=== PATIENT | female | born 1955 | race Caucasian/White ===

== ENCOUNTER 2016-05-28 23:48 | Inpatient (IN) | payer MEDICARE ==
[~2016-05-28] VITALS: Ht 165.1 cm; Wt 72.3 kg
[~2016-05-28 23:48] MED LIST: ESTR2TAB PO; GABA600T PO; IBUP-232 PO; KERASAL; [UNRECOGNIZED DRUG - CODE] PO; [UNRECOGNIZED DRUG - OTHER]; [UNRECOGNIZED DRUG - REMARK]
[2016-05-28 23:49] VITALS: BP 124/77; PULSE 59; RESP 16; TEMP 97.6; O2SAT 96
[2016-05-29] VITALS (21 sets, daily range): BP systolic 110–148; BP diastolic 52–73; PULSE 52–73; RESP 16–18; TEMP 97.8–98.4; O2SAT 91–97
[2016-05-29] MEDS ORDERED: SODIUM CHLORIDE 0.9% FLUSH 10 ML FLUSH IVF PRN (00:30)
[2016-05-29] MEDS ORDERED: ASPIRIN 81 MG CHEW TAB PO ONE (00:30)
[2016-05-29] MEDS: NITROGLYCERIN 0.4 MG SL 25 TABS/BTL SL SCH ×3 (00:35→00:54)
[2016-05-29 00:44] LABS: AUTOMATED NEUTROPHIL # 7.8 TH/MM3 (1.8-7.7); BASOPHIL # 0.1 TH/MM3 (0-0.2); BASOPHIL % 0.4 % (0.0-2.0); EOSINOPHIL # 0.2 TH/MM3 (0-0.4); EOSINOPHIL % 1.4 % (0.0-4.0); HEMO FLAGS DIFF FINAL; LYMPH % 27.2 % (9.0-44.0); LYMPHOCYTE # 3.2 TH/MM3 (1.0-4.8); MEAN CELL VOLUME 89.1 FL (80.0-100.0); MEAN CORPUSCULAR HEMOGLOBIN 30.1 PG (27.0-34.0); MEAN CORPUSCULAR HGB CONC 33.8 % (32.0-36.0); MONO % 5.8 % (0.0-8.0); NEUT % 65.2 % (16.0-70.0); PLATELET COUNT 275 TH/MM3 (150-450); RED BLOOD COUNT 4.38 MIL/MM3 (4.00-5.30); RED CELL DISTRIBUTION WIDTH 13.6 % (11.6-17.2); WHITE BLOOD COUNT 11.9 TH/MM3 (4.0-11.0)
--- NOTE | 2016-05-29 00:53 | RADRPT ---
EXAM DATE/TIME: 05/29/2016 00:40 [facility] COMPARISON: No previous studies available for comparison. INDICATIONS : Chest pain. MEDICAL HISTORY : None. SURGICAL HISTORY : None. ENCOUNTER: Initial ACUITY: 1 day PAIN SCORE: 6/10 LOCATION: Bilateral chest FINDINGS: A single view of the chest demonstrates the lungs to be symmetrically aerated without evidence of mas s, infiltrate or effusion. The cardiomediastinal contours are unremarkable. Osseous structures are intact. CONCLUSION: No acute disease. Louie Tanner Jr., MD on May 29, 2016 at 0:52 Board Certified Radiologist. This report was verified electronically.
[2016-05-29 00:58] LABS: APTT (PATIENT) 27.8 SEC (24.3-30.1); INTERNATIONAL NORMALIZED RATIO 0.9 RATIO; PROTHROMBIN TIME - PATIENT 10.2 SEC (9.8-11.6)
--- NOTE | 2016-05-29 01:06 | PD ---
HPI Chief Complaint: Chest Pain Time Seen by Provider: 00:18 Travel History International Travel<30 days: No Contact w/Intl Traveler<30days: No Traveled to known affect area: No History of Present Illness HPI Patient is a 61-year-old female with history of tobacco abuse who presents the emergency department with complaint of chest pain and syncopal episode. Approximately 3 hours prior to arrival patient was sitting on the front porch with her family, felt substernal chest pressure radiating to the arms. She describes a "pulsating" feeling in her arms at the time. This is followed with nausea, lightheadedness and a brief syncopal episode. After which patient came to and vomited. She has not had any recurrent syncopal episodes but her chest pain has been persistent. Chest pain is substernal, pressure. No associated shortness of breath. EMS was called to the house, patient declined transport. She has not taken anything for pain prior to arrival. She states her pain is approximately 3 out of 10 in severity at this time. She denies any history of cardiac problems, but describes having a stress test and a cardiac catheter approximately 10 years ago. Unclear why this was performed. PFSH Past Medical History Medical other: Yes (back problems) ?: Not : 2 Para: 1 Past Surgical History Hysterectomy: Yes Social History Alcohol Use: No Tobacco Use: Yes (1ppd) Substance Use: No Allergies-Medications (Allergen,Severity, Reaction): Coded Allergies: No Known Allergies (Unverified , 05/29/16) Reported Meds & Prescriptions Reported Meds & Active Scripts Active Gabapentin 600 Mg Tab 600 Mg PO TID Ibuprofen 600 Mg Tab 600 Mg PO Q6H PRN Estradiol 2 Mg Tab 2 Mg PO DAILY Review of Systems ROS Limitations: Poor Historian Except as stated in HPI: all other systems reviewed are Neg Physical Exam Narrative GENERAL: Adult female appearing older than stated age in no acute distress, smells heavily of tobacco SKIN: Focused skin assessment warm/dry. HEAD: Normocephalic. EYES: No scleral icterus. No injection or drainage. ENT: Mucous membranes pink and moist. NECK: Supple CARDIOVASCULAR: Regular rate and rhythm. No murmur appreciated. RESPIRATORY: No accessory muscle use. Clear to auscultation. Breath sounds equal bilaterally. GASTROINTESTINAL: Abdomen soft, non-tender, nondistended. MUSCULOSKELETAL: No obvious deformities. No edema. NEUROLOGICAL: Awake and alert. Motor grossly within normal limits. Normal speech. PSYCHIATRIC: Appropriate mood and affect; insight and judgment normal. Data Data Last Documented VS Vital Signs Date Time Temp Pulse Resp B/P Pulse Ox O2 Delivery O2 Flow Rate FiO2 05/29/16 00:41 91 Room Air 05/29/16 00:29 2 05/28/16 23:49 97.6 59 16 124/77 Orders Electrocardiogram (05/28/16 ) Complete Blood Count With Diff (05/28/16 23:56) Comprehensive Metabolic Panel (05/28/16 23:56) Troponin I (05/28/16 23:56) Prothrombin Time / Inr (Pt) (05/28/16 23:56) Chest, Single Ap (05/28/16 ) Ecg Monitoring (05/29/16 00:19) Bilateral Bp Monitoring (05/29/16 00:19) Iv Access Insert/Monitor (05/29/16 00:19) Oximetry (05/29/16 00:19) Oxygen Administration (05/29/16 00:19) Aspirin Chew (Aspirin Chew) (05/29/16 00:30) Sodium Chloride 0.9% Flush (Ns Flush) (05/29/16 00:30) Nitroglycerin Sl (Nitrostat Sl) (05/29/16 00:30) Electrocardiogram (05/29/16 ) Act Partial Throm Time (Ptt) (05/28/16 23:56) Ckmb (Isoenzyme) Profile (05/28/16 23:56) Magnesium (Mg) (05/28/16 23:56) Ondansetron Inj (Zofran Inj) (05/29/16 01:15) Electrocardiogram (05/29/16 ) Ondansetron Inj (Zofran Inj) (05/29/16 01:12) Heparin Infusion CORDELL.Q1H (05/29/16 01:21) Heparin Inj (Heparin Inj) (05/29/16 01:30) Heparin-D5w Inj (Heparin-D5w Inj) (05/29/16 01:30) Cbc No Diff, Includes Plts (06/01/16 06:00) Act Partial Throm Time (Ptt) (05/29/16 08:21) Occult Blood (Hemoccult) Stool (05/29/16 01:21) Nitroglycerin 2% Oint (Nitroglycerin 2% (05/29/16 01:30) Metoprolol Tartrate (Lopressor) (05/29/16 01:30) Consult Cardiology (05/29/16 ) Potassium Chloride (Kcl) (05/29/16 01:30) Diet Npo Except Meds (05/29/16 Breakfast) (Hub Use Only)Inp Phy Cons/Ref (05/29/16 ) Admit Order (Ed Use Only) (05/29/16 01:59) Labs Laboratory Tests Test 05/28/16 23:59 White Blood Count 11.9 TH/MM3 Red Blood Count 4.38 MIL/MM3 Hemoglobin 13.2 GM/DL Hematocrit 39.0 % Mean Corpuscular Volume 89.1 FL Mean Corpuscular Hemoglobin 30.1 PG Mean Corpuscular Hemoglobin 33.8 % Concent Red Cell Distribution Width 13.6 % Platelet Count 275 TH/MM3 Mean Platelet Volume 7.7 FL Neutrophils (%) (Auto) 65.2 % Lymphocytes (%) (Auto) 27.2 % Monocytes (%) (Auto) 5.8 % Eosinophils (%) (Auto) 1.4 % Basophils (%) (Auto) 0.4 % Neutrophils # (Auto) 7.8 TH/MM3 Lymphocytes # (Auto) 3.2 TH/MM3 Monocytes # (Auto) 0.7 TH/MM3 Eosinophils # (Auto) 0.2 TH/MM3 Basophils # (Auto) 0.1 TH/MM3 CBC Comment DIFF FINAL Differential Comment Prothrombin Time 10.2 SEC Prothromb Time International 0.9 RATIO Ratio Activated Partial 27.8 SEC Thromboplast Time Sodium Level 140 MEQ/L Potassium Level 3.4 MEQ/L Chloride Level 101 MEQ/L Carbon Dioxide Level 30.4 MEQ/L Anion Gap 9 MEQ/L Blood Urea Nitrogen 16 MG/DL Creatinine 1.06 MG/DL Estimat Glomerular Filtration 53 ML/MIN Rate Random Glucose 121 MG/DL Calcium Level 9.1 MG/DL Magnesium Level 1.7 MG/DL Total Bilirubin 0.2 MG/DL Aspartate Amino Transf 14 U/L (AST/SGOT) Alanine Aminotransferase 14 U/L (ALT/SGPT) Alkaline Phosphatase 52 U/L Total Creatine Kinase 91 U/L Troponin I 0.34 NG/ML Total Protein 7.1 GM/DL Albumin 3.6 GM/DL [facility] Medical Decision Making Medical Screen Exam Complete: Yes Emergency Medical Condition: Yes Medical Record Reviewed: Yes Differential Diagnosis 61-year-old female with history of tobacco abuse here with complaint of chest pain with associated presyncopal episode. Differential includes ACS, arrhythmia , musculoskeletal, GERD, symptomatic anemia, electrolyte abnormality and less likely PE or dissection. Narrative Course Patient placed on monitor, IV established and blood obtained. A twelve-lead EKG shows sinus rhythm. Patient has [address] elevation in V1, 0.[address] elevation in aVR. ST depression in lateral leads V5, V6 with T-wave inversions in 1 and aVL. There is no [address] elevation. Strong suspicion for non-STEMI at this time. Patient was given aspirin, nitroglycerin and is now reportedly pain-free. Portal chest x-ray obtained that by my read shows no acute abnormalities. Twelve-lead EKG was repeated approximately 25 minutes later with persistent EKG abnormalities but no evolving changes. At approximately 0110 patient is pain-free, but now having nausea and vomiting. Given 4 mg Zofran and 30 EKG obtained showing no evolving changes, less notable ST depression. CBC, CMP, magnesium, CK-MB, troponin, coags obtained and notable for potassium 3.4. Patient replaced 40 mEq. Troponin elevated 0.34. She was placed on heparin drip, Nitropaste, beta omar. Cardiology was consulted for cath, plan for likely tomorrow, and patient admitted to medicine. Critical Care Narrative Aggregate critical care time was 50 minutes. Time to perform other separately billable procedures was not included in the critical care time. My time did not include minutes spent treating any other patients simultaneously or on activities that did not directly contribute to the patient's treatment. The services I provided to this patient were to treat and/or prevent clinically significant deterioration that could result in: Cardio Pulmonary decompensation , , disability I provided critical care services requiring my management, as noted below: Chart data review, documentation time, medication orders and management, vital sign assessments/reviewing monitor data, ordering and reviewing lab tests, ordering and interpreting/reviewing x-rays and diagnostic studies, care of the patient and discussion of the patient with the admitting physicians. Diagnosis Primary Impression: Non-ST elevated myocardial infarction Additional Impressions: Tobacco use disorder Syncope Qualified Code: R55 - Syncope, unspecified syncope type Admitting Information Admitting Physician Requests: Admit Evens,Adrby N. MD May 29, 2016 01:06
[2016-05-29 01:09] LABS: ALT (GPT) 14 U/L (10-53); ANION GAP 9 MEQ/L (5-15); AST (GOT) 14 U/L (15-37); BICARBONATE 30.4 MEQ/L (21.0-32.0); BLOOD UREA NITROGEN 16 MG/DL (7-18); CHLORIDE 101 MEQ/L (98-107); GLOMERULAR FILTRATION RATE 53 ML/MIN (>89); MAGNESIUM 1.7 MG/DL (1.5-2.5); POTASSIUM 3.4 MEQ/L (3.5-5.1); SODIUM (NA) 140 MEQ/L (136-145)
[2016-05-29] MEDS ORDERED: ONDANSETRON HCL 4 MG/2 ML VIAL ONE (01:12)
[2016-05-29 01:13] LABS: ALKALINE PHOSPHATASE 52 U/L (45-117); TOTAL BILIRUBIN ADULT 0.2 MG/DL (0.2-1.0)
[2016-05-29] MEDS ORDERED: ONDANSETRON HCL 4 MG/2 ML VIAL IV PUSH ONE (01:15)
[2016-05-29 01:20] LABS: CREATINE KINASE 91 U/L (26-192)
[2016-05-29] MEDS ORDERED: METOPROLOL TARTRATE 25 MG TAB PO ONE (01:30)
[2016-05-29] MEDS ORDERED: POTASSIUM CHLORIDE 20 MEQ CONTROLLED RELEASE TAB PO ONE (01:30)
[2016-05-29] MEDS ORDERED: NITROGLYCERIN 2% OINT 1 GM PACKET TOPICAL ONE (01:30)
[2016-05-29] MEDS ORDERED: HEPARIN-D5W INJ 250 ML IV SCH (01:30)
[2016-05-29] MEDS ORDERED: HEPARIN SODIUM - IV 10,000 UNITS/10 ML VIAL IV ONE (01:30)
[2016-05-29] MEDS ORDERED: ONDANSETRON HCL 4 MG/2 ML VIAL IV PRN (02:45)
[2016-05-29] MEDS ORDERED: NALOXONE HCL 0.4 MG/ML AMP IV PRN ×2 (02:45→03:15)
[2016-05-29] MEDS ORDERED: SODIUM CHLORIDE 0.9% FLUSH 10 ML FLUSH IV FLUSH PRN (02:45)
[2016-05-29] MEDS: ATORVASTATIN 10 MG TAB PO SCH ×2 (02:45→20:48)
[2016-05-29] MEDS ORDERED: MORPHINE SULFATE 4 MG/ML INJ IV PRN ×2 (02:45→03:15)
[2016-05-29] MEDS ORDERED: NITROGLYCERIN 2% OINT 1 GM PACKET TOP PRN (02:45)
--- NOTE | 2016-05-29 03:01 | HHI.HP ---
[facility] Service Family Medicine Primary Care Physician Baljit Quezada MD Admission Diagnosis NSTEMI Diagnoses: International Travel<30 Days: No Contact w/Intl Traveler<30days: No Known Affected Area: No History of Present Illness 61 year old female with tobacco abuse presents to the ED with chest pain and syncope. Chest pain started about 4 hours ago. Onset was sudden, localized to the center of the chest, radiated to both arms but especially the left. It was associated with diaphoresis. She was sitting in a chair at the time. She felt warmth going down her arms and a heavy feeling. She had syncope for a few seconds and her told her that her eyes rolled to the back of her head. She did not have convulsions, bite her tongue, or lose her stool or urine. She' s had one episode of syncope in the distant past that came on suddenly. She did not seek medical care at that time. After the event she felt sick to her stomach and vomited once. The pain was 8/10. She also had diaphoresis during the event. Currently chest pain is 4/10 and she is in no distress. She had cardiac catheterization and stress test 10 years ago according to patient. She describes a similar event that occurred at that time minus the syncope. She reports workup at that time was negative for heart issue. She has chronic pain in her shoulders that is different from the pain she had tonight. No heavy lifting recently. No GERD like symptoms. No abdominal pain. She takes estradiol for menopausal symptoms. (Arsh Park MD R2) Review of Systems Constitutional: COMPLAINS OF: Diaphoretic episodes, DENIES: Fatigue, Fever, Weight gain, Weight loss, Chills, Change in appetite Endocrine: DENIES: Heat/cold intolerance, Polyuria, Polyphagia Eyes: DENIES: Diplopia, Eye inflammation, Eye pain, Vision loss, Double Vision Ears, nose, mouth, throat: DENIES: Tinnitus, Throat pain, Ear Pain Respiratory: DENIES: Cough, Wheezing, Hemoptysis, Sputum production, Shortness of breath Cardiovascular: COMPLAINS OF: Chest pain, Syncope, DENIES: Dyspnea on Exertion , Lower Extremity Edema, Orthopnea, Claudication Gastrointestinal: COMPLAINS OF: Nausea, Vomiting, DENIES: Abdominal pain, Black stools, Bloody stools, Constipation, Diarrhea, Difficulty Swallowing Genitourinary: DENIES: Urinary frequency Integumentary: DENIES: Rash Hematologic/lymphatic: DENIES: Lymphadenopathy Immunologic/allergic: DENIES: Eczema Neurologic: DENIES: Headache, Localized weakness, Paresthesias Psychiatric: COMPLAINS OF: Anxiety, DENIES: Depression (Arsh Park MD R2) Past Family Social History Past Medical History degenerative disk disease bone spurs bulging disks osteoarthritis Past Surgical History Hysterectomy, partial Reported Medications Reported Meds & Active Scripts Active Gabapentin 600 Mg Tab 600 Mg PO TID Ibuprofen 600 Mg Tab 600 Mg PO Q6H PRN Estradiol 2 Mg Tab 2 Mg PO DAILY (Arsh Park MD R2) Allergies: Coded Allergies: No Known Allergies (Unverified , 05/29/16) Family History Mother: lung cancer Father: lymphoma Sister pancreatic cancer Social History Smokes pack per day No alcohol use No drug use Lives with 3 grandchildren and Disabled, not working (Arsh Park MD R2) Physical Exam Vital Signs Vital Signs Date Time Temp Pulse Resp B/P Pulse Ox O2 Delivery O2 Flow Rate FiO2 05/29/16 02:16 68 18 144/66 95 Nasal Cannula 2 05/29/16 00:41 91 Room Air 05/29/16 00:29 94 Nasal Cannula 2 05/29/16 00:26 93 Room Air 05/28/16 23:49 97.6 59 16 124/77 96 Room Air Physical Exam GENERAL: Lying in bed, no distress SKIN: No rashes, ecchymoses or lesions. HEENT: Normocephalic, no scalp abrasions, no nasal discharge, normal pharynx NECK: Trachea midline. No JVD or lymphadenopathy. Supple, nontender, no meningeal signs. CARDIOVASCULAR: Regular rate and rhythm without murmurs, gallops, or rubs. RESPIRATORY: Clear to auscultation. Breath sounds equal bilaterally. No wheezes , rales, or rhonchi. GASTROINTESTINAL: Abdomen soft, non-tender, nondistended. No hepato-splenomegaly , or palpable masses. MUSCULOSKELETAL: Pain with palpation of the mid-chest, biceps tendon, and posterior shoulder. NEUROLOGICAL: Awake and alert. Cranial nerves II through XII intact. Motor and sensory grossly within normal limits. Normal speech. Oriented X3. Laboratory Laboratory Tests Test 05/28/16 23:59 White Blood Count 11.9 Red Blood Count 4.38 Hemoglobin 13.2 Hematocrit 39.0 Mean Corpuscular Volume 89.1 Mean Corpuscular Hemoglobin 30.1 Mean Corpuscular Hemoglobin 33.8 Concent Red Cell Distribution Width 13.6 Platelet Count 275 Mean Platelet Volume 7.7 Neutrophils (%) (Auto) 65.2 Lymphocytes (%) (Auto) 27.2 Monocytes (%) (Auto) 5.8 Eosinophils (%) (Auto) 1.4 Basophils (%) (Auto) 0.4 Neutrophils # (Auto) 7.8 Lymphocytes # (Auto) 3.2 Monocytes # (Auto) 0.7 Eosinophils # (Auto) 0.2 Basophils # (Auto) 0.1 CBC Comment DIFF FINAL Differential Comment Prothrombin Time 10.2 Prothromb Time International 0.9 Ratio Activated Partial 27.8 Thromboplast Time Sodium Level 140 Potassium Level 3.4 Chloride Level 101 Carbon Dioxide Level 30.4 Anion Gap 9 Blood Urea Nitrogen 16 Creatinine 1.06 Estimat Glomerular Filtration 53 Rate Random Glucose 121 Calcium Level 9.1 Magnesium Level 1.7 Total Bilirubin 0.2 Aspartate Amino Transf 14 (AST/SGOT) Alanine Aminotransferase 14 (ALT/SGPT) Alkaline Phosphatase 52 Total Creatine Kinase 91 Troponin I 0.34 Total Protein 7.1 Albumin 3.6 (Arsh Park MD R2) Result Diagram: 05/28/16 2359 05/28/16 2359 Septic Shock Reassessment Heart: Regular rate and rhythm Lungs: Clear (Arsh Park MD R2) Assessment and Plan Assessment and Plan 61 year old smoker with chest pain and syncope, initial troponin elevated with ST depressions on EKG. Code Status FULL CODE Discussed Condition With Will discuss with day team Discussed with Dr. Clayton (Arsh Park MD R2) Attending Attestation Patient seen and examined. Case reviewed and discussed with the resident team. Agree with plan of care as discussed with me and documented in the resident note. pt going to cath today, appreciate cardiology (Gaby Woodall MD) Problem List: (1) Chest pain Status: Acute Plan: Chest pain radiating down left arm. ST depressions in contiguous lateral leads on EKG. EKG's actually improving on repeat studies. ST elevation in V1 and aVR. T wave inversion in aVL. Initial troponin 0.34. Chest x-ray shows no acute process. Wells score 3.0. DDx includes DE, PE, aortic dissection, GERD, musculoskeletal pain, anxiety attack. - Heparin drip initiated in ED. 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 - Nitro paste PRN for chest pain. - Aspirin 325 given ED, continue at 81 mg daily - Plavix 75 mg daily - High dose statin started - Check lipid panel. - Metoprolol and willie inhibitor once stable - Check d-dimer (2) Syncope Status: Acute Plan: DDx: vasovagal response to pain, orthostatic instability, presyncope vs. true syncope, seizure, heart rhythm disorder - Telemetry monitoring - Carotid ultrasound - Echocardiogram - Fall precautions (3) Tobacco use disorder Status: Chronic Plan: Counseling on smoking cessation Has tried Wellbutrin and Chantix in the past (4) Nutrition, metabolism, and development symptoms Status: Acute Plan: NPO for cath in AM Corrected 3.4 potassium NS at maintenance (5) No contraindication to deep vein thrombosis (DVT) prophylaxis Status: Acute Plan: Heparin drip Bilateral SCD's (Arsh Park MD R2) Problem Qualifiers (1) Syncope: Qualified Code: R55 - Syncope, unspecified syncope type Arsh Park MD R2 May 29, 2016 03:01 Gaby Woodall MD May 29, 2016 17:49
[2016-05-29] MEDS ORDERED: ACETAMINOPHEN 325 MG TAB PO PRN (03:15)
[2016-05-29] MEDS ORDERED: oxyCODONE/ACETAMINOPHEN 10 MG/325 MG TAB PO PRN (03:15)
[2016-05-29] MEDS ORDERED: oxyCODONE/ACETAMINOPHEN 5 MG/325 MG TAB PO PRN (03:15)
[2016-05-29] MEDS: CLOPIDOGREL 75 MG TAB PO SCH ×2 (03:30→07:55)
[2016-05-29] MEDS: SODIUM CHLOR 0.9% 1000 ML INJ 1,000 ML IV SCH ×3 (04:04→23:30)
[2016-05-29 04:14] LABS: HDL CHOLESTEROL 65.7 MG/DL (40.0-60.0)
[2016-05-29 06:42] LABS: APTT (PATIENT) 62.1 SEC (24.3-30.1)
[2016-05-29 07:40] LABS: CKMB 52.4 NG/ML (0.5-3.6)
[2016-05-29] MEDS: SODIUM CHLORIDE 0.9% FLUSH 10 ML FLUSH IV FLUSH SCH ×2 (08:05→20:50)
--- NOTE | 2016-05-29 09:33 | RADRPT ---
EXAM DATE/TIME: 05/29/2016 07:20 [facility] COMPARISON: No previous studies available for comparison. INDICATIONS : Syncope. MEDICAL HISTORY : Syncope. SURGICAL HISTORY : Hysterectomy. ENCOUNTER: Initial ACUITY: 1 day PAIN SCORE: 02/15 LOCATION: Bilateral neck PEAK SYSTOLIC VELOCITIES (cm/sec): ICA/CCA RATIO: Right: 1.6 Left: 1.6 ICA: Right: 113 Left: 144 CCA: Right: 71 Left: 92 ECA: Right: 147 Left: 189 VERTEBRAL: Right: 56 antegrade Left: 47 antegrade Elevated flow velocities and ICA/CCA ratios have been found to correlate with increased degrees of vessel stenosis, calculated as percentage of diameter relative to a normal segment of distal ICA/CCA FINDINGS: RIGHT CAROTID: No significant stenosis is visualized. The waveforms are within normal limits. LEFT CAROTID: No significant stenosis is visualized. The waveforms are within normal limits. There is mild elevati on of the left internal carotid artery peak systolic velocity likely secondary to some tortuosity. No plaque is seen on the grayscale images. VERTEBRAL ARTERIES: Antegrade flow is seen in both vertebral arteries. MISCELLANEOUS: None. CONCLUSION: No acute disease. Toni Maher MD on May 29, 2016 at 9:30 Board Certified Radiologist. This report was verified electronically.
--- NOTE | 2016-05-29 09:34 | MB ---
cc: RAÚL DARBY DO DATE OF CONSULTATION: May 29, 2016 REASON FOR CONSULTATION Chest pain with elevated troponins. HISTORY OF PRESENT ILLNESS Le Middleton is a pleasant 61-year-old female who presents to [facility] Emergency Room on May 29, 2016 due to chest pain with a syncopal episode. She was sitting out on the porch with her and she started getting chest pain around 4 hours before arrival. Chest pain seemed to be sudden and localized to the center of her chest, radiating to both arms but more specifically the left arm. She did get diaphoretic with it. She started feeling warmth going down her arms and a heavy feeling. She syncopized for a few seconds and the went over to her and noticed her eyes had rolled back into her head and she was unresponsive for a short period of time. As she came to she was nauseous and vomited. On arrival to the emergency room she was noted to have an elevated troponin and placed on a heparin drip. As I see her this morning she is currently relatively chest pain free, has a small pressure 1 our of 10 in the left side of her chest. She has never had anything like this but she does get left arm pain but difficult to tell if it is musculoskeletal versus an anginal equivalent. PAST MEDICAL HISTORY 1. Degenerative disk disease. 2. Bulging disk. 3. Osteoarthritis. 4. Tobacco dependence. PAST SURGICAL HISTORY 1. Partial hysterectomy. ALLERGIES NO KNOWN DRUG ALLERGIES. MEDICATIONS 1. Gabapentin 600 mg t.i.d. 2. Estradiol 2 mg daily. 3. Ibuprofen 600 mg every 6 hours as needed for pain. FAMILY HISTORY Mother had lung cancer. Father had lymphoma. Sister had pancreatic cancer. Denies premature coronary artery disease or sudden cardiac within the family. SOCIAL HISTORY The patient smokes a pack of cigarettes a day. Denies alcohol or drug abuse. Lives at home with her and three grandchildren. REVIEW OF SYSTEMS 14-systems were reviewed including osteopathic pertinent positives and negatives above, otherwise negative. PHYSICAL EXAMINATION VITAL SIGNS: Temperature 97.6, heart rate 54, blood pressure 135/61, respirations 17, pulse ox 97% on 2 liters. GENERAL: The patient appears well but anxious, alert, awake and oriented x3. HEENT: Extraocular muscles intact. Mucous membranes moist. NECK: Supple. No JVD at 45 degrees. No carotid bruits heard bilaterally. Carotid upstroke is brisk in nature. HEART: Heart is regular rate and rhythm. Positive first and second heart sounds with no murmurs, gallops or rubs. PMI is nondisplaced. LUNGS: Lungs have decreased breath sounds at bilateral bases but otherwise no overt wheezes, rales or rhonchi. ABDOMEN: Soft, nontender, nondistended. No organomegaly noted. EXTREMITIES: Show no clubbing, cyanosis or edema. Femoral and distal pulses intact bilaterally. NEUROLOGIC: No focal deficits. OSTEOPATHIC: No kyphoscoliosis, lordosis or paraspinal tender points. LABORATORY FINDINGS Hemoglobin 13.2, hematocrit 39.0, platelets 275. D-dimer 1.63. Potassium 3.4, BUN 16, creatinine 1.06, troponin 16.5, triglycerides 92, total cholesterol 180, LDL 96, HDL 65.7. IMPRESSION 1. [id number] myocardial infarction, most likely type 1 in nature. 2. Elevated D-dimer which may be nonspecific with N-STEMI versus possible pulmonary embolus. 3. Acute kidney injury versus chronic kidney disease. 4. Tobacco abuse. 5. Syncopal episode after initial chest pain. RECOMMENDATIONS 1. Le appears to have presented with concern for coronary insufficiency and has an elevation of her troponins. Because of this I feel that she should go to the analyst microbiology lab sooner rather than later especially with her syncopal episode. 2. Risks, benefits and alternatives were explained to her and she consents as such. 3. We will have to watch her kidney function, although we do not have a baseline at this time. She will be lightly hydrated. 4. As far as her syncopal episode, this may be due to vasovagal with her chest pain versus decreased cardiac output with ischemia versus possibly arrhythmogenic. 5. If coronaries are relatively clean then consideration for pulmonary embolus will have to be made. Overall, I feel that her story is more likely to be cardiac in nature versus a pulmonary embolus. 6. We will check a 2-D echo to look at her overall left ventricular function, cardiac structure and possible valvulopathies. 7. She will be treated with aspirin, Plavix and statin therapy. We will watch her blood pressure and heart rate and we may reconsider Metoprolol and JAE inhibitor throughout the hospital stay. Depending on the results of the catheterization, Plavix may be changed to Brilinta. 8. Further recommendations after coronary visualization. Thank you for allowing me to see Le Middleton, if there are any questions please do not hesitate to call. Raúl Darby DO VGP/TLL /8:45 AM /9:17 AM
[2016-05-29 09:55] LABS: APTT (PATIENT) 49.6 SEC (24.3-30.1)
[2016-05-29] MEDS ORDERED: MIDAZOLAM HCL 2 MG/2 ML VIAL ONE (10:23)
[2016-05-29] MEDS ORDERED: HEPARIN-NS/PF INJ 500 ML ONE (10:23)
[2016-05-29] MEDS ORDERED: VERAPAMIL HCL 5 MG/2 ML VIAL ONE (10:24)
[2016-05-29] MEDS ORDERED: HEPARIN SODIUM - IV 10,000 UNITS/10 ML VIAL ONE (10:25)
[2016-05-29] MEDS ORDERED: HEPARIN-D5W INJ 250 ML ONE (11:25)
[2016-05-29] MEDS ORDERED: IOHEXOL 350 MG/ML 50 ML BTL (for Cath Lab) OTHER ONE (11:30)
[2016-05-29] MEDS ORDERED: IOHEXOL 350 MG/ML 10 ML VIAL (for RAD DIAG) IV ONE (12:08)
--- NOTE | 2016-05-29 13:17 | RADRPT ---
EXAM DATE/TIME: 05/29/2016 11:52 [facility] COMPARISON: No previous studies available for comparison. INDICATIONS : Short of breath. IV CONTRAST: 75 cc Omnipaque 350 (iohexol) IV RADIATION DOSE: 23.10 CTDIvol (mGy) MEDICAL HISTORY : None SURGICAL HISTORY : Hysterectomy. ENCOUNTER: Initial ACUITY: 1 day PAIN SCALE: 1/10 LOCATION: Chest TECHNIQUE: Volumetric scanning of the chest was performed using a pulmonary embolism protocol MIP images were reconstructed. Using automated exposure control and adjustment of the mA and/or kV acco rding to patient size, radiation dose was kept as low as reasonably achievable to obtain optimal diag nostic quality images. FINDINGS: Pulmonary arterial structures are well demonstrated. No pulmonary embolus is seen. There is emphyse matous changes and interstitial disease in the upper lungs. There is increased density identified independe ntly in the posterior lower lobes bilaterally likely related to atelectasis. There is a calcified granuloma in t he right lower lobe. No effusion is seen. The mediastinal structures are grossly intact. Significant adenopathy i s not seen. CONCLUSION: 1. No pulmonary embolus. 2. Chronic emphysematous and interstitial disease in the upper lungs. Toni Maher MD on May 29, 2016 at 12:46 Board Certified Radiologist. This report was verified electronically.
--- NOTE | 2016-05-29 13:40 | EKG ---
Date Performed: 05/29/2016 Time Performed: 01:15:18 PTAGE: 61 years EKG: Sinus rhythm NONSPECIFIC ST & T-WAVE ABNORMALITY Compared to prior tracing no significant change BORDERLINE ECG PREVIOUS TRACING : 05/29/2016 00.32 DOCTOR: Jose Padron Interpretating Date/Time 05/29/2016 13:38:58
--- NOTE | 2016-05-29 13:46 | EKG ---
Date Performed: 05/29/2016 Time Performed: 00:06:17 PTAGE: 61 years EKG: Sinus rhythm POSSIBLE RIGHT VENTRICULAR CONDUCTION DELAY MODERATE ST DEPRESSION Clinical correlation is recommend ed ABNORMAL ECG NO PREVIOUS TRACING DOCTOR: Jose Padron Interpretating Date/Time 05/29/2016 13:45:46
--- NOTE | 2016-05-29 13:46 | EKG ---
Date Performed: 05/29/2016 Time Performed: 00:32:44 PTAGE: 61 years EKG: Sinus rhythm MODERATE ST DEPRESSION Cannot rule out injury, continued clinical correlation reccommended ABNORMAL ECG NO PREVIOUS TRACING DOCTOR: Jose Padron Interpretating Date/Time 05/29/2016 13:46:15
--- NOTE | 2016-05-29 13:47 | EKG ---
Date Performed: 05/29/2016 Time Performed: 06:06:59 PTAGE: 61 years EKG: Sinus rhythm POSSIBLE RIGHT VENTRICULAR CONDUCTION DELAY ST changes have improved Compared to previous tracing, s uggesting resolution of ischemia Clinical correlation is recommended BORDERLINE ECG PREVIOUS TRACING : 05/29/2016 01.15 DOCTOR: Jose Padron Interpretating Date/Time 05/29/2016 13:46:48
--- NOTE | 2016-05-29 13:58 | MA ---
cc: RAÚL DARBY DO DATE: 05/29/2016. PROCEDURE PERFORMED: Left heart catheterization, coronary angiogram, moderate sedation 30 minutes. PREPROCEDURE DIAGNOSIS: NSTEMI, chest pain, syncope. And stenting, chest pain, syncope. POSTPROCEDURE DIAGNOSIS: NSTEMI, mild coronary artery disease. MEDICATIONS: Versed 0.5 milligrams, Fentanyl 25 micrograms, verapamil 2.5 milligrams, nitro 200 micrograms, heparin 3000 units. CONTRAST USED: 50 mL. FLUOROSCOPY TIME: 2.1 minutes. INDICATIONS FOR THE PROCEDURE/PROCEDURAL SUMMARY: Le Middleton as a pleasant 61-year-old female who presented overnight with an episode of chest pain and syncope. She was found to have an elevated troponin and there was a concern for coronary insufficiency with her chest pain. Because of this, she was recommended cardiac catheterization. Risks, benefits and alternatives were explained to her and she consented as such. DESCRIPTION OF THE PROCEDURE IN DETAIL: She was brought to the lab and prepped in the usual sterile fashion. Right radial artery was accessed using a modified Seldinger technique and placement of a 5/6 Arabic radial sheath. This was easily aspirated and flushed. A JR-4 was then advanced over a J-wire to the ascending aorta and across the aortic valve for measurements of the left ventricular pressure. JR-4 was then pulled back across the aortic valve showing no significant gradient of aortic stenosis. JR-4 was used for selective angiography of the right coronary artery. This was exchanged for a JL-3.5 which was used for selective angiography of the left coronary system. JL-3.5 was removed over a J-wire and a TR band was placed for radial artery hemostasis. 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 FINDINGS: Left main: A normal-appearing vessel with good reflux on injection and appears to bifurcate into a left anterior descending and circumflex. No significant disease noted. Left anterior descending: The left anterior descending overall is a normal-appearing vessel with mild areas of 10% disease but no significant blockages noted. It gives off two major diagonals with no significant disease. Left Circumflex: The left circumflex overall is a normal sized vessel. It has one major obtuse marginal with no significant disease. Right coronary artery: The right coronary artery is a dominant vessel in nature. It has a 10% lesion in the proximal portion but otherwise no significant disease through it, the PDA or PL branches. Left ventricular end diastolic pressure 22. IMPRESSIONS: 1. NSTEMI. 2. Mild coronary artery disease by cardiac catheterization (May 29, 2016). 3. Syncope. RECOMMENDATIONS: 1. No significant disease was found on catheterization to explain her elevation of troponins. 2. Because of the other concern with an elevated D dimer, syncope and chest pain, we will plan on getting a stat CTA to rule out possible pulmonary embolus as the cause. 3. We will also check a 2-D echo to look at the overall left ventricular function, cardiac structure and possible valvulopathies. One other cause could be Takotsubo cardiomyopathy. A left ventriculogram was not done due to the patient's kidney function as well as the plan for a stat CTA. 4. Until results of the CTA are back, we will plan on placing her on heparin drip at its previous rate. TR band may need to stay on longer had a zero pressure to help with hemostasis. Thank you for allowing me to see Le Middleton. If there are any questions please do not hesitate to call. Raúl Darby DO AAKASH/WILL /1:00 PM /1:47 PM
[2016-05-29 14:40] LABS: HDL CHOLESTEROL 62.8 MG/DL (40.0-60.0)
[2016-05-29 15:01] LABS: CKMB 67.3 NG/ML (0.5-3.6)
[2016-05-29 15:25] LABS: AMPHETAMINE, URINE NEG (NEG); BARBITURATES, URINE NEG (NEG); COCAINE, URINE NEG (NEG)
--- NOTE | 2016-05-29 16:58 | EC ---
Study Study Date:05/29/2016 STUDY CONCLUSIONS SUMMARY - Left ventricle: The cavity size was normal. Wall thickness was normal. Systolic function was probably normal. The estimated ejection fraction was in the range of 50% to 55%. Possible hypokinesis of the basal anteroseptal myocardium. Doppler parameters are consistent with abnormal left ventricular relaxation (grade 1 diastolic dysfunction). - Mitral valve: Mildly calcified annulus. If LV function is below 40, please consider prescribing an ACEI or ARB or document rationale for non-use. PROCEDURE DATA STUDY STATUS: Elective. Procedure: Transthoracic echocardiography. Image quality was good. Scanning was performed from the parasternal, apical, and subcostal acoustic windows. Study completion: The patient tolerated the procedure well. Transthoracic echocardiography. M-mode, complete 2D, complete spectral Doppler, and color Doppler. Patient status: Inpatient. CARDIAC ANATOMY LEFT VENTRICLE: The cavity size was normal. Wall thickness was normal. Systolic function was probably normal. The estimated ejection fraction was in the range of 50% to 55%. Regional wall motion abnormalities: Possible hypokinesis of the basal anteroseptal myocardium. Doppler parameters are consistent with abnormal left ventricular relaxation (grade 1 diastolic dysfunction). AORTIC VALVE: The valve appears to be grossly normal. Doppler: There was no stenosis. Trace to mild regurgitation. Peak gradient: 10mm Hg (S). MITRAL VALVE: Mildly calcified annulus. Doppler: There was no evidence for stenosis. No significant regurgitation. LEFT ATRIUM: The atrium was normal in size. RIGHT VENTRICLE: The cavity size was normal. PULMONIC VALVE: Not visualized. Doppler: There was no evidence for stenosis. Trace regurgitation. TRICUSPID VALVE: The valve appears to be grossly normal. Doppler: There was no evidence for stenosis. Trace regurgitation. PERICARDIUM: There was no pericardial effusion. BASIC MEASUREMENTS ADULT Normal Left ventricle LV internal dimension, ED, chordal level, 45.2 mm 43-52 PLAX LV internal dimension, ES, chordal level, *41.4 mm 23-38 PLAX Fractional shortening, chordal level, PLAX *8 % >29 LV posterior wall thickness, ED 6.94 mm IVS/LVPW ratio, ED 1.04 <1.3 Ventricular septum Septal thickness, ED 7.21 mm Aortic valve Leaflet separation 15 mm 15-26 Left atrium Anterior-posterior dimension 29 mm Right ventricle RV internal dimension, ED, PLAX *18.9 mm 19-38 BASIC MEASUREMENTS ADULT Normal Aortic valve Leaflet separation 15 mm 15-26 Aorta Root diameter, ED 26 mm 20-37 DOPPLER MEASUREMENTS ADULT Normal Main pulmonary artery Pressure, S *32 mm Hg =30 Aortic valve Peak velocity, S 161 cm/s Peak gradient, S 10 mm Hg Mitral valve Peak E-wave velocity 54.8 cm/s Peak A-wave velocity 84.4 cm/s Peak E/A ratio 0.6 Tricuspid valve Regurgitant peak velocity 255 cm/s Peak RV-RA gradient, S 26 mm Hg Maximal regurgitant velocity 255 cm/s Systemic veins Estimated CVP 5 mm Hg Right ventricle RV pressure, S *32 mm Hg <30 LEGEND: Mean values are shown as u=mean value. Asterisk (*) brumfield values outside specified normal range. Prepared and signed by Raúl Cha [id number]
[2016-05-29] MEDS ORDERED: BACITRACIN OINT 0.9 GM PKT ONE (17:43)
[2016-05-29 19:13] LABS: APTT (PATIENT) 48.7 SEC (24.3-30.1)
[2016-05-29] MEDS: ASPIRIN 81 MG CHEW TAB CHEW SCH (20:50)
[2016-05-30] VITALS (27 sets, daily range): BP systolic 135–155; BP diastolic 58–68; PULSE 55–71; RESP 16–18; TEMP 97.5–98.8; O2SAT 94–98
[2016-05-30 04:18] LABS: AUTOMATED NEUTROPHIL # 6.4 TH/MM3 (1.8-7.7); BASOPHIL # 0.1 TH/MM3 (0-0.2); BASOPHIL % 0.4 % (0.0-2.0); EOSINOPHIL # 0.2 TH/MM3 (0-0.4); EOSINOPHIL % 2.1 % (0.0-4.0); HEMATOCRIT 35.4 % (35.0-46.0); HEMO FLAGS DIFF FINAL; LYMPH % 35.2 % (9.0-44.0); LYMPHOCYTE # 4.1 TH/MM3 (1.0-4.8); MEAN CELL VOLUME 89.1 FL (80.0-100.0); MEAN CORPUSCULAR HEMOGLOBIN 29.8 PG (27.0-34.0); MEAN CORPUSCULAR HGB CONC 33.5 % (32.0-36.0); NEUT % 55.3 % (16.0-70.0); PLATELET COUNT 234 TH/MM3 (150-450); RED BLOOD COUNT 3.98 MIL/MM3 (4.00-5.30); RED CELL DISTRIBUTION WIDTH 13.5 % (11.6-17.2); WHITE BLOOD COUNT 11.6 TH/MM3 (4.0-11.0)
[2016-05-30 04:21] LABS: APTT (PATIENT) 46.4 SEC (24.3-30.1)
[2016-05-30 04:33] LABS: BICARBONATE 26.7 MEQ/L (21.0-32.0); POTASSIUM 3.6 MEQ/L (3.5-5.1)
[2016-05-30 07:11] LABS: APTT (PATIENT) 45.1 SEC (24.3-30.1)
[2016-05-30] MEDS: SODIUM CHLORIDE 0.9% FLUSH 10 ML FLUSH IV FLUSH SCH ×2 (09:00→21:05)
[2016-05-30] MEDS: SODIUM CHLOR 0.9% 1000 ML INJ 1,000 ML IV SCH (09:30)
[2016-05-30] MEDS: ASPIRIN 81 MG CHEW TAB CHEW SCH (09:55)
[2016-05-30] MEDS: CLOPIDOGREL 75 MG TAB PO SCH (09:55)
--- NOTE | 2016-05-30 11:11 | HHI.FPPN ---
Subjective Remarks No acute events overnight. Afebrile. Bradycardia, with pulse 56-60. Hypertensive to ~140/60s. Breathing well on room air Feels 100% well ,apart from chronic back pain. Denies chest pain, palpitations , syncope, shortness of breath. Eating well, voiding excessively with IVF running, last BM two days ago (Sat AM) . Discussed need for new medications at discharge after NSTEMI, such as statin and blood thinner. Would like to go home today, if possible. (Karley Ibarra MD R1) Objective Vitals Vital Signs Date Time Temp Pulse Resp B/P Pulse Ox O2 Delivery O2 Flow Rate FiO2 05/30/16 10:00 60 05/30/16 09:00 60 05/30/16 08:00 59 05/30/16 08:00 97.7 55 16 148/58 96 05/30/16 07:00 56 05/30/16 06:00 61 05/30/16 05:00 60 05/30/16 04:00 59 05/30/16 03:00 98.0 59 17 143/65 96 05/30/16 03:00 58 05/30/16 02:00 62 05/30/16 01:00 71 05/30/16 00:00 59 05/29/16 23:00 60 05/29/16 23:00 97.8 60 18 141/56 94 05/29/16 22:00 64 05/29/16 21:00 60 05/29/16 20:34 96 21 05/29/16 20:00 56 05/29/16 19:00 98.1 58 18 148/62 96 05/29/16 19:00 56 05/29/16 18:02 56 05/29/16 17:00 56 05/29/16 16:00 66 05/29/16 15:00 58 05/29/16 15:00 98.4 59 16 144/73 95 05/29/16 14:46 73 05/29/16 13:00 57 05/29/16 12:57 18 05/29/16 12:20 59 I/O 05/29/16 05/29/16 05/29/16 05/30/16 05/30/16 05/30/16 07:00 15:00 23:00 07:00 15:00 23:00 Intake Total 815 ml 1248 ml Output Total 200 ml 1300 ml Balance 615 ml -52 ml Intake Oral 480 ml 240 ml IV Total 335 ml 1008 ml Output Urine Total 200 ml 1300 ml # Voids 2 # Bowel Movements 0 (Karley Ibarra MD R1) Result Diagram: 05/30/16 0345 05/30/16 0345 Imaging Last Impressions Carotid Artery Ultrasound 05/29/16 0000 Signed Impressions: Service Date/Time: Sunday, May 29, 2016 07:20 - CONCLUSION: No acute disease. Toni Maher MD CT Angiography 05/29/16 0000 Signed Impressions: Service Date/Time: Sunday, May 29, 2016 11:52 - CONCLUSION: 1. No pulmonary embolus. 2. Chronic emphysematous and interstitial disease in the upper lungs. Toni Maher MD Chest X-Ray 05/28/16 0000 Signed Impressions: Service Date/Time: Sunday, May 29, 2016 00:40 - CONCLUSION: No acute disease. Louie Tanner Jr., MD Objective Remarks GENERAL: Adult female, lying in bed on left side, no distress SKIN: Warm and dry, no rashes HEENT: Pupils equal round and reactive to light. Moist mucous membranes. Oropharynx non-erythematous. NECK: Thick neck with prominent submandibular glands. No JVD or lymphadenopathy. CARDIOVASCULAR: Regular rate and rhythm without murmurs, gallops, or rubs. Radial and posterior tibial pulses 2+ RESPIRATORY: Clear to auscultation. Breath sounds equal bilaterally. No wheezes , rales, or rhonchi. GASTROINTESTINAL: Abdomen soft, non-tender, nondistended. +BS MUSCULOSKELETAL: No cyanosis or edema of extremities. NEUROLOGICAL: Awake and alert. Motor and sensory function grossly within normal limits. Normal speech PSYCH: Appropriate affect. Moderate insight. (Karley Ibarra MD R1) A/P Assessment and Plan 61 year old female with history of tobacco abuse, presenting 05/29/16 with chest pain and syncope, found to have NSTEMI Discharge Planning Discharge pending electrophysiology workup and recommendations from Cardiology ( Karley Ibarra MD R1) Attending Attestation Patient seen and examined. Case reviewed and discussed Agree with plan of care as discussed with me and documented in the resident note. (Mandi Garcia MD) Problem List: (1) NSTEMI (non-ST elevated myocardial infarction) Status: Acute Plan: Presented with chest pain radiating down left arm. Differential on admission included NM, PE, aortic dissection, GERD, musculoskeletal pain, anxiety attack EKG: ST depressions in contiguous lateral leads. Serial EKG's actually improving. ST elevation in V1 and aVR. T wave inversion in aVL. Initial troponin 0.34 -> 16.5 -> 23.7. Taken for cardiac catheterization which was reassurin% disease of RCA and LAD, L main and L circumflex wnl. Wells score 3.0 CXR: no acute process. Lipid Panel: T. chol 185/ LDL 82/ HDL 62/ TG 199. ASCVD risk: 8.4% (+Tobacco) - Cardiology consulted, appreciate recommendations - Discussed negative CTA results with Dr. Cha, in agreement for discontinuation of Heparin drip and IVF - Aspirin 81 mg daily - Plavix 75 mg daily - High dose statin, Atorvastatin 80mg HS daily - Beta-omar contraindicated secondary to bradycardia - Will start Amlodipine 5mg PO daily - Nitro paste PRN for chest pain. (2) Syncope Status: Acute Plan: Secondary to NSTEMI vs other electrocardiac dysfunction vs vasovagal response to pain. Carotid ultrasound without acute disease ECHO- EF 50-55%. Suggests grade I diastolic dysfunction with constricted LV and possible hypokinesis anteroseptal myocardium. Unlikely to be cause of syncopal event PE ruled out- Elevated D-dimer: 1.63, but CTA without evidence of PE PLAN - Dr. Bell to see today, likely further electrocardiac workup tomorrow - Continue Telemetry - Fall precautions (3) COPD (chronic obstructive pulmonary disease) with emphysema Status: Acute Plan: Emphysematous changes per CTA. also smokes. Has failed Chantix and Wellbutrin in attempt to quit. -Smoking cessation counseling provided -Nicotine patch/gum contraindicated with NSTEMI secondary to vasoconstrictive effects -Smoking cessation teaching also ordered (4) Post menopausal problems Status: Acute Plan: At high risk for DVT with estrogen replacement secondary to age and tobacco use. -hold home estradiol 2mg, recommend discontinuation at discharge, to discuss with patient (5) Left lumbar radiculopathy Status: Acute Plan: -continue home gabapentin 600mg TID (6) Nutrition, metabolism, and development symptoms Status: Acute Plan: Fluids: Encourage PO hydration Diet: Heart healthy Electrolyte: continue to monitor and replete, as needed DVT prophylaxis: Discontinue Heparin drip, Bilateral SCD's, Start Lovenox 40mg SQ HS GI prophylaxis: not indicated Constipation: Mellissa-Colase [address] tab [address] D[address] with Dr. Garcia (Karley Ibarra MD R1) Problem Qualifiers (1) Syncope: Qualified Code: R55 - Syncope, unspecified syncope type Karley Ibarra MD R1 May 30, 2016 11:10 Mandi Garcia MD June 13, 2016 08:53
--- NOTE | 2016-05-30 11:23 | PD.CARD.PN ---
Subjective Subjective Remarks No chest pain, no shortness of breath No events over night Objective Medications Current Medications Medications (Trade) Dose Ordered Sig/Won Route Start Time Stop Time Status Last Admin (Nitroglycerin 2% Oint) 1 inch Q4HR PRN TOP 05/29/16 02:45 (Morphine Inj) 2 mg Q30M PRN IV 05/29/16 02:45 05/29/16 08:24 (Zofran Inj) 4 mg Q6H PRN IV 05/29/16 02:45 05/29/16 17:36 (Lipitor) 80 mg HS PO 05/29/16 02:45 05/29/16 20:48 (NS Flush) 2 ml UNSCH PRN IV FLUSH 05/29/16 02:45 (NS Flush) 2 ml BID IV FLUSH 05/29/16 09:00 05/30/16 09:00 (Narcan Inj) 0.4 mg UNSCH PRN IV 05/29/16 02:45 (Tylenol) 650 mg Q6H PRN PO 05/29/16 03:15 (Percocet 5-325 Mg) 1 tab Q6H PRN PO 05/29/16 03:15 (Percocet 10-325 Mg) 1 tab Q6H PRN PO 05/29/16 03:15 (Morphine Inj) 1 mg Q3H PRN IV 05/29/16 03:15 (Aspirin Chew) 81 mg DAILY CHEW 05/29/16 21:00 05/30/16 09:55 (Plavix) 75 mg DAILY PO 05/29/16 03:30 05/30/16 09:55 Vital Signs / I&O Vital Signs Date Time Temp Pulse Resp B/P Pulse Ox O2 Delivery O2 Flow Rate FiO2 05/30/16 11:10 97.5 59 16 135/65 94 05/30/16 10:00 60 05/30/16 09:00 60 05/30/16 08:00 59 05/30/16 08:00 97.7 55 16 148/58 96 05/30/16 07:00 56 05/30/16 06:00 61 05/30/16 05:00 60 05/30/16 04:00 59 05/30/16 03:00 98.0 59 17 143/65 96 05/30/16 03:00 58 05/30/16 02:00 62 05/30/16 01:00 71 05/30/16 00:00 59 05/29/16 23:00 60 05/29/16 23:00 97.8 60 18 141/56 94 05/29/16 22:00 64 05/29/16 21:00 60 05/29/16 20:34 96 21 05/29/16 20:00 56 05/29/16 19:00 98.1 58 18 148/62 96 05/29/16 19:00 56 05/29/16 18:02 56 05/29/16 17:00 56 05/29/16 16:00 66 05/29/16 15:00 58 05/29/16 15:00 98.4 59 16 144/73 95 05/29/16 14:46 73 05/29/16 13:00 57 05/29/16 12:57 18 05/29/16 12:20 59 I/O 05/29/16 05/29/16 05/29/16 05/30/16 05/30/16 05/30/16 07:00 15:00 23:00 07:00 15:00 23:00 Intake Total 815 ml 1248 ml Output Total 200 ml 1300 ml Balance 615 ml -52 ml Intake Oral 480 ml 240 ml IV Total 335 ml 1008 ml Output Urine Total 200 ml 1300 ml # Voids 2 # Bowel Movements 0 Physical Exam GENERAL: NAD, AAOx3 SKIN: Warm and dry. HEAD: Atraumatic. Normocephalic. EYES: Pupils equal and round. No scleral icterus. No injection or drainage. ENT: No nasal bleeding or discharge. Mucous membranes pink and moist. NECK: Trachea midline. No JVD. CARDIOVASCULAR: Regular rate and rhythm. RESPIRATORY: No accessory muscle use. Clear to auscultation. Breath sounds equal bilaterally. GASTROINTESTINAL: Abdomen soft, non-tender, nondistended. Hepatic and splenic margins not palpable. MUSCULOSKELETAL: Extremities without clubbing, cyanosis, or edema. No obvious deformities. Right radial no hematoma, neurovascularly intact distally NEUROLOGICAL: Awake and alert. No obvious cranial nerve deficits. Motor grossly within normal limits. Five out of 5 muscle strength in the arms and legs. Normal speech. PSYCHIATRIC: Appropriate mood and affect; insight and judgment normal. Laboratory Laboratory Tests Test 05/29/16 05/29/16 05/29/16/24/17 12:28 14:15 18:45 03:45 Total Creatine Kinase 706 U/L Creatine Kinase MB 67.3 NG/ML Creatine Kinase MB % 9.5 % Troponin I 23.70 NG/ML Triglycerides Level 199 MG/DL Cholesterol Level 185 MG/DL LDL Cholesterol 82 MG/DL HDL Cholesterol 62.8 MG/DL Cholesterol/HDL Ratio 2.94 RATIO Urine Opiates Screen NEG Urine Barbiturates Screen NEG Urine Amphetamines Screen NEG Urine Benzodiazepines Screen POS Urine Cocaine Screen NEG Urine Cannabinoids Screen NEG Activated Partial 48.7 SEC 46.4 SEC Thromboplast Time White Blood Count 11.6 TH/MM3 Red Blood Count 3.98 MIL/MM3 Hemoglobin 11.9 GM/DL Hematocrit 35.4 % Mean Corpuscular Volume 89.1 FL Mean Corpuscular Hemoglobin 29.8 PG Mean Corpuscular Hemoglobin 33.5 % Concent Red Cell Distribution Width 13.5 % Platelet Count 234 TH/MM3 Mean Platelet Volume 7.9 FL Neutrophils (%) (Auto) 55.3 % Lymphocytes (%) (Auto) 35.2 % Monocytes (%) (Auto) 7.0 % Eosinophils (%) (Auto) 2.1 % Basophils (%) (Auto) 0.4 % Neutrophils # (Auto) 6.4 TH/MM3 Lymphocytes # (Auto) 4.1 TH/MM3 Monocytes # (Auto) 0.8 TH/MM3 Eosinophils # (Auto) 0.2 TH/MM3 Basophils # (Auto) 0.1 TH/MM3 CBC Comment DIFF FINAL Differential Comment Sodium Level 140 MEQ/L Potassium Level 3.6 MEQ/L Chloride Level 106 MEQ/L Carbon Dioxide Level 26.7 MEQ/L Anion Gap 7 MEQ/L Blood Urea Nitrogen 9 MG/DL Creatinine 0.82 MG/DL Estimat Glomerular Filtration 71 ML/MIN Rate Random Glucose 99 MG/DL Calcium Level 8.1 MG/DL Lipase 66 U/L Test 05/30/16 06:26 Activated Partial 45.1 SEC Thromboplast Time Assessment and Plan Problem List: (1) Chest pain (2) Syncope (3) Non-ST elevated myocardial infarction (4) Tobacco use disorder Assessment and Plan 1) Cath showing no significant lesions/ulcers 2) EF 50-55%, no Takotsubo cardiomyopathy 3) CTA with no PE 4) Consult Dr. Arabella, EP, for consideration of EP study to rule out significant arrhythmia 5) Will place on Norvasc 5mg daily in case this was due to vasospasm 6) Would technically continue ASA indefinitely and Plavix for 1 year 7) Can stop Heparin drip 8) Continue on Lipitor for plaque stabilization 9) Tobacco cessation, which may lead to coronary vasospasm Problem Qualifiers (1) Syncope: Qualified Code: R55 - Syncope, unspecified syncope type Raúl Cha DO May 30, 2016 11:23
[2016-05-30] MEDS: amLODIPine BESYLATE 5 MG TAB PO SCH (11:38)
[2016-05-30] MEDS: ENOXAPARIN SODIUM 40 MG/0.4 ML SYRINGE SQ SCH (16:49)
[2016-05-30] MEDS: GABAPENTIN 300 MG CAP PO SCH (18:00)
[2016-05-30] MEDS ORDERED: DOCUSATE SODIUM 50 MG/SENNA 8.6 MG TAB PO SCH (21:00)
[2016-05-30] MEDS: ATORVASTATIN 10 MG TAB PO SCH (21:07)
[2016-05-31] VITALS (25 sets, daily range): BP systolic 120–145; BP diastolic 54–73; PULSE 55–84; RESP 16–20; TEMP 97.5–98.8; O2SAT 94–98
[2016-05-31] MEDS ORDERED: CHLORHEXIDINE GLUCONATE 2 % 1 PACK (2 CLOTHS) TOPICAL PRN (00:30)
[2016-05-31] MEDS ORDERED: POVIDONE IODINE 5% (ANTISEPSIS KIT) 4 APPLICATIONS EACH NARE PRN (00:30)
[2016-05-31] MEDS ORDERED: INSULIN HUMAN REGULAR 1,000 UNITS/10 ML VIAL SQ PRN (00:30)
[2016-05-31] MEDS ORDERED: LACTATED RINGER'S 1000 ML IV PRN (00:30)
[2016-05-31] MEDS ORDERED: METOPROLOL TARTRATE 25 MG TAB PO PRN (00:30)
[2016-05-31 06:55] LABS: APTT (PATIENT) 30.2 SEC (24.3-30.1)
[2016-05-31 07:31] LABS: BICARBONATE 29.9 MEQ/L (21.0-32.0); POTASSIUM 3.3 MEQ/L (3.5-5.1)
[2016-05-31] MEDS: CLOPIDOGREL 75 MG TAB PO SCH (07:57)
[2016-05-31] MEDS: ASPIRIN 81 MG CHEW TAB CHEW SCH (07:57)
[2016-05-31] MEDS: GABAPENTIN 300 MG CAP PO SCH ×3 (07:57→18:53)
[2016-05-31] MEDS: amLODIPine BESYLATE 5 MG TAB PO SCH (07:57)
[2016-05-31] MEDS: SODIUM CHLORIDE 0.9% FLUSH 10 ML FLUSH IV FLUSH SCH (07:58)
--- NOTE | 2016-05-31 08:15 | HHI.FPPN ---
Subjective Remarks No acute events overnight. Afebrile. Vitals signs within normal limits. Eating well yesterday, prior to being NPO this AM Voiding well. Has not yet had BM (last three days ago, Sat AM). Got up to go to bathroom without difficulty or signs of ataxia or orthostatic hypotension. Patient NPO for EP study this AM. She is still eager to go home as she worries is too lenient with her grandchildren. Medications were clarified- she takes home gabapentin 600mg TID, ibuprofen 600mg daily for back pain, and estradiol 2mg daily (started 2-3 months ago). Counseled estrogen use with smoking increases her risk of DVTs and recommended she take ibuprofen with food to reduce GI upset. (Karley Ibarra MD R1) Objective Vitals Vital Signs Date Time Temp Pulse Resp B/P Pulse Ox O2 Delivery O2 Flow Rate FiO2 05/31/16 06:05 62 05/31/16 05:15 62 05/31/16 04:00 62 05/31/16 04:00 98.4 62 18 136/73 98 05/31/16 03:00 62 05/31/16 02:00 58 05/31/16 01:02 57 05/31/16 00:04 55 05/31/16 00:00 98.8 55 18 145/64 98 05/30/16 23:00 56 05/30/16 22:00 55 05/30/16 21:00 65 05/30/16 20:00 70 05/30/16 19:40 98.8 69 18 155/63 98 05/30/16 19:00 70 05/30/16 18:01 66 05/30/16 17:00 70 05/30/16 16:51 98.4 68 18 144/68 95 05/30/16 16:00 71 05/30/16 15:00 70 05/30/16 14:16 60 05/30/16 13:31 58 05/30/16 12:02 57 05/30/16 11:41 55 05/30/16 11:10 97.5 59 16 135/65 94 05/30/16 10:00 60 05/30/16 09:00 60 I/O 05/30/16 05/30/16 05/30/16 05/31/16 05/31/16 05/31/16 07:00 15:00 23:00 07:00 15:00 23:00 Intake Total 1248 ml 720 ml 480 ml Output Total 1300 ml 600 ml 900 ml Balance -52 ml 120 ml -420 ml Intake Oral 240 ml 720 ml 480 ml IV Total 1008 ml Output Urine Total 1300 ml 600 ml 900 ml # Voids 2 # Bowel Movements 0 (Karley Ibarra MD R1) Result Diagram: 05/30/16 0345 05/31/16 0527 Imaging Last Impressions Carotid Artery Ultrasound 05/29/16 0000 Signed Impressions: Service Date/Time: Sunday, May 29, 2016 07:20 - CONCLUSION: No acute disease. Toni Maher MD CT Angiography 05/29/16 0000 Signed Impressions: Service Date/Time: Sunday, May 29, 2016 11:52 - CONCLUSION: 1. No pulmonary embolus. 2. Chronic emphysematous and interstitial disease in the upper lungs. Toni Maher MD Chest X-Ray 05/28/16 0000 Signed Impressions: Service Date/Time: Sunday, May 29, 2016 00:40 - CONCLUSION: No acute disease. Louie Tanner Jr., MD Objective Remarks GENERAL: Adult female, sitting up in bed, smiling, no acute distress SKIN: Warm and dry, no rashes HEENT: Pupils equal round and reactive to light. Minimally moist mucous membranes. Oropharynx non-erythematous. NECK: Thick neck with prominent submandibular glands. No JVD or lymphadenopathy. CARDIOVASCULAR: Regular rate and rhythm without murmurs or gallops.. Radial and posterior tibial pulses 2+. Capillary refill <2 sec. RESPIRATORY: Lungs clear to auscultation. Breath sounds equal bilaterally. No wheezes, rales, or rhonchi. GASTROINTESTINAL: Abdomen soft, non-tender, nondistended. +BS MUSCULOSKELETAL: No peripheral edema NEUROLOGICAL: Awake and alert. Motor and sensory function grossly within normal limits. Normal speech PSYCH: Appropriate affect and judgement. Procedures 05/31/16: Electrophysiology Study (Dr. Bell) (Karley Ibarra MD R1) A/P Assessment and Plan 61 year old female with history of tobacco abuse, presenting 05/29/16 with chest pain and syncope, diagnosed with NSTEMI. Discharge Planning Discharge pending electrophysiology workup and recommendations from Cardiology ( Karley Ibarra MD R1) Attending Attestation Patient seen and examined. Case reviewed and discussed Agree with plan of care as discussed with me and documented in the resident note. (Mandi Garcia MD) Problem List: (1) NSTEMI (non-ST elevated myocardial infarction) Status: Acute Plan: Presented with chest pain radiating down left arm and syncope that occurring suddenly while sitting in chair. Differential on admission included NV, PE, aortic dissection, GERD, musculoskeletal pain, anxiety attack. Taken for cardiac catheterization (05/30): showed 10% disease of RCA and LAD, L main and L circumflex wnl. Reassuring cardiac catheterization and imaging suggests NSTEMI and syncopal event increases suspicion for cardiac arrhythmia, rather than atherosclerotic disease pathology PLAN Cardiology consulted, appreciate recommendations - Aspirin 81 mg daily, indefinitely - Plavix 75 mg daily, continue for 1 year (05/2017) - High dose statin, Atorvastatin 80mg HS daily for plaque stabilization - Beta-omar contraindicated secondary to bradycardia - Amlodipine 5mg PO daily - Nitro paste PRN for chest pain - Tobacco cessation Labs Troponins 0.34 -> 16.5 -> 23.7 Lipid Panel: T. chol 185/ LDL 82/ HDL 62/ TG 199. ASCVD risk: 8.4% (+Tobacco) Imaging EKG: ST depressions in contiguous lateral leads. Serial EKG's improving. ST elevation in V1 and aVR. T wave inversion in aVL. ECHO- EF 50-55%. No Taktsubo cardiomyopathySuggests grade I diastolic dysfunction with constricted LV and possible hypokinesis anteroseptal myocardium (2) Syncope Status: Acute Plan: Unprompted syncope and relatively normal atherosclerotic disease workup for patient increases suspicion for cardiac arrhythmia vs electrolyte abnormality or vasovagal cause. Wells Score 3.0. Elevated D-dimer: 1.63, but CTA without evidence of PE Carotid ultrasound without acute disease PLAN - Dr Bell consulted by Dr Cha to evaluate for EP study - EP study today - Continue Telemetry - Fall precautions (3) COPD (chronic obstructive pulmonary disease) with emphysema Status: Acute Plan: Emphysematous changes per CTA. also smokes. Has failed Chantix and Wellbutrin in attempt to quit. CXR: no acute process. -Smoking cessation counseling provided -Nicotine patch/gum contraindicated with NSTEMI secondary to vasoconstrictive effects -Smoking cessation teaching also ordered -Agreeable to start Wellbutrin to help, will start Wellbutrin SR 150mg daily ( recommended 7-12 weeks with efforts to quit) (4) Post menopausal problems Status: Acute Plan: At high risk for DVT with estrogen replacement secondary to age and tobacco use. -hold home estradiol 2mg -recommend discontinuation at discharge if continues to smoke -patient wishes to discuss further with Dr. Davila, PCP (5) Left lumbar radiculopathy Status: Acute Plan: -continue home gabapentin 600mg TID (6) Mechanical low back pain Status: Acute Plan: -Hold home ibuprofen 600mg daily, discontinue at discharge due to increased risk of NV -Naproxen 250mg BID PRN pain 5-10, to continue to discharge, monitor for bleeding risk combined with Plavix and aspirin 81mg (7) Leukocytosis Status: Acute Plan: Leukocytosis to 11.9 on admission. Suspect stress reaction secondary to NSTEMI. No other signs of infection. CXR without acute disease. Afebrile. -Trend CBC -Continue to monitor for infection (8) Nutrition, metabolism, and development symptoms Status: Acute Plan: Fluids: Encourage PO hydration Electrolyte: Hypokalemia to 3.3, will replete upon return from EP study with 30 KCl PO. Continue to monitor and replete, as needed Diet: NPO for procedure, advance to heart healthy diet when returns DVT prophylaxis: Bilateral SCD's, Lovenox 40mg SQ daily GI prophylaxis: not indicated Constipation: Mellissa-Colace 2 tab HS Last stool three days prior, will add Miralax x1 Discussed with Dr. Garcia (Karley Ibarra MD R1) Problem Qualifiers (1) Syncope: Qualified Code: R55 - Syncope, unspecified syncope type Karley Ibarra MD R1 May 31, 2016 08:15 Mandi Garcia MD June 13, 2016 08:54
--- NOTE | 2016-05-31 08:24 | MB ---
cc: EDIS PERALTA MD, HANSCY M.D. VERZAL, RHONDA MD DATE OF CONSULTATION 05/30/2016 REASON FOR CONSULTATION Tachyarrhythmia. Syncope. For electrophysiology study. HISTORY OF PRESENT ILLNESS Ms. Le Middleton is a 61-year-old female with no significant history of systemic illness except the patient smoked, admitted due to syncopal episode. During the hospitalization troponin increased. Left heart catheterization was done by Dr. Cha and that indicated no occlusion. The ejection fraction is normal. The patient has some tachyarrhythmia. I was consulted for evaluation and management. The chart was reviewed. The patient was evaluated. ALLERGIES None. SOCIAL HISTORY The patient is still smoking. FAMILY HISTORY Noncontributory to her current medical condition. MEDICATIONS 1. Lovenox. 2. Neurontin. 3. Amlodipine. 4. Aspirin. 5. Plavix. 6. Percocet. 7. Zofran. REVIEW OF SYSTEMS She refers no chest pain, no chest discomfort. No vomiting, no fever. PHYSICAL EXAMINATION GENERAL: Alert, fully oriented. VITAL SIGNS: Her blood pressure is 144/68, pulse 68, respiratory rate 18. LUNGS: Ventilated. CARDIOVASCULAR: S1-S2, no gallop, no murmur. ABDOMEN: Soft. No mass. No bruit. EXTREMITIES: No edema. ELECTROCARDIOGRAM Sinus rhythm, diffuse ST changes. LABORATORY DATA Hemoglobin 11.9, white blood cell count 11.6. Potassium 3.6, creatinine 0.82. Troponin was over 23.7. ASSESSMENT AND RECOMMENDATIONS Mrs. Middleton was admitted due to syncopal episode. During hospitalization she developed some discomfort. Troponin increased up to 23.7. Left heart catheterization showed no occlusion. There is no wall dyskinesia. Ejection fraction is normal. The CT angio was negative for pulmonary embolism. There was some nonsustained VT episodes, also tachyarrhythmia suspected. The case was discussed extensively Dr. Cha for the past two days and also the case was discussed with Ms. Middleton. At this point the best approach is an electrophysiology study. Based on the results, further decision will be taken. The patient will be kept on n.p.o. after midnight for procedure in the morning. Francisco J Bell MD HS/SSB /11:51 PM /8:15 AM
[2016-05-31] MEDS ORDERED: POTASSIUM CHLORIDE INJ 40 MEQ in SODIUM CHLORID 0.9% 500 ML INJ 500 ML IV ONE (11:00)
--- NOTE | 2016-05-31 11:03 | PD.CARD.PN ---
Subjective Subjective Remarks No chest pain, doing well over night Objective Medications Current Medications Medications (Trade) Dose Ordered Sig/Won Route Start Time Stop Time Status Last Admin (Nitroglycerin 2% Oint) 1 inch Q4HR PRN TOP 05/29/16 02:45 (Morphine Inj) 2 mg Q30M PRN IV 05/29/16 02:45 05/29/16 08:24 (Zofran Inj) 4 mg Q6H PRN IV 05/29/16 02:45 05/29/16 17:36 (Lipitor) 80 mg HS PO 05/29/16 02:45 05/30/16 21:07 (NS Flush) 2 ml UNSCH PRN IV FLUSH 05/29/16 02:45 (NS Flush) 2 ml BID IV FLUSH 05/29/16 09:00 05/31/16 07:58 (Narcan Inj) 0.4 mg UNSCH PRN IV 05/29/16 02:45 (Tylenol) 650 mg Q6H PRN PO 05/29/16 03:15 (Aspirin Chew) 81 mg DAILY CHEW 05/29/16 21:00 05/31/16 07:57 (Plavix) 75 mg DAILY PO 05/29/16 03:30 05/31/16 07:57 (Norvasc) 5 mg DAILY PO 05/30/16 11:30 05/31/16 07:57 (Lovenox Inj) 40 mg Q24H SQ 05/30/16 14:00 05/30/16 16:49 (Neurontin) 600 mg TID PO 05/30/16 18:00 05/31/16 07:57 Senna/Docusate Sodium 2 tab 2 tab HS PO 05/30/16 21:00 05/30/16 21:04 (Lr 1000 ml Inj) 1,000 ml @ 30 mls/hr Q24H PRN IV 05/31/16 00:30 06/03/16 00:29 (Wellbutrin Sr) 150 mg DAILY PO 06/01/16 09:00 Polyethylene Glycol 17 gm 17 gm ONCE ONCE PO 05/31/16 16:00 05/31/16 16:01 (KCl Inj/NS 500 ml Inj) 520 ml @ 130 mls/hr Q4H ONCE IV 05/31/16 11:00 05/31/16 14:59 Vital Signs / I&O Vital Signs Date Time Temp Pulse Resp B/P Pulse Ox O2 Delivery O2 Flow Rate FiO2 05/31/16 06:05 62 05/31/16 05:15 62 05/31/16 04:00 62 05/31/16 04:00 98.4 62 18 136/73 98 05/31/16 03:00 62 05/31/16 02:00 58 05/31/16 01:02 57 05/31/16 00:04 55 05/31/16 00:00 98.8 55 18 145/64 98 05/30/16 23:00 56 05/30/16 22:00 55 05/30/16 21:00 65 05/30/16 20:00 70 05/30/16 19:40 98.8 69 18 155/63 98 05/30/16 19:00 70 05/30/16 18:01 66 05/30/16 17:00 70 05/30/16 16:51 98.4 68 18 144/68 95 05/30/16 16:00 71 05/30/16 15:00 70 05/30/16 14:16 60 05/30/16 13:31 58 05/30/16 12:02 57 05/30/16 11:41 55 05/30/16 11:10 97.5 59 16 135/65 94 I/O 05/30/16 05/30/16 05/30/16 05/31/16 05/31/16 05/31/16 07:00 15:00 23:00 07:00 15:00 23:00 Intake Total 1248 ml 720 ml 480 ml Output Total 1300 ml 600 ml 900 ml Balance -52 ml 120 ml -420 ml Intake Oral 240 ml 720 ml 480 ml IV Total 1008 ml Output Urine Total 1300 ml 600 ml 900 ml # Voids 2 # Bowel Movements 0 Physical Exam GENERAL: NAD, AAOx3 SKIN: Warm and dry. HEAD: Atraumatic. Normocephalic. EYES: Pupils equal and round. No scleral icterus. No injection or drainage. ENT: No nasal bleeding or discharge. Mucous membranes pink and moist. NECK: Trachea midline. No JVD. CARDIOVASCULAR: Regular rate and rhythm. RESPIRATORY: No accessory muscle use. Clear to auscultation. Breath sounds equal bilaterally. GASTROINTESTINAL: Abdomen soft, non-tender, nondistended. Hepatic and splenic margins not palpable. MUSCULOSKELETAL: Extremities without clubbing, cyanosis, or edema. No obvious deformities. Right radial no hematoma, neurovascularly intact distally NEUROLOGICAL: Awake and alert. No obvious cranial nerve deficits. Motor grossly within normal limits. Five out of 5 muscle strength in the arms and legs. Normal speech. PSYCHIATRIC: Appropriate mood and affect; insight and judgment normal. Laboratory Laboratory Tests Test 05/31/16 05:27 Activated Partial 30.2 SEC Thromboplast Time Sodium Level 143 MEQ/L Potassium Level 3.3 MEQ/L Chloride Level 107 MEQ/L Carbon Dioxide Level 29.9 MEQ/L Anion Gap 6 MEQ/L Blood Urea Nitrogen 9 MG/DL Creatinine 0.80 MG/DL Estimat Glomerular Filtration 73 ML/MIN Rate Random Glucose 92 MG/DL Calcium Level 8.2 MG/DL Assessment and Plan Problem List: (1) Chest pain (2) Syncope (3) Non-ST elevated myocardial infarction (4) Tobacco use disorder Assessment and Plan 1) Cath showing no significant lesions/ulcers 2) EF 50-55%, no Takotsubo cardiomyopathy 3) CTA with no PE 4) Plan EP study today 5) Will place on Norvasc 5mg daily in case this was due to vasospasm 6) Would technically continue ASA indefinitely and Plavix for 1 year 7) Continue on Lipitor for plaque stabilization 8) Tobacco cessation, which may lead to coronary vasospasm 9) Will await recommendations from Dr. Bell post EP study Problem Qualifiers (1) Syncope: Qualified Code: R55 - Syncope, unspecified syncope type Raúl Cha DO May 31, 2016 11:03
[2016-05-31] MEDS ORDERED: ISOPROTERENOL HCL 1 MG/5 ML AMP ONE (11:04)
[2016-05-31] MEDS ORDERED: PROPOFOL 200 MG/20 ML AMP IV ONE (12:09)
[2016-05-31 13:08] LABS: HEMATOCRIT 37.4 % (35.0-46.0); MEAN CELL VOLUME 89.7 FL (80.0-100.0); MEAN CORPUSCULAR HEMOGLOBIN 30.3 PG (27.0-34.0); MEAN CORPUSCULAR HGB CONC 33.7 % (32.0-36.0); PLATELET COUNT 221 TH/MM3 (150-450); RED BLOOD COUNT 4.17 MIL/MM3 (4.00-5.30); RED CELL DISTRIBUTION WIDTH 13.5 % (11.6-17.2); REVIEW FLAG FINAL; WHITE BLOOD COUNT 10.5 TH/MM3 (4.0-11.0)
[2016-05-31] MEDS: ENOXAPARIN SODIUM 40 MG/0.4 ML SYRINGE SQ SCH (15:53)
[2016-05-31] MEDS ORDERED: POLYETHYLENE GLYCOL 17 GM PKG PO ONE (16:00)
[2016-05-31] MEDS ORDERED: SODIUM CHLOR 0.9% 250 ML INJ 250 ML IV PRN (17:15)
[2016-05-31] MEDS ORDERED: oxyCODONE/ACETAMINOPHEN 5 MG/325 MG TAB PO PRN ×2 (17:15)
[2016-05-31] MEDS ORDERED: BACITRACIN OINT 0.9 GM PKT TOP ONE (17:15)
[2016-05-31] MEDS ORDERED: LORazepam 2 MG/ML VIAL IV PRN (17:15)
[2016-05-31] MEDS ORDERED: METOCLOPRAMIDE HCL 10 MG/2 ML VIAL IV PRN (17:15)
[2016-05-31] MEDS ORDERED: ATROPINE SULFATE 1 MG/ML VIAL IV PRN (17:15)
[2016-05-31] MEDS ORDERED: ONDANSETRON HCL 4 MG/2 ML VIAL IV PRN (17:15)
[2016-05-31] MEDS ORDERED: LIDOCAINE HCL 1% 50 ML VIAL INFIL PRN (17:15)
[2016-05-31] MEDS ORDERED: AMLO5 PO (18:48)
[2016-05-31] MEDS ORDERED: BUPR150CR PO (18:48)
[2016-05-31] MEDS ORDERED: PLAV75TA29 PO (18:48)
[2016-05-31] MEDS ORDERED: LIPI10TA PO (18:48)
[2016-05-31] MEDS ORDERED: Aspirin Chew CHEW (18:48)
[2016-05-31] MEDS ORDERED: ACETAMINOPHEN 325 MG TAB PO PRN (19:00)
[2016-05-31] MEDS ORDERED: ACET325T PO (19:08)
--- NOTE | 2016-05-31 19:29 | HHI.DCPOC ---
Discharge Care Plan Diagnosis: (1) NSTEMI (non-ST elevated myocardial infarction) (2) Syncope (3) Tobacco use disorder (4) Diastolic dysfunction Goals to Promote Your Health * To prevent worsening of your condition and complications follow up with your primary care doctor in 1 week and cardiology in 1 week * To maintain your health at the optimal level attend cardiac rehab and take all medications as prescribed. Directions to Meet Your Goals Take your medications as prescribed Follow your dietary instruction Follow activity as directed Keep your appointments as scheduled Take your immunizations and boosters as scheduled If your symptoms worsen call your PCP, if no PCP go to Urgent Care Center or Emergency Room Smoking is Dangerous to Your Health. Avoid second hand smoke Call the 24-hour hour crisis hotline for domestic abuse at Karley Ibarra MD R1 May 31, 2016 19:29 Mandi Garcia MD June 06, 2016 09:58
--- NOTE | 2016-05-31 20:18 | HHI.DS ---
Karley Ibarra MD R1 05/31/16 2018: Discharge Summary Admission Date May 29, 2016 at 02:02 Discharge Date: May 31, 2016 Admitting Diagnosis NSTEMI (1) NSTEMI (non-ST elevated myocardial infarction) Diagnosis: Principal Plan: - Aspirin 81 mg daily, indefinitely - Plavix 75 mg daily, continue for 1 year (05/2017) - High dose statin, Atorvastatin 80mg HS daily for plaque stabilization - Amlodipine 5mg PO daily - Beta-omar contraindicated secondary to bradycardia - Tobacco cessation Labs/Imaging - Troponins 0.34 -> 16.5 -> 23.7 - EKG: ST depressions in contiguous lateral leads. Serial EKG's improving. ST elevation in V1 and aVR. T wave inversion in aVL. - ECHO- EF 50-55%. No Taktsubo cardiomyopathySuggests grade I diastolic dysfunction with constricted LV and possible hypokinesis anteroseptal myocardium - EP: verbally reported within normally limits, report pending - Lipid Panel: T. chol 185/ LDL 82/ HDL 62/ TG 199. ASCVD risk: 8.4% (2) Syncope Diagnosis: Principal Plan: Likely secondary to vasospasm and NSTEMI, as EP study wnl (3) COPD (chronic obstructive pulmonary disease) with emphysema Diagnosis: Secondary Plan: CTA with emphysematous changes, Smoking cessation, Wellbutrin SR 150mg daily (4) Post menopausal problems Diagnosis: Secondary Plan: Stop estradiol 2mg secondary to increased risk of DVT while smoking (5) Left lumbar radiculopathy Diagnosis: Secondary Plan: Continue home gabapentin 600mg TID (6) Mechanical low back pain Diagnosis: Secondary Plan: Discontinue home ibuprofen 600mg daily due to increased risk of CA with NSAIDs, Use Tylenol 650mg q4h PRN pain 5-10 Consultants Cardiology (Dr Cha, Dr Bell) Procedures 05/31/16: Electrophysiology Study (Dr. Bell) Brief History 61 year old female with tobacco abuse presents to the ED with chest pain and syncope. Chest pain started about 4 hours ago. Onset was sudden, localized to the center of the chest, radiated to both arms but especially the left. It was associated with diaphoresis. She was sitting in a chair at the time. She felt warmth going down her arms and a heavy feeling. She had syncope for a few seconds and her told her that her eyes rolled to the back of her head. She did not have convulsions, bite her tongue, or lose her stool or urine. She' s had one episode of syncope in the distant past that came on suddenly. She did not seek medical care at that time. After the event she felt sick to her stomach and vomited once. The pain was 8/10. She also had diaphoresis during the event. Currently chest pain is 4/10 and she is in no distress. She had cardiac catheterization and stress test 10 years ago according to patient. She describes a similar event that occurred at that time minus the syncope. She reports workup at that time was negative for heart issue. She has chronic pain in her shoulders that is different from the pain she had tonight. No heavy lifting recently. No GERD like symptoms. No abdominal pain. She takes estradiol for menopausal symptoms. CBC/BMP: 05/31/16 1250 05/31/16 0527 Significant Findings Laboratory Tests Test 05/28/16 05/29/16 05/29/16 05/29/16 23:59 03:30 06:05 09:20 White Blood Count 11.9 TH/MM3 (4.0-11.0) Neutrophils # (Auto) 7.8 TH/MM3 (1.8-7.7) Potassium Level 3.4 MEQ/L (3.5-5.1) Creatinine 1.06 MG/DL (0.50-1.00) Estimat Glomerular Filtration 53 ML/MIN (>89) Rate Random Glucose 121 MG/DL (74-106) Aspartate Amino Transf 14 U/L (15-37) (AST/SGOT) Troponin I 0.34 NG/ML 16.50 NG/ML (0.02-0.05) (0.02-0.05) D-Dimer Quantitative (PE/DVT) 1.63 MG/L FEU (0.00-0.50) HDL Cholesterol 65.7 MG/DL (40.0-60.0) Activated Partial 62.1 SEC 49.6 SEC Thromboplast Time (24.3-30.1) (24.3-30.1) Total Creatine Kinase 556 U/L (26-192) Creatine Kinase MB 52.4 NG/ML (0.5-3.6) Creatine Kinase MB % 9.4 % (0.0-4.0) Test 05/29/16 05/29/16 05/29/16 05/30/16 12:28 14:15 18:45 03:45 Total Creatine Kinase 706 U/L (26-192) Creatine Kinase MB 67.3 NG/ML (0.5-3.6) Creatine Kinase MB % 9.5 % (0.0-4.0) Troponin I 23.70 NG/ML (0.02-0.05) Triglycerides Level 199 MG/DL (42-150) HDL Cholesterol 62.8 MG/DL (40.0-60.0) Urine Benzodiazepines Screen POS (NEG) Activated Partial 48.7 SEC 46.4 SEC Thromboplast Time (24.3-30.1) (24.3-30.1) White Blood Count 11.6 TH/MM3 (4.0-11.0) Red Blood Count 3.98 MIL/MM3 (4.00-5.30) Estimat Glomerular Filtration 71 ML/MIN (>89) Rate Calcium Level 8.1 MG/DL (8.5-10.1) Lipase 66 U/L (73-393) Test 05/30/16 05/31/16 06:26 05:27 Activated Partial 45.1 SEC 30.2 SEC Thromboplast Time (24.3-30.1) (24.3-30.1) Potassium Level 3.3 MEQ/L (3.5-5.1) Estimat Glomerular Filtration 73 ML/MIN (>89) Rate Calcium Level 8.2 MG/DL (8.5-10.1) Imaging Last Impressions Carotid Artery Ultrasound 05/29/16 0000 Signed Impressions: Service Date/Time: Sunday, May 29, 2016 07:20 - CONCLUSION: No acute disease. Toni Maher MD CT Angiography 05/29/16 0000 Signed Impressions: Service Date/Time: Sunday, May 29, 2016 11:52 - CONCLUSION: 1. No pulmonary embolus. 2. Chronic emphysematous and interstitial disease in the upper lungs. Toni Maher MD Chest X-Ray 05/28/16 0000 Signed Impressions: Service Date/Time: Sunday, May 29, 2016 00:40 - CONCLUSION: No acute disease. Louie Tanner Jr., MD PE at Discharge GENERAL: Adult female, sitting up in bed, smiling, no acute distress SKIN: Warm and dry, no rashes HEENT: Pupils equal round and reactive to light. Minimally moist mucous membranes. Oropharynx non-erythematous. NECK: Thick neck with prominent submandibular glands. No JVD or lymphadenopathy. CARDIOVASCULAR: Regular rate and rhythm without murmurs or gallops.. Radial and posterior tibial pulses 2+. Capillary refill <2 sec. RESPIRATORY: Lungs clear to auscultation. Breath sounds equal bilaterally. No wheezes, rales, or rhonchi. GASTROINTESTINAL: Abdomen soft, non-tender, nondistended. +BS MUSCULOSKELETAL: No peripheral edema NEUROLOGICAL: Awake and alert. Motor and sensory function grossly within normal limits. Normal speech PSYCH: Appropriate affect and judgement. Hospital Course 61 year-old female with history of tobacco abuse admitted 05/29/16- 05/31/16 for treatment of NSTEMI and syncope. CA was presumed secondary to vasospasm after imaging and cardiac catheterization showed limited atherosclerotic disease. EKG on admission with ST depressions in lateral leads and serial troponin elevated to 23. Cardiac catheterization 05/30/16 revealed 10% disease of RCA and LAD and L main and L circumflex within normal limits. ECHO with EF 50 -55%, grade I diastolic dysfunction, no sign of Taktsubo cardiomyopathy. Carotid artery ultrasound and EP without acute disease. Workup for PE negative. Patient with Wells score of 3.0, D-dimer elevated to 1.63, CTA negative for PE. Patient discharged on aspirin, plavix, statin, and amlodipine. CCB started to protect against vasospasm. Beta-omar was not started as it was contraindicated for bradycardia. Wellbutrin started at discharge to help with tobacco cessation.Recommended stop ibuprofen and other NSAIDs because on increased risk of CA. Recommended stop estradiol secondary to increased risk of blood clots with cocurrent tobacco abuse. Follow up with primary care doctor in 1 week, [employer] in 1 week, and Cardiac Rehab in 1 week. Pt Condition on Discharge: Stable Discharge Disposition: Discharge Home Discharge Instructions DIET: Follow Instructions for: Heart Healthy Diet Activities you can perform: Regular-No Restrictions Activities to Avoid: Strenuous Activity Follow up Referrals: Cardiology - [address] Cha Physician - 1 Week New Orders: Cardiac Rehab - 1 Week New Medications: Acetaminophen (Acetaminophen) 325 Mg Tab 650 MG PO Q6H PRN PAIN SCALE 5 TO 10 #30 TAB Amlodipine (Norvasc) 5 Mg Tab 5 MG PO DAILY #30 TAB Atorvastatin (Lipitor) 10 Mg Tab 80 MG PO HS #30 TAB Bupropion HCl ER 12 HR (Wellbutrin SR 12 HR) 150 Mg Tab 150 MG PO DAILY #30 TAB Clopidogrel (Plavix) 75 Mg Tab 75 MG PO DAILY #30 TAB ([Aspirin Chew]) 81 MG CHEW 81 MG CHEW DAILY #30 TAB.CHEW Continued Medications: Gabapentin (Gabapentin) 600 Mg Tab 600 MG PO TID #90 Ref 0 TAB Discontinued Medications: Estradiol (Estradiol) 2 Mg Tab 2 MG PO DAILY Estrogen Supplements #30 Ref 10 TAB Ibuprofen (Ibuprofen) 600 Mg Tab 600 MG PO Q6H PRN PAIN SCALE 1 TO 2 #90 Ref 6 TAB Mandi Garcia MD 06/06/16 0958: Discharge Summary CBC/BMP: 05/31/16 1250 05/31/16 0527 Discharge Instructions Follow up Referrals: Cardiology - [address] Cha Physician - 1 Week New Orders: Cardiac Rehab - 1 Week New Medications: Acetaminophen (Acetaminophen) 325 Mg Tab 650 MG PO Q6H PRN PAIN SCALE 5 TO 10 #30 TAB Amlodipine (Norvasc) 5 Mg Tab 5 MG PO DAILY #30 TAB Atorvastatin (Lipitor) 10 Mg Tab 80 MG PO HS #30 TAB Bupropion HCl ER 12 HR (Wellbutrin SR 12 HR) 150 Mg Tab 150 MG PO DAILY #30 TAB Clopidogrel (Plavix) 75 Mg Tab 75 MG PO DAILY #30 TAB ([Aspirin Chew]) 81 MG CHEW 81 MG CHEW DAILY #30 TAB.CHEW Continued Medications: Gabapentin (Gabapentin) 600 Mg Tab 600 MG PO TID #90 Ref 0 TAB Discontinued Medications: Estradiol (Estradiol) 2 Mg Tab 2 MG PO DAILY Estrogen Supplements #30 Ref 10 TAB Ibuprofen (Ibuprofen) 600 Mg Tab 600 MG PO Q6H PRN PAIN SCALE 1 TO 2 #90 Ref 6 TAB Karley Ibarra MD R1 May 31, 2016 20:18 Mandi Garcia MD June 06, 2016 09:58
[2016-05-31] MEDS: ATORVASTATIN 10 MG TAB PO SCH (20:32)
[2016-06-01] MEDS ORDERED: buPROPion HCL 150 MG SUSTAINED RELEASE TAB PO SCH (09:00)
--- NOTE | 2016-06-01 14:07 | MR ---
cc: YOLANDA MA M.D., RHONDA MD JENNINGS, LANE DATE: 05/31/2016 PROCEDURE Electrophysiology study, CS cannulation. INDICATION Mrs. Middleton is a 61-year-old female with a syncopal episode, referred for electrophysiology study. The risks, the nature and the benefit of the procedure were clearly stated to her. The risks include pneumothorax, cardiac perforation, stroke, need for open heart surgery and even . The patient understood and agreed to proceed. DETAILS OF PROCEDURE After written informed consent was obtained, the patient was brought to the EP lab where she was prepped and draped in the usual sterile fashion. Conscious sedation was initiated and maintained throughout the procedure by the anesthesiologist. Once sedation was verified, the right inguinal area was anesthetized with 2% Xylocaine. Using modified Seldinger technique, the right femoral vein was cannulated on four occasions and four guidewires were advanced. Over the wires a 3, 5 and a 6 Wallisian Hemaquet were advanced. Then under fluoroscopic guidance through the 5 and 6 Wallisian Hemaquet, four 5 Wallisian Leroy curved quadripolar electrophysiology catheters were advanced and positioned on the His, upper right atrium, coronary sinus and right ventricular apex. Basic intervals were measured. They were within normal limits. At this point atrial pacing protocol was performed. Atrial pacing protocol consisted of incremental atrial pacing as well as programmed stimulation with 110 cycle length and up to one extrastimuli delivered. No tachyarrhythmia was induced. Pacing from the coronary sinus showed no pre-excitation. Then ventricular pacing protocol was performed. Ventricular pacing protocol consisted of incremental ventricular pacing as well as programmed stimulation with 110 cycle length and up to three extrastimuli delivered. No tachyarrhythmia was induced. I was going to initiate Isuprel but at that time the heart rate was around 105 beats per minute. I decided not to initiate Isuprel. Atrial pacing protocol was repeated again and no tachyarrhythmia was induced. At that point the procedure was complete. Sinus recovery time normal. Conduction normal. No tachyarrhythmia. All catheters and Hemaquets were removed. The patient is going to be transferred to the recovery room. No incident report. The patient tolerated the procedure. Blood loss minimal. FINDINGS 1. Electrocardiogram: At baseline the patient was in sinus. Post-procedure electrocardiogram was unchanged. 2. Basic intervals: Basic cycle length was around 960 milliseconds, AH at 90 and HV around 62 milliseconds. 3. Atrial pacing protocol: No tachyarrhythmia was induced. Wenckebach of the node was around 360 milliseconds. ERP of the node was 600, 300 milliseconds. No tachyarrhythmia was induced. 4. Ventricular pacing protocol. There was VA conduction. No tachyarrhythmia was induced. CONCLUSION Negative electrophysiology study for supraventricular tachycardia. Good AV bart conduction. COMMENT/RECOMMENDATION The patient is going to be transferred to the recovery room. There is no need at this point for loop recorder or any device inserted. This is her first syncopal episode. At that point my recommendation is observation. If necessary, and if the patient has a new episode, then loop recorder will be considered. Yolanda Ma MD HS/BT /5:15 PM /1:56 PM
[2016-06-24] MEDS ORDERED: AMLO5 PO (17:00)
[2016-06-28] MEDS ORDERED: AMLO5 PO (12:19)
[2016-06-28] MEDS ORDERED: BUPR150CR PO (12:25)
[2016-06-28] MEDS ORDERED: PLAV75TA29 PO (12:25)
[2016-06-28] MEDS ORDERED: LIPI10TA PO (12:25)
== END 2016-05-31 20:47 | disposition home or self-care (01) | DRG 282 ==
LOC: NEPD 23:48 → NEDA 05-29 02:02 → NEDH 05-29 06:26 → HCIN 05-29 12:23
PROVIDERS: ADMIT Family Medicine; ATTEND Family Medicine
PROC: 4A023N7 Measurement of Cardiac Sampling and Pressure, Left Heart, Percutaneous Approach (ICD-10-PCS; 2016-05-29)
PROC: B2111ZZ Fluoroscopy of Multiple Coronary Arteries using Low Osmolar Contrast (ICD-10-PCS; principal; 2016-05-29 11:00)
PROC: 4A0234Z Measurement of Cardiac Electrical Activity, Percutaneous Approach (ICD-10-PCS; 2016-05-31)
DX: I21.4 Non-ST elevation (NSTEMI) myocardial infarction (principal); I25.111 Atherosclerotic heart disease of native coronary artery with angina pectoris with documented spasm; R00.1 Bradycardia, unspecified; R55 Syncope and collapse; J44.9 Chronic obstructive pulmonary disease, unspecified; F17.210 Nicotine dependence, cigarettes, uncomplicated; G89.29 Other chronic pain; M54.16 Radiculopathy, lumbar region; N95.8 Other specified menopausal and perimenopausal disorders; E87.6 Hypokalemia
CPT/HCPCS: 71010; 71275; 80048; 80053; 80061; 80307; 80346; 82550; 82552; 83690; 83735; 84484; 85025; 85027; 85379; 85610; 85730; 93005; 93306; 93454; 93620; 93880; 96374; C1730; C1769; C1893; G0480; J1644; J1650; J2250; J2270; J2405; J3010; J7030; Q9967

== ENCOUNTER 2017-03-23 16:06 | Emergency (ER) | payer OTHER ==
[~2017-03-23] VITALS: Ht 165.1 cm; Wt 70.9 kg
[~2017-03-23 16:06] MED LIST changes: +AMLO5 PO; +Aspirin Chew CHEW; -ESTR2TAB PO; -GABA600T PO; +GABA800T PO; -IBUP-232 PO; -KERASAL; +LIPI10TA PO; +MAPA325T PO; +PLAV75TA29 PO; -[UNRECOGNIZED DRUG - CODE] PO; -[UNRECOGNIZED DRUG - OTHER]; -[UNRECOGNIZED DRUG - REMARK]
[2017-03-23 16:10] VITALS: BP 124/62; PULSE 67; RESP 14; TEMP 99.4; O2SAT 97
--- NOTE | 2017-03-23 18:43 | PD ---
HPI Chief Complaint: GI Complaint Time Seen by Provider: 18:38 Travel History International Travel<30 days: No Contact w/Intl Traveler<30days: No Traveled to known affect area: No History of Present Illness HPI 62-year-old female patient with history of recent visit to an urgent care last week, was diagnosed with "gallbladder issues", presents to the ER today for intermittent right upper quadrant abdominal pain and intermittent nausea without vomiting. She states that he gets triggered with certain foods. She denies any fevers or any other issues. Modifying Factors: None Associated Signs & Symptoms: Intermittent right upper quadrant abdominal pain, nausea Risk Factors: None PFSH Past Medical History Arthritis: Yes Autoimmune Disease: No Blood Disorders: No Heart Rhythm Problems: No Cancer: Yes (skin under eye) Cardiovascular Problems: Yes High Cholesterol: No Chemotherapy: No Chest Pain: Yes Congestive Heart Failure: No Diabetes: No Diminished Hearing: No Endocrine: No Genitourinary: No Hypertension: No Immune Disorder: No Musculoskeletal: Yes Neurologic: No Psychiatric: No Respiratory: No Myocardial Infarction: Yes (X 2) Radiation Therapy: No Thyroid Disease: Yes (HYPERTHYROID IN PAST) : 2 Para: 1 Miscarriage: 1 Past Surgical History Abdominal Surgery: No AICD: No Cardiac Surgery: No Ear Surgery: No Endocrine Surgery: No Eye Surgery: No Genitourinary Surgery: No Gynecologic Surgery: Yes (hysterectomy) Hysterectomy: Yes Oral Surgery: No Pacemaker: No Thoracic Surgery: No Other Surgery: Yes (skin cancer removal and hysterectomy) Social History Alcohol Use: No Tobacco Use: Yes (1/2 PPD) Substance Use: No Allergies-Medications (Allergen,Severity, Reaction): Coded Allergies: No Known Allergies (Unverified Adverse Reaction, Unknown, 01/24/17) Reported Meds & Prescriptions Reported Meds & Active Scripts Active Gabapentin 800 Mg Tab 800 Mg PO TID Mapap (Acetaminophen) 325 Mg Tab 325 Mg PO Q4-6H PRN Plavix (Clopidogrel Bisulfate) 75 Mg Tab 75 Mg PO DAILY Lipitor (Atorvastatin Calcium) 10 Mg Tab 80 Mg PO HS Norvasc (Amlodipine Besylate) 5 Mg Tab 5 Mg PO DAILY [Aspirin Chew] 81 MG Chew 81 Mg CHEW DAILY Review of Systems Except as stated in HPI: all other systems reviewed are Neg Physical Exam Narrative GENERAL: Well-developed elderly white female patient currently in no acute distress. Awake and oriented 3. SKIN: Focused skin assessment warm/dry. HEAD: Atraumatic. Normocephalic. EYES: Pupils equal and round. No scleral icterus. No injection or drainage. ENT: No nasal bleeding or discharge. Mucous membranes pink and moist. NECK: Trachea midline. No JVD. CARDIOVASCULAR: Regular rate and rhythm. No murmur appreciated. RESPIRATORY: No accessory muscle use. Clear to auscultation. Breath sounds equal bilaterally. GASTROINTESTINAL: Abdomen soft, non-tender, nondistended. Hepatic and splenic margins not palpable. MUSCULOSKELETAL: No obvious deformities. No clubbing. No cyanosis. No edema. NEUROLOGICAL: Awake and alert. No obvious cranial nerve deficits. Motor grossly within normal limits. Normal speech. PSYCHIATRIC: Appropriate mood and affect; insight and judgment normal. Data Data Last Documented VS Vital Signs Date Time Temp Pulse Resp B/P (MAP) Pulse Ox O2 Delivery O2 Flow Rate FiO2 03/23/17 18:54 66 18 160/67 (98) 99 Room Air 03/23/17 16:10 99.4 Orders Orders Complete Blood Count With Diff (03/23/17 18:38) Comprehensive Metabolic Panel (03/23/17 18:38) Lipase (03/23/17 18:38) Urinalysis - C+S If Indicated (03/23/17 18:38) Iv Access Insert/Monitor (03/23/17 18:38) Ecg Monitoring (03/23/17 18:38) Oximetry (03/23/17 18:38) Sodium Chloride 0.9% Flush (Ns Flush) (03/23/17 18:45) Us Abdomen Gallbladder (03/23/17 18:38) Labs Laboratory Tests Test 03/23/17 18:40 03/23/17 18:43 [facility] Medical Decision Making Medical Screen Exam Complete: Yes Emergency Medical Condition: Yes Medical Record Reviewed: Yes Differential Diagnosis Colitis versus cholecystitis versus gastroenteritis versus renal colic Narrative Course Lab work was initiated on patient and ultrasound was ordered for further evaluation. Patient is currently pain-free in the abdomen. Physician Communication Physician Communication Case is signed out at [address] Chatman pending lab work. Diagnosis Primary Impression: Abdominal pain Condition: Stable Ene Su MD Mar 23, 2017 18:43
[2017-03-23] MEDS ORDERED: SODIUM CHLORIDE 0.9% FLUSH 10 ML FLUSH IV FLUSH PRN (18:45)
[2017-03-23 18:54] VITALS: BP 160/67; PULSE 66; RESP 18; O2SAT 99
[2017-03-23 19:29] LABS: AUTOMATED NEUTROPHIL # 7.9 TH/MM3 (1.8-7.7); BASOPHIL # 0.1 TH/MM3 (0-0.2); BASOPHIL % 0.8 % (0.0-2.0); EOSINOPHIL # 0.1 TH/MM3 (0-0.4); HEMATOCRIT 43.9 % (35.0-46.0); HEMOGLOBIN 15.2 GM/DL (11.6-15.3); LYMPH % 26.8 % (9.0-44.0); LYMPHOCYTE # 3.2 TH/MM3 (1.0-4.8); MEAN CORPUSCULAR HEMOGLOBIN 31.2 PG (27.0-34.0); MEAN CORPUSCULAR HGB CONC 34.6 % (32.0-36.0); MEAN PLATELET VOLUME 7.6 FL (7.0-11.0); MONO % 4.8 % (0.0-8.0); MONOCYTE # 0.6 TH/MM3 (0-0.9); NEUT % 66.6 % (16.0-70.0); PLATELET COUNT 347 TH/MM3 (150-450); RED BLOOD COUNT 4.88 MIL/MM3 (4.00-5.30); RED CELL DISTRIBUTION WIDTH 13.5 % (11.6-17.2); WHITE BLOOD COUNT 11.8 TH/MM3 (4.0-11.0)
[2017-03-23 19:30] LABS: BACTERIA, URINE MOD /hpf; BILIRUBIN, URINE NEG (NEG); BLOOD, URINE MOD (NEG); GLUCOSE,URINE NEG (NEG); KETONE, URINE NEG (NEG); MUCUS URINE FEW /lpf (OCC); NITRITE,URINE NEG (NEG); PH, URINE 5.5 (5.0-8.5); SQUAMOUS EPITHELIAL CELL URINE 17 /hpf (0-5); URINE COLOR YELLOW (YELLW/STRAW); URINE LEUKOCYTE ESTERASE MOD (NEG)
[2017-03-23 19:38] LABS: ALBUMIN 4.4 GM/DL (3.4-5.0); AST (GOT) 14 U/L (15-37); BICARBONATE 27.2 MEQ/L (21.0-32.0); BLOOD UREA NITROGEN 9 MG/DL (7-18); CALCIUM 9.6 MG/DL (8.5-10.1); CHLORIDE 99 MEQ/L (98-107); CREATININE 0.99 MG/DL (0.50-1.00); GLOMERULAR FILTRATION RATE 57 ML/MIN (>89); GLUCOSE,RANDOM 110 MG/DL (74-106); SODIUM (NA) 135 MEQ/L (136-145)
[2017-03-23 19:39] LABS: ALT (GPT) 20 U/L (10-53)
[2017-03-23 19:42] LABS: ALKALINE PHOSPHATASE 86 U/L (45-117); TOTAL BILIRUBIN ADULT 0.5 MG/DL (0.2-1.0); TOTAL PROTEIN 8.1 GM/DL (6.4-8.2)
--- NOTE | 2017-03-23 19:43 | RADRPT ---
EXAM DATE/TIME: 03/23/2017 18:58 [facility] COMPARISON: No previous studies available for comparison. INDICATIONS : Right upper quadrant pain and nausea. MEDICAL HISTORY : Myocardial infarction. . Hyperthyroidism. Syncope. Arthritis. Skin cancer. Measles. SURGICAL HISTORY : Hysterectomy. Skin cancer removal. ENCOUNTER: Initial ACUITY: 2 weeks PAIN SCORE: 3/10 LOCATION: Right upper quadrant MEASUREMENTS: LIVER: 15.2 cm length COMMON DUCT: 6 mm RIGHT KIDNEY: 11.2 x 4.8 x 4.3 cm FINDINGS: Multiple gallstones. No gallbladder wall thickening. No significant abnormality in the liver, pancrea s. Common bile duct normal caliber. Right kidney measures 11.3 cm in length with 2 cm cyst lower pole . Other smaller cysts present on the right. CONCLUSION: 1. Multiple gallstones without gallbladder wall thickening or biliary ductal dilatation. Alvaro Kim MD on March 23, 2017 at 19:38 Board Certified Radiologist. This report was verified electronically.
[2017-03-23] MEDS ORDERED: LEVOFLOXACIN 750 MG TAB PO ONE (21:15)
[2017-03-23] MEDS ORDERED: CIPR-9 PO (21:22)
[2017-03-23] MEDS ORDERED: TRAM50TA PO (21:22)
--- NOTE | 2017-03-23 21:22 | PD ---
Physical Exam Date Seen by Provider: Mar 23, 2017 Time Seen by Provider: 20:00 Narrative pt GB SONO shows stones without cholecystitis and labs LFTs aare normal and pt given cipro for UTI and will discharge with Cipro for 7 days and outpt surgery follow for elective surgery , UTI will be trated and d/c close F/U she has a PCP she can follow with tomorrow Data Data Last Documented VS Vital Signs Date Time Temp Pulse Resp B/P (MAP) Pulse Ox O2 Delivery O2 Flow Rate FiO2 03/23/17 21:35 80 16 145/77 (99) 100 03/23/17 18:54 Room Air 03/23/17 16:10 99.4 Orders Orders Complete Blood Count With Diff (03/23/17 18:38) Comprehensive Metabolic Panel (03/23/17 18:38) Lipase (03/23/17 18:38) Urinalysis - C+S If Indicated (03/23/17 18:38) Iv Access Insert/Monitor (03/23/17 18:38) Ecg Monitoring (03/23/17 18:38) Oximetry (03/23/17 18:38) Sodium Chloride 0.9% Flush (Ns Flush) (03/23/17 18:45) Us Abdomen Gallbladder (03/23/17 18:38) Urine Culture (03/23/17 18:43) Levofloxacin (Levaquin) (03/23/17 21:15) Ed Discharge Order (03/23/17 21:17) Labs Laboratory Tests Test 03/23/17 18:40 03/23/17 18:43 White Blood Count 11.8 TH/MM3 Red Blood Count 4.88 MIL/MM3 Hemoglobin 15.2 GM/DL Hematocrit 43.9 % Mean Corpuscular Volume 90.0 FL Mean Corpuscular Hemoglobin 31.2 PG Mean Corpuscular Hemoglobin Concent 34.6 % Red Cell Distribution Width 13.5 % Platelet Count 347 TH/MM3 Mean Platelet Volume 7.6 FL Neutrophils (%) (Auto) 66.6 % Lymphocytes (%) (Auto) 26.8 % Monocytes (%) (Auto) 4.8 % Eosinophils (%) (Auto) 1.0 % Basophils (%) (Auto) 0.8 % Neutrophils # (Auto) 7.9 TH/MM3 Lymphocytes # (Auto) 3.2 TH/MM3 Monocytes # (Auto) 0.6 TH/MM3 Eosinophils # (Auto) 0.1 TH/MM3 Basophils # (Auto) 0.1 TH/MM3 CBC Comment DIFF FINAL Differential Comment Blood Urea Nitrogen 9 MG/DL Creatinine 0.99 MG/DL Random Glucose 110 MG/DL Total Protein 8.1 GM/DL Albumin 4.4 GM/DL Calcium Level 9.6 MG/DL Alkaline Phosphatase 86 U/L Aspartate Amino Transf (AST/SGOT) 14 U/L Alanine Aminotransferase (ALT/SGPT) 20 U/L Total Bilirubin 0.5 MG/DL Sodium Level 135 MEQ/L Potassium Level 4.1 MEQ/L Chloride Level 99 MEQ/L Carbon Dioxide Level 27.2 MEQ/L Anion Gap 9 MEQ/L Estimat Glomerular Filtration Rate 57 ML/MIN Lipase 102 U/L Urine Color YELLOW Urine Turbidity HAZY Urine pH 5.5 Urine Specific Hathaway 1.013 Urine Protein TRACE mg/dL Urine Glucose (UA) NEG mg/dL Urine Ketones NEG mg/dL Urine Occult Blood MOD Urine Nitrite NEG Urine Bilirubin NEG Urine Urobilinogen LESS THAN 2.0 MG/DL Urine Leukocyte Esterase MOD Urine RBC 15 /hpf Urine WBC 19 /hpf Urine Squamous Epithelial Cells 17 /hpf Urine Bacteria MOD /hpf Urine Mucus FEW /lpf Microscopic Urinalysis Comment CULTURE INDICATED MDM Medical Record Reviewed: Yes Supervised Visit with LATASHA: No Diagnosis Primary Impression: Abdominal pain Additional Impression: Gallstones Patient Instructions: Gallstones (ED), General Instructions Scripts Tramadol (Tramadol) 50 Mg Tab 50 MG PO Q6H Y for PAIN, #12 TAB 0 Refills Prov: Joel Chatman MD 03/23/17 Ciprofloxacin (Cipro) 500 Mg Tab 500 MG PO BID for Infection, #14 TAB 0 Refills Prov: Joel Chatman MD 03/23/17 Disposition: 01 DISCHARGE HOME Condition: Good Joel Chatman MD Mar 23, 2017 21:22
[2017-03-23 21:35] VITALS: BP 145/77
== END 2017-03-23 21:36 | disposition home or self-care (01) ==
LOC: NEPC 16:06
DX: R10.11 Right upper quadrant pain (principal); K80.20 Calculus of gallbladder without cholecystitis without obstruction; Z72.0 Tobacco use
CPT/HCPCS: 76705; 80053; 81001; 83690; 85025; 87086; 99284

== ENCOUNTER 2017-08-14 12:05 | Inpatient (IN) ==
[2017-08-14 13:18] LABS: Baso # (Auto) 0.1 th/mm3 (0.0-0.2); Baso % (Auto) 0.4 % (0.0-2.0); Eos % (Auto) 0.1 % (0.0-4.0); Hematocrit 40.3 % (35.0-46.0); Hemoglobin 13.7 gm/dL (11.6-15.3); Lymph # (Auto) 1.5 th/mm3 (1.0-4.8); Lymph % (Auto) 7.7 % (9.0-44.0); Mean Corpuscular Hemoglobin 30.2 pg (27.0-34.0); Mean Corpuscular Volume 88.9 fL (80.0-100.0); Mean Platelet Volume 7.6 fL (7.0-11.0); Mono # (Auto) 1.3 th/mm3 (0.0-0.9); Neut # (Auto) 16.3 th/mm3 (1.8-7.7); Neut % (Auto) 84.8 % (16.0-70.0); Platelet Count 304 th/mm3 (150-450); Red Blood Count 4.53 mil/mm3 (4.00-5.30); Red Cell Distribution Width 14.1 % (11.6-17.2); White Blood Count 19.2 th/mm3 (4.0-11.0)
[2017-08-14 13:38] LABS: Alanine Aminotransferase 15 U/L (10-53); Albumin 3.4 g/dL (3.4-5.0); Anion Gap 9 meq/L (5-15); Aspartate Aminotransferase 11 U/L (15-37); Blood Urea Nitrogen 14 mg/dL (7-18); Carbon Dioxide 27.8 meq/L (21.0-32.0); Chloride 99 meq/L (98-107); Glomerular Filtration Rate 62 mL/min (>89); Glucose,Random 122 mg/dL (74-106); Lipase 50 U/L (73-393); Potassium 3.6 meq/L (3.5-5.1); Sodium 136 meq/L (136-145)
[2017-08-14 13:39] LABS: Alkaline Phosphatase 78 U/L (45-117); Total Protein 7.3 g/dL (6.4-8.2)
[2017-08-14] MEDS ORDERED: Morphine Inj 4 MG/ML Vial IV.PUSH ONE (14:13)
[2017-08-14] MEDS ORDERED: Sodium Chlor 0.9% Inj 500 ML IV.SIG ONE (14:13)
[2017-08-14] MEDS ORDERED: Diatrizoate Meglum/Diatrizoate Sod Liq 9 ML UDC ONE (14:29)
--- NOTE | 2017-08-14 17:52 | CT ---
EXAM DATE: 08/14/2017 5:38 PM EDT AGE/SEX: 62 years / Female INDICATIONS: Abdominal pain. CLINICAL DATA: This is the patient's initial encounter. Patient reports that signs and symptoms have been present for 1 day and indicates a pain score of 2/10. MEDICAL/SURGICAL HISTORY: . Sciatica, skin cancer, myocardial infarction. Cholecystectomy. Hy sterectomy. ORAL CONTRAST: Prescribed oral contrast ingested. RADIATION DOSE: 6.64 CTDI (mGy) COMPARISON: [facility], CT ABDOMEN & PELVIS W CONTRAST, 08/12/2017. . TECHNIQUE: Multiple contiguous axial images were obtained through the abdomen and pelvis following b olus infusion of 95 ml Omnipaque 350 (iohexol) nonionic water-soluble contrast as a single exam dos e. Prescribed oral contrast ingested. Using automated exposure control and adjustment of the mA and/ or kV according to patient size, radiation dose was kept as low as reasonably achievable to obtain op timal diagnostic quality images. DICOM format image data is available electronically for review and comparison. FINDINGS: A small right-sided effusion is present. There is subsegmental atelectasis in the both bases. The chepe er and spleen are normal in size and no focal defects are identified. The gallbladder is absent in t his patient who is status post cholecystectomy one week with a 6.7 x 2.6 cm fluid collection in the g allbladder fossa which may reflect postoperative change or biloma. There is fluid over the right lobe of the liver measuring maximally 2 cm in thickness which also may reflect bile. There is a 6 cm x 3. 4 center collection posterior to the greater curvature of the stomach is well. The adrenal glands are unremarkable. There are simple renal cysts bilaterally the largest measuring 1.5 cm on the left. Examination of the pelvis demonstrates no evidence of free fluid or pelvic mass. No abnormally enlarg ed inguinal or retroperitoneal lymph nodes are present. The bladder is unremarkable. There is diverti culosis without evidence of diverticulitis. CONCLUSION: Fluid within the gallbladder fossa and over the right lobe of liver which may reflect bile leak. Bili gianna scanning could be performed to further evaluate this if clinically indicated Small right effusion and bibasilar atelectasis. Fluid posterior to the stomach potentially in the lesser sac as above. Electronically signed by: Izaiah Cheung MD 08/14/2017 5:51 PM EDT
[2017-08-14 19:08] LABS: Bilirubin,Urine Negative (Negative); Clarity,Urine Clear (Clear); Color,Urine Yellow (Yellw/Straw); Glucose,Urine (UA) Negative (Negative); Leukocyte Esterase,Urine Negative (Negative); Mucus,Urine Few /lpf (Occasional); Nitrite,Urine Negative (Negative)
--- NOTE | 2017-08-14 20:39 | MH ---
cc: Tiago Ceballos MD DATE OF ADMISSION: 08/14/2017 DATE OF ADMISSION: 08/14/2017 ADMISSION DIAGNOSIS:. Abdominal pain. HISTORY OF PRESENT ILLNESS: The patient is a 62-year-old woman who underwent laparoscopic cholecystectomy without complication 10 days ago. She was fine until 3 days ago, when she began having abdominal pain of a mild nature on the seventh postop day, which progressed to the next day to the point where she came to the emergency room for evaluation. She was found to have a small amount of fluid in the liver bed and an elevated white blood count. She was placed on antibiotics and sent home. She initially felt better over the next 24 hours until her dog jumped on her abdomen yesterday evening, causing increased pain, which increased considerably during the next 12-18 hours. She was seen in my office this morning with significant abdominal pain, with mild nausea, but no emesis and no fever at home. She is admitted at this time for further evaluation. PAST MEDICAL HISTORY, FAMILY HISTORY, SOCIAL HISTORY AND REVIEW OF SYSTEMS: Well documented in her previous chart. PHYSICAL EXAMINATION: VITAL SIGNS: Normal. HEENT: Unremarkable. No lesions, inflammation or scleral icterus. NECK: Supple. No adenopathy or thyromegaly. CHEST: Symmetrical, with slightly diminished breath sounds at both bases, with no rales, rhonchi or wheezes. CARDIOVASCULAR: Heart has no murmurs or gallops. ABDOMEN: Soft, but tender throughout, mainly in the upper abdomen, with mild voluntary guarding. No involuntary guarding or rebound. EXTREMITIES AND NEUROLOGIC: Grossly intact. LABORATORY DATA: White blood count is 19,200, hemoglobin 13.7, BUN was 14, creatinine 0.91. Electrolytes were normal. Total bilirubin 0.9, AST was 11.1, ALT 15, alkaline phosphatase 78, lipase was 50. IMAGING: CT scan showed a small amount of fluid in the liver bed, with a small to moderate amount of fluid over the right lobe of the liver. I discussed the situation with radiology and they felt there was not enough fluid to be able to percutaneously drain. There was no evidence of any other problems other than the fluid itself. In particular, there was no evidence of inflammatory response. IMPRESSION: Abdominal pain, status post laparoscopic cholecystectomy, with possibility of a bile leak. PLAN: The patient will be admitted and placed on intravenous antibiotics, as well as analgesics. A HIDA scan will be ordered for tomorrow. Continued observation is necessary. MD BRYSON Fallon/MARLENY , 07:23 PM , 08:38 PM
[2017-08-14] MEDS: Levofloxacin 500 mg Premix Inj 500 MG/100 ML PIGGYBACK IV.SIG SCH (21:37)
[2017-08-14] MEDS: Morphine Inj 4 MG/ML Vial IV.PUSH PRN (22:23)
[2017-08-15] MEDS: Morphine Inj 4 MG/ML Vial IV.PUSH PRN ×3 (06:46→23:00)
--- NOTE | 2017-08-15 07:19 | ED ---
HPI General Chief complaint: Medical Clearance Stated complaint: Phy Sent/ Pain Time Seen by Provider: 08/14/17 12:46 History of Present Illness HPI narrative: This is a 62 old female who status post cholecystectomy, presents here at the request of her surgeon for evaluation of abdominal pain. According to her surgeon, she had complicated anatomy which required a large amount of exploration around her bile duct. The patient was seen 2 days ago for abdominal pain and at that time had an elevated white blood cell count with fluid in her pelvis. She started on oral antibiotics and discharged home. The patient returns with continued pain however it is worse. She reports that her dog jumped on her lap which caused her pain to be more severe. She denies any fevers, chills. She denies any diarrhea. She does report nausea and vomiting. She does also report decreased urine output. There is no drainage around her surgical site. Related Data Home Medications Medication Instructions Recorded Confirmed amlodipine 5 mg PO DAILY 08/12/17 08/14/17 aspirin 81 mg PO DAILY 08/12/17 08/14/17 atorvastatin 80 mg PO HS 08/12/17 08/14/17 estradiol 1 tab PO DAILY 08/12/17 08/14/17 gabapentin 300 mg PO TID 08/12/17 08/14/17 hyoscyamine sulfate [Levsin/SL] 0.125 mg SUBLINGUAL QID PRN 08/12/17 08/14/17 tramadol 50 mg PO Q6H PRN 08/12/17 08/14/17 Previous Rx's Medication Instructions Recorded ciprofloxacin HCl [Cipro] 500 mg PO Q12H #14 tab 08/12/17 hydrocodone-acetaminophen [Harrod] 1 tab PO Q6H PRN #12 tab 08/12/17 ondansetron HCl [Zofran] 4 mg PO Q6H PRN #12 tab 08/12/17 Allergies Allergy/AdvReac Type Severity Reaction Status Date / Time No Known Allergies Allergy Verified 08/14/17 12:55 Review of Systems Except as stated in HPI: all other systems reviewed are negative Constitutional Denies chills and Denies fever(s) Cardiovascular Denies chest pain and Denies diaphoresis Respiratory Denies chest congestion and Denies cough Gastrointestinal Reports abdominal pain, Reports nausea and Reports vomiting Genitourinary Denies urinary frequency, Denies dysuria and Reports other (Decreased urine output.) Musculoskeletal Denies back pain and Denies myalgias Integumentary/Breasts Denies erythema, Denies rash and Reports other Neurologic Denies headache(s) and Denies weakness Endocrine Denies fatigue and Denies polyuria PMFSH Medical History Medical History Degenerative disc disease (Acute) H/O: hysterectomy (Acute) Low back pain (Acute) Myocardial infarction (Acute) Sciatica (Acute) Skin cancer (Acute) Social History Social History Substance History: No History of Abuse Second Hand Smoke Exposure: Yes Smoking Status: Current every day smoker Tobacco Type: Cigarettes How Often Do You Have a Drink Containing Alcohol: Never Recent Travel in [facility] within the Last 8 Weeks: No Recent Out of Country Travel within the Last 8 Weeks: No Immunization History Tetanus Immunization: >5 Years Hx Influenza Vaccine This Season: Yes Exam Narrative Exam Narrative: GENERAL: Well-developed well-nourished female in no acute respiratory distress. SKIN: Focused skin assessment warm/dry. HEAD: Atraumatic. Normocephalic. EYES: No scleral icterus. No injection or drainage. ENT: Mucous membranes pink and moist. NECK: Trachea midline. No JVD. CARDIOVASCULAR: Regular rate and rhythm. No murmur appreciated. RESPIRATORY: No accessory muscle use. Clear to auscultation. Breath sounds equal bilaterally. GASTROINTESTINAL: Abdomen soft, nondistended. There is tenderness to palpation throughout all 4 quadrants. There is no rebound. On examination patient's trocar sites from her laparoscopic surgery, there is no evidence of drainage or redness. MUSCULOSKELETAL: No obvious deformities. No clubbing. No cyanosis. No edema. NEUROLOGICAL: Awake and alert. No obvious cranial nerve deficits. Motor grossly within normal limits. Normal speech. PSYCHIATRIC: Appropriate mood and affect; insight and judgment normal. Course Initial Documented Vital Signs Temperature 97.7 F 08/14/17 12:31 Pulse Rate 69 08/14/17 12:31 Respiratory Rate 17 08/14/17 12:31 Blood Pressure 142/62 H 08/14/17 12:31 Pulse Oximetry 91 L 08/14/17 12:31 Last Documented Vital Signs Temperature 97.8 F 08/15/17 07:40 Pulse Rate 74 08/15/17 07:40 Respiratory Rate 16 08/15/17 07:40 Blood Pressure 125/60 08/15/17 07:40 Pulse Oximetry 90 L 08/15/17 07:40 Medical Decision Making [facility] Narrative Medical decision making narrative: 62-year-old female presents today with complaints of abdominal pain. Patient has had a recent cholecystectomy. The surgery was complicated with difficult anatomy. The patient was seen 2 days prior and started on antibiotics after they found an elevated white blood cell count and small amount of fluid in her pelvis. Concern was for a bile leak. CT scan has been repeated. It again shows that there is still fluid in the pelvis. Question is whether this is an abscess or a bile leak. Patient is afebrile. Patient's white blood count 19,000. This is slightly down from 2 days prior. Case was discussed with Dr. Tiago Ceballos, patient's surgeon, who agrees to admit the patient to his service. Question is whether or not they will try to drain this fluid. Lab Data Result diagrams: 08/15/17 06:30 08/15/17 06:30 Lab Results 08/14/17 08/14/17 08/14/17 Range/Units 13:05 13:05 13:05 WBC 19.2 H (4.0-11.0) th/mm3 RBC 4.53 (4.00-5.30) mil/mm3 Hgb 13.7 (11.6-15.3) gm/dL Hct 40.3 (35.0-46.0) % MCV 88.9 (80.0-100.0) fL MCH 30.2 (27.0-34.0) pg MCHC 34.0 (32.0-36.0) % RDW 14.1 (11.6-17.2) % Plt Count 304 (150-450) th/mm3 MPV 7.6 (7.0-11.0) fL Neut % (Auto) 84.8 H (16.0-70.0) % Lymph % (Auto) 7.7 L (9.0-44.0) % [place] % (Auto) 7.0 (0.0-8.0) % Eos % (Auto) 0.1 (0.0-4.0) % Baso % (Auto) 0.4 (0.0-2.0) % Neut # (Auto) 16.3 H (1.8-7.7) th/mm3 Lymph # (Auto) 1.5 (1.0-4.8) th/mm3 [place] # (Auto) 1.3 H (0.0-0.9) th/mm3 Eos # (Auto) 0.0 (0.0-0.4) th/mm3 Baso # (Auto) 0.1 (0.0-0.2) th/mm3 WBC Differential . Differential Comment Auto diff final Sodium 136 (136-145) meq/L Potassium 3.6 (3.5-5.1) meq/L Chloride 99 (98-107) meq/L Carbon Dioxide 27.8 (21.0-32.0) meq/L Anion Gap 9 (5-15) meq/L BUN 14 (7-18) mg/dL Creatinine 0.91 (0.50-1.00) mg/dL Estimated GFR 62 L (>89) mL/min Random Glucose 122 H (74-106) mg/dL Lactic Acid 1.6 (0.4-2.0) mmol/L Calcium 9.0 (8.5-10.1) mg/dL Total Bilirubin 0.9 (0.2-1.0) mg/dL Direct Bilirubin (0.0-0.2) mg/dL Indirect Bilirubin (0.0-0.8) mg/dL AST 11 L (15-37) U/L ALT 15 (10-53) U/L Alkaline Phosphatase 78 (45-117) U/L Total Protein 7.3 D (6.4-8.2) g/dL Albumin 3.4 (3.4-5.0) g/dL Lipase 50 L (73-393) U/L Urine Color (Yellw/Straw) Urine Clarity (Clear) Urine pH (5.0-8.5) Ur Specific Gould (1.002-1.035) Urine Protein (Neg-Trace) mg/dL Urine Glucose (UA) (Negative) mg/dL Urine Ketones (Negative) mg/dL Urine Occult Blood (Negative) Urine Nitrate (Negative) Urine Bilirubin (Negative) Urine Urobilinogen (Less than 2) mg/dL Ur Leukocyte Esterase (Negative) Urine RBC (0-3) /hpf Urine WBC (0-5) /hpf Urine Mucus (Occasional) /lpf Micro UA Comment Urine Culture Comments 08/14/17 08/15/17 08/15/17 Range/Units 18:31 06:30 06:30 WBC 14.3 H (4.0-11.0) th/mm3 RBC 4.19 (4.00-5.30) mil/mm3 Hgb 12.4 (11.6-15.3) gm/dL Hct 37.3 (35.0-46.0) % MCV 89.0 (80.0-100.0) fL MCH 29.5 (27.0-34.0) pg MCHC 33.2 (32.0-36.0) % RDW 14.0 (11.6-17.2) % Plt Count 255 (150-450) th/mm3 MPV 7.9 (7.0-11.0) fL Neut % (Auto) 78.8 H (16.0-70.0) % Lymph % (Auto) 13.4 (9.0-44.0) % [place] % (Auto) 7.3 (0.0-8.0) % Eos % (Auto) 0.3 (0.0-4.0) % Baso % (Auto) 0.2 (0.0-2.0) % Neut # (Auto) 11.3 H (1.8-7.7) th/mm3 Lymph # (Auto) 1.9 (1.0-4.8) th/mm3 [place] # (Auto) 1.0 H (0.0-0.9) th/mm3 Eos # (Auto) 0.0 (0.0-0.4) th/mm3 Baso # (Auto) 0.0 (0.0-0.2) th/mm3 WBC Differential . Differential Comment Auto diff final Sodium 137 (136-145) meq/L Potassium 3.2 L (3.5-5.1) meq/L Chloride 100 (98-107) meq/L Carbon Dioxide 27.6 (21.0-32.0) meq/L Anion Gap 9 (5-15) meq/L BUN 7 (7-18) mg/dL Creatinine 0.66 (0.50-1.00) mg/dL Estimated GFR Greater than 89 (>89) mL/min Random Glucose 98 (74-106) mg/dL Lactic Acid (0.4-2.0) mmol/L Calcium 8.6 (8.5-10.1) mg/dL Total Bilirubin 0.8 (0.2-1.0) mg/dL Direct Bilirubin 0.3 H (0.0-0.2) mg/dL Indirect Bilirubin 0.5 (0.0-0.8) mg/dL AST 9 L (15-37) U/L ALT 13 (10-53) U/L Alkaline Phosphatase 74 (45-117) U/L Total Protein 6.5 D (6.4-8.2) g/dL Albumin 2.8 L D (3.4-5.0) g/dL Lipase (73-393) U/L Urine Color Yellow (Yellw/Straw) Urine Clarity Clear (Clear) Urine pH 6.0 (5.0-8.5) Ur Specific [place] Greater than 1.060 H (1.002-1.035) Urine Protein Negative (Neg-Trace) mg/dL Urine Glucose (UA) Negative (Negative) mg/dL Urine Ketones Negative (Negative) mg/dL Urine Occult Blood Large H (Negative) Urine Nitrate Negative (Negative) Urine Bilirubin Negative (Negative) Urine Urobilinogen Less than 2 (Less than 2) mg/dL Ur Leukocyte Esterase Negative (Negative) Urine RBC 16 H (0-3) /hpf Urine WBC 3 (0-5) /hpf Urine Mucus Few H (Occasional) /lpf Micro UA Comment Cath-culture not ind Urine Culture Comments Cath-cult not ind Imaging Data Radiologist's impression: ITS Impressions Abdomen/Pelvis CT 08/14/17 12:46 CONCLUSION: Fluid within the gallbladder fossa and over the right lobe of liver which may reflect bile leak. Biliary scanning could be performed to further evaluate this if clinically indicated Small right effusion and bibasilar atelectasis. Fluid posterior to the stomach potentially in the lesser sac as above. Discharge Plan Discharge Disposition Patient Disposition: 30 Still Patient Discharge Details Diagnosis: Abdominal pain, Leukocytosis, Hx of cholecystectomy Physicians Team ED Provider: Jeronimo Vasquez Primary Care Provider: Baljit Quezada Attending Provider: Tiago Ceballos Discharge Interventions Interventions: ED Discharge Assessment Last Done: 08/15/17 03:09 Vital Signs Last Done: 08/14/17 19:12 Status ED Status: Left Department Discharge Information Discharge Date/Time: 08/15/17 00:00
[2017-08-15 07:44] LABS: Baso % (Auto) 0.2 % (0.0-2.0); Eos % (Auto) 0.3 % (0.0-4.0); Hematocrit 37.3 % (35.0-46.0); Hemoglobin 12.4 gm/dL (11.6-15.3); Lymph # (Auto) 1.9 th/mm3 (1.0-4.8); Lymph % (Auto) 13.4 % (9.0-44.0); Mean Corpuscular HGB Conc 33.2 % (32.0-36.0); Mean Corpuscular Hemoglobin 29.5 pg (27.0-34.0); Mean Platelet Volume 7.9 fL (7.0-11.0); Mono % (Auto) 7.3 % (0.0-8.0); Neut # (Auto) 11.3 th/mm3 (1.8-7.7); Neut % (Auto) 78.8 % (16.0-70.0); Platelet Count 255 th/mm3 (150-450); Red Blood Count 4.19 mil/mm3 (4.00-5.30); White Blood Count 14.3 th/mm3 (4.0-11.0)
[2017-08-15 08:30] LABS: Alanine Aminotransferase 13 U/L (10-53); Albumin 2.8 g/dL (3.4-5.0); Alkaline Phosphatase 74 U/L (45-117); Anion Gap 9 meq/L (5-15); Aspartate Aminotransferase 9 U/L (15-37); Blood Urea Nitrogen 7 mg/dL (7-18); Calcium 8.6 mg/dL (8.5-10.1); Carbon Dioxide 27.6 meq/L (21.0-32.0); Chloride 100 meq/L (98-107); Glomerular Filtration Rate Greater Than 89 mL/min (>89); Glucose,Random 98 mg/dL (74-106); Potassium 3.2 meq/L (3.5-5.1); Sodium 137 meq/L (136-145); Total Protein 6.5 g/dL (6.4-8.2)
[2017-08-15] MEDS: Pantoprazole Inj 40 MG Vial IV.PUSH SCH (09:46)
[2017-08-15] MEDS ORDERED: Sincalide Inj 5 MCG Vial IV.PUSH ONE (13:21)
--- NOTE | 2017-08-15 14:29 | NM ---
EXAM DATE: 08/15/2017 2:20 PM EDT AGE/SEX: 62 years / Female INDICATIONS: Abdomen pain post cholecystectomy on 08/04/2017.Evaluate for bile leak. CLINICAL DATA: This is the patient's initial encounter. Patient reports that signs and symptoms have been present for 2 days and indicates a pain score of 0/10. MEDICAL/SURGICAL HISTORY: Hypertension. Cholecystectomy. Hysterectomy. COMPARISON: No prior exams available for comparison. DOSE: 4.2 mCi Tc-99m mebrofenin i.v. Medication: 1.31 mcg Cholecystokinin IV No symptomatic response Cholecystokinin was administered by slow infusion over 8 minutes beginning at 47 mins min utes. TECHNIQUE: Following the intravenous administration of radiotracer, dynamic sequential images were pe rformed with continuous acquisition. Time-activity curves were generated. FINDINGS: Hepatic Kinetics: There is prompt uptake of radiotracer in the liver. No focal defects are seen. Ther e is normal rate of washout from the hepatic parenchyma. There is reticulation of activity in the gal lbladder fossa characteristic of localized leak in the gallbladder fossa. Biliary Clearance: Activity is first seen in the extrahepatic biliary system at 40 minutes. There is normal excretion into the small bowel. Gallbladder: The gallbladder is surgically absent. Biliary-Enteric Reflux: None observed. CONCLUSION: 1. Findings of bile leak in the gallbladder fossa Electronically signed by: Izaiah Cheung MD 08/15/2017 2:28 PM EDT
--- NOTE | 2017-08-15 16:57 | P.CONGI ---
History of Present Illness Consult date: 08/15/17 Consult reason: Evaluate for ERCP, stent placement Chief complaint: Bile Leak, Abdominal Pain, Recent Cholecystectomy History of Present Illness: This is a 62-year-old female who was admitted to the hospital on 08/15/2017. Patient is status post cholecystectomy from 08/04/2017 and has noted right upper quadrant radiating to left upper quadrant abdominal pain for the past 4 days. Patient describes the pain as uncontrolled at times a 10 out of 10 and came to the emergency room 2 days ago for evaluation. Patient was treated but now has come back with recurring abdominal pain, nausea and vomiting. Patient states that she has been unable to eat or keep down any food for the past 3 days but denies any obvious bleeding or dysphasia or dyspepsia. Patient denies any diarrhea and states bowel movements 1-2 each week since her cholecystectomy.. Patient has had no previous EGD and last colonoscopy was 10 years or greater ago. No family history of colon cancer current labs showed WBC count 14.3, hemoglobin 12.4, bilirubin 0.8, and normal LFTs. HIDA scan performed today did show positive bowel leak and gallbladder fossa. Gastroenterology has been consulted to assist with ERCP and stent placement <Bailee Farr - Last Filed: 08/15/17 16:46> Review of Systems All other systems reviewed negative except as stated in HPI <Bailee Farr - Last Filed: 08/15/17 16:46> PMFSH - History History Provided By: Patient - Medical History Medical History: Medical History (Last Updated 08/12/17 @ 08:25 by Fannie Mancera) Degenerative disc disease H/O: hysterectomy Low back pain Myocardial infarction Sciatica Skin cancer - Surgical History Surgical History: Surgical History (Last Reviewed 08/15/17 @ 00:21 by Kelly Boswell RN) S/P cholecystectomy - Tobacco History Second Hand Smoke Exposure: Yes Tobacco Use In Past 30 Days: Yes Smoking Status: Current every day smoker Tobacco Type: Cigarettes - Alcohol History How Often Do You Have a Drink Containing Alcohol: Never - Substance Use History Substance History: No History of Abuse - Travel History Recent Travel in the [place] Within the Last 8 Weeks: No Recent Travel Out of the Country Within the Last 8 Weeks: No - Immunization History Tetanus Immunization: >5 Years Hx Influenza Vaccine This Season: Yes <Bailee Farr - Last Filed: 08/15/17 16:46> - Medical History Medical History: Medical History (Last Updated 08/12/17 @ 08:25 by Fannie Mancera) Degenerative disc disease H/O: hysterectomy Low back pain Myocardial infarction Sciatica Skin cancer - Surgical History Surgical History: Surgical History (Last Reviewed 08/15/17 @ 00:21 by Kelly Boswell RN) S/P cholecystectomy <Juhi Cedeno - Last Filed: 08/16/17 06:36> Medications and Allergies Active Medications: Active Medications Levofloxacin/Dextrose (Levaquin 500 Mg Premix Inj) 500 mg in 100 mls @ 100 mls/ hr IV.SIG Q24H [facility]IT[facility] Last Infusion: 08/15/17 00:00 Dose: Infused Metoclopramide HCl (Reglan Inj) 10 mg IV.PUSH Q6H PRN; Protocol PRN Reason: NAUSEA Morphine Sulfate (Morphine Inj) 2 mg IV.PUSH Q2H PRN PRN Reason: PAIN SCALE 1 TO 5 OR COUGHING Last Admin: 08/15/17 06:46 Dose: 2 mg Morphine Sulfate (Morphine Inj) 4 mg IV.PUSH Q2H PRN PRN Reason: PAIN 6-10;IF UNABLE TO TAKE PO Pantoprazole Sodium (Protonix Inj) 40 mg IV.PUSH DAILY [facility] Last Admin: 08/15/17 09:46 Dose: 40 mg Sodium Chloride (Ns Flush) 2 ml IV.FLUSH BID [facility] Last Admin: 08/15/17 09:47 Dose: 2 ml Sodium Chloride (Ns Flush) 2 ml IV.FLUSH PRN PRN PRN Reason: FLUSH AFTER USING IV ACCESS <Bailee Farr - Last Filed: 08/15/17 16:46> Active Medications: Active Medications Levofloxacin/Dextrose (Levaquin 500 Mg Premix Inj) 500 mg in 100 mls @ 100 mls/ hr IV.SIG Q24H [facility] Last Admin: 08/15/17 22:34 Dose: 100 mls/hr Potassium Chloride/Sodium Chloride (Potassium Chlor 20 Meq/Nacl 0.45% Inj) 1, 000 mls @ 175 mls/hr IV.CONT .Q5H43M [facility] Last Admin: 08/15/17 19:07 Dose: 175 mls/hr Metoclopramide HCl (Reglan Inj) 10 mg IV.PUSH Q6H PRN; Protocol PRN Reason: NAUSEA Morphine Sulfate (Morphine Inj) 2 mg IV.PUSH Q2H PRN PRN Reason: PAIN SCALE 1 TO 5 OR COUGHING Last Admin: 08/15/17 23:00 Dose: 2 mg Morphine Sulfate (Morphine Inj) 4 mg IV.PUSH Q2H PRN PRN Reason: PAIN 6-10;IF UNABLE TO TAKE PO Last Admin: 08/15/17 18:05 Dose: 4 mg Pantoprazole Sodium (Protonix Inj) 40 mg IV.PUSH DAILY [facility] Last Admin: 08/15/17 09:46 Dose: 40 mg Sodium Chloride (Ns Flush) 2 ml IV.FLUSH BID [facility] Last Admin: 08/15/17 22:34 Dose: 2 ml Sodium Chloride (Ns Flush) 2 ml IV.FLUSH PRN PRN PRN Reason: FLUSH AFTER USING IV ACCESS Last Admin: 08/15/17 18:05 Dose: 2 ml <Juhi Cedeno - Last Filed: 08/16/17 06:36> Allergies Allergy/AdvReac Type Severity Reaction Status Date / Time No Known Allergies Allergy Verified 08/14/17 12:55 Home Medications Medication Instructions Recorded Confirmed Type amlodipine 5 mg PO DAILY 08/12/17 08/14/17 History aspirin 81 mg PO DAILY 08/12/17 08/14/17 History atorvastatin 80 mg PO HS 08/12/17 08/14/17 History estradiol 1 tab PO DAILY 08/12/17 08/14/17 History gabapentin 300 mg PO TID 08/12/17 08/14/17 History hyoscyamine sulfate [Levsin/SL] 0.125 mg SUBLINGUAL QID PRN 08/12/17 08/14/17 History tramadol 50 mg PO Q6H PRN 08/12/17 08/14/17 History Exam Vital signs: Vital Signs 08/14/17 18:00 08/14/17 19:12 08/14/17 22:31 Temperature 98.3 F 98.4 F Pulse Rate 80 64 71 Respiratory Rate 16 18 18 Blood Pressure 128/60 112/54 L 140/64 Pulse Oximetry 99 97 94 L 08/15/17 00:00 08/15/17 04:00 08/15/17 05:22 Temperature 97.1 F L 97.6 F Pulse Rate 72 81 Respiratory Rate 17 19 Blood Pressure 131/60 134/61 Pulse Oximetry 93 L 93 L 93 L 08/15/17 07:40 08/15/17 08:00 08/15/17 09:00 Temperature 97.8 F Pulse Rate 74 Respiratory Rate 16 Blood Pressure 125/60 Pulse Oximetry 90 L 95 95 08/15/17 11:48 08/15/17 15:18 Temperature Pulse Rate 68 66 Respiratory Rate Blood Pressure Pulse Oximetry Intake & Output 08/14/17 08/15/17 08/15/17 18:59 06:59 18:59 Intake Total 350 / 350 500 / 500 Output Total 600 / 600 Balance 350 / 350 -100 / -100 Weight 65.771 kg 65.771 kg Intake: IV 100 / 100 500 / 500 Levaquin 500 mg Premix Inj 500 100 / 100 mg In 100 ml @ 100 mls/hr IV. SIG Q24H [facility]IT[facility] Rx#:[id number] Oral 250 / 250 Output: Urine 600 / 600 Other: # Voids 3 1 Weight On Admission 65.771 kg - Constitutional moderate distress - Routine HEENT Exam Head: Present: normocephalic, atraumatic Eye: Present: EOMI ENT: Present: mucous membranes dry - Routine Neck Exam Present: supple - Routine Cardiovascular Exam Present: RRR - Routine Abdominal Exam Present: tenderness (Right upper quadrant radiating over to the left upper quadrant and back mostly upper abdomen), distended (Generalized), guarding (Mild ) - Routine Neurological Exam Present: alert (Fair to good historian) <Bailee Farr - Last Filed: 08/15/17 16:46> Vital signs: Vital Signs 08/15/17 07:40 08/15/17 08:00 08/15/17 09:00 Temperature 97.8 F Pulse Rate 74 Respiratory Rate 16 Blood Pressure 125/60 Pulse Oximetry 90 L 95 95 08/15/17 11:48 08/15/17 15:18 08/15/17 16:00 Temperature 98.4 F Pulse Rate 68 66 86 Respiratory Rate 16 Blood Pressure 133/61 Pulse Oximetry 90 L 08/15/17 16:20 08/15/17 20:00 08/15/17 23:32 Temperature 98.3 F 98.2 F Pulse Rate 75 70 63 Respiratory Rate 16 17 Blood Pressure 121/55 L 116/55 L Pulse Oximetry 98 97 08/16/17 00:00 08/16/17 04:00 Temperature 97.9 F Pulse Rate 61 63 Respiratory Rate 17 Blood Pressure 127/61 Pulse Oximetry 94 L Intake & Output 08/15/17 08/15/17 08/16/17 06:59 18:59 06:59 Intake Total 350 / 350 500 / 500 Output Total 600 / 600 Balance 350 / 350 -100 / -100 Weight 65.771 kg Intake: IV 100 / 100 500 / 500 Levaquin 500 mg Premix Inj 500 100 / 100 mg In 100 ml @ 100 mls/hr IV. SIG Q24H [facility] Rx#:[id number] Oral 250 / 250 Output: Urine 600 / 600 Other: # Voids 3 1 1 Weight On Admission 65.771 kg <Juhi Cedeno - Last Filed: 08/16/17 06:36> Results - Labs CBC & Chem 7: 08/15/17 06:30 08/15/17 06:30 Labs: Laboratory Results - last 24 hr 08/14/17 08/15/17 08/15/17 18:31 06:30 06:30 WBC 14.3 H RBC 4.19 Hgb 12.4 Hct 37.3 MCV 89.0 MCH 29.5 MCHC 33.2 RDW 14.0 Plt Count 255 MPV 7.9 Neut % (Auto) 78.8 H Lymph % (Auto) 13.4 [place] % (Auto) 7.3 Eos % (Auto) 0.3 Baso % (Auto) 0.2 Neut # (Auto) 11.3 H Lymph # (Auto) 1.9 [place] # (Auto) 1.0 H Eos # (Auto) 0.0 Baso # (Auto) 0.0 WBC Differential . Differential Comment Auto diff final Sodium 137 Potassium 3.2 L Chloride 100 Carbon Dioxide 27.6 Anion Gap 9 BUN 7 Creatinine 0.66 Estimated GFR Greater than 89 Random Glucose 98 Calcium 8.6 Total Bilirubin 0.8 Direct Bilirubin 0.3 H Indirect Bilirubin 0.5 AST 9 L ALT 13 Alkaline Phosphatase 74 Total Protein 6.5 D Albumin 2.8 L D Urine Color Yellow Urine Clarity Clear Urine pH 6.0 Ur Specific Altha Greater than 1.060 H Urine Protein Negative Urine Glucose (UA) Negative Urine Ketones Negative Urine Occult Blood Large H Urine Nitrate Negative Urine Bilirubin Negative Urine Urobilinogen Less than 2 Ur Leukocyte Esterase Negative Urine RBC 16 H Urine WBC 3 Urine Mucus Few H Micro UA Comment Cath-culture not ind Urine Culture Comments Cath-cult not ind - Imaging Impressions Abdomen/Pelvis CT 08/14/17 12:46 CONCLUSION: Fluid within the gallbladder fossa and over the right lobe of liver which may reflect bile leak. Biliary scanning could be performed to further evaluate this if clinically indicated Small right effusion and bibasilar atelectasis. Fluid posterior to the stomach potentially in the lesser sac as above. Bile Acid Absorption NM 08/15/17 00:00 CONCLUSION: 1. Findings of bile leak in the gallbladder fossa <Bailee Farr - Last Filed: 08/15/17 16:46> - Labs CBC & Chem 7: 08/15/17 06:30 08/15/17 06:30 Labs: Laboratory Results - last 24 hr 08/15/17 08/15/17 06:30 06:30 WBC 14.3 H RBC 4.19 Hgb 12.4 Hct 37.3 MCV 89.0 MCH 29.5 MCHC 33.2 RDW 14.0 Plt Count 255 MPV 7.9 Neut % (Auto) 78.8 H Lymph % (Auto) 13.4 [place] % (Auto) 7.3 Eos % (Auto) 0.3 Baso % (Auto) 0.2 Neut # (Auto) 11.3 H Lymph # (Auto) 1.9 [place] # (Auto) 1.0 H Eos # (Auto) 0.0 Baso # (Auto) 0.0 WBC Differential . Differential Comment Auto diff final Sodium 137 Potassium 3.2 L Chloride 100 Carbon Dioxide 27.6 Anion Gap 9 BUN 7 Creatinine 0.66 Estimated GFR Greater than 89 Random Glucose 98 Calcium 8.6 Total Bilirubin 0.8 Direct Bilirubin 0.3 H Indirect Bilirubin 0.5 AST 9 L ALT 13 Alkaline Phosphatase 74 Total Protein 6.5 D Albumin 2.8 L D - Imaging Impressions Bile Acid Absorption NM 08/15/17 00:00 CONCLUSION: 1. Findings of bile leak in the gallbladder fossa <Juhi Cedeno - Last Filed: 08/16/17 06:36> Assessment and Plan (1) Bile leak, postoperative Status: Acute Code(s): K91.89 - Other postprocedural complications and disorders of digestive system; K83.8 - Other specified diseases of biliary tract (2) Abdominal pain Status: Acute Code(s): R10.9 - Unspecified abdominal pain (3) Hx of cholecystectomy Status: Acute Code(s): Z90.49 - Acquired absence of other specified parts of digestive tract - Plan Right upper quadrant abdominal pain, onset for the past 4 days, radiates from right upper quadrant to left upper quadrant back to right upper quadrant with generalized tenderness and mild guarding of her abdomen. No aggregating or relieving factors. Patient is status post cholecystectomy on 08/04/2017. Nausea and vomiting 3 days. HIDA scan shows positive bowel leak in gallbladder fossa. GI has been consulted for ERCP and stent placement. Patient had colonoscopy greater than 10 years ago, unknown results and no previous EGD. No previous history of colon cancer Labs show hemoglobin 12.4, WBC count 14.3 leukocytosis probably due to recent surgical procedure and inflammation. Bilirubin and LFTs normal range Plan Clear liquid trial for this p.m. N.p.o. at midnight Consent for ERCP with stent placement Pain management Anti-medics IV hydration Further recommendations to follow Patient was seen per myself and Dr. Cedeno, this note was written on his behalf <Bailee Farr - Last Filed: 08/15/17 16:46> (1) Bile leak, postoperative Status: Acute Code(s): K91.89 - Other postprocedural complications and disorders of digestive system; K83.8 - Other specified diseases of biliary tract (2) Abdominal pain Status: Acute Code(s): R10.9 - Unspecified abdominal pain (3) Hx of cholecystectomy Status: Acute Code(s): Z90.49 - Acquired absence of other specified parts of digestive tract - Attending Attestation Seen and examined, plan as above ERCP procedure explained to the patient including risk, benefits and possible complications. Consent obtained. Thank you for the consult. <Juhi Cedeno - Last Filed: 08/16/17 06:36> <Bailee Farr M - Last Filed: 08/15/17 16:46> (2) Abdominal pain Qualifiers: Abdominal location: generalized Qualified Code(s): R10.84 - Generalized abdominal pain <Juhi Cedeno A - Last Filed: 08/16/17 06:36> (2) Abdominal pain Qualifiers: Abdominal location: generalized Qualified Code(s): R10.84 - Generalized abdominal pain
--- NOTE | 2017-08-15 17:28 | P.PNGS ---
Subjective Patient reports: still having pain, no flatus, no bowel movement (Pain is mainly in the RUQ) Physical Exam Vital signs: Vital Signs 08/14/17 18:00 08/14/17 19:12 08/14/17 22:31 Temperature 98.3 F 98.4 F Pulse Rate 80 64 71 Respiratory Rate 16 18 18 Blood Pressure 128/60 112/54 L 140/64 Pulse Oximetry 99 97 94 L 08/15/17 00:00 08/15/17 04:00 08/15/17 05:22 Temperature 97.1 F L 97.6 F Pulse Rate 72 81 Respiratory Rate 17 19 Blood Pressure 131/60 134/61 Pulse Oximetry 93 L 93 L 93 L 08/15/17 07:40 08/15/17 08:00 08/15/17 09:00 Temperature 97.8 F Pulse Rate 74 Respiratory Rate 16 Blood Pressure 125/60 Pulse Oximetry 90 L 95 95 08/15/17 11:48 08/15/17 15:18 Temperature Pulse Rate 68 66 Respiratory Rate Blood Pressure Pulse Oximetry Intake & Output 08/14/17 08/15/17 08/15/17 18:59 06:59 18:59 Intake Total 350 / 350 500 / 500 Output Total 600 / 600 Balance 350 / 350 -100 / -100 Weight 65.771 kg 65.771 kg Intake: IV 100 / 100 500 / 500 Levaquin 500 mg Premix Inj 500 100 / 100 mg In 100 ml @ 100 mls/hr IV. SIG Q24H [facility] Rx#:[id number] Oral 250 / 250 Output: Urine 600 / 600 Other: # Voids 3 1 Weight On Admission 65.771 kg Narrative: Abdomen is tender in the RUQ but no involuntary guarding or rebound. Assessment and Plan - Plan D/W Dr. Cedeno who will perform an ERCP and stent placement today or tomorrow. Also D/W Dr. Cheung regarding possible drain placement for sub-hepatic fluid, but he indicated the collection is not large enough to drain via CT guidance. Overall she is stable for now with decreased pain and decrease WBC.
[2017-08-15] MEDS: KCL 20 mEq/NACL 0.45% Inj 1,000 ML IV.CONT SCH (19:07)
[2017-08-15] MEDS: Levofloxacin 500 mg Premix Inj 500 MG/100 ML PIGGYBACK IV.SIG SCH (22:34)
[2017-08-16] MEDS: KCL 20 mEq/NACL 0.45% Inj 1,000 ML IV.CONT SCH ×4 (07:46→20:57)
[2017-08-16] MEDS: Pantoprazole Inj 40 MG Vial IV.PUSH SCH (08:45)
[2017-08-16] MEDS ORDERED: Chlorhexidine Gluconate 2% 1 Pack (2 Cloths) TOPICAL SCH (10:30)
[2017-08-16] MEDS ORDERED: Metoprolol Tartrate 25 MG Tablet PO SCH (10:30)
--- NOTE | 2017-08-16 10:48 | GIPROC ---
[facility] [address] [facility]. [facility], [address] ERCP PROCEDURE REPORT EXAM DATE: 08/16/2017 PATIENT NAME: Le Middleton MR #: [id number] BIRTHDATE: 1955 ATTENDING: Juhi Cedeno MD ORDER #: [id number] MORTGAGE ANALYST: George Saucedo and July Ponce STATUS: inpatient INDICATIONS: The patient is a 62 yr old female here for an ERCP due to suspected complication of previous biliary surgery PROCEDURE PERFORMED: ERCP, Level 2 ERCP with stent placement MEDICATIONS: None and Per Anesthesia. CONSENT: The patient understands the risks and benefits of the procedure and understands that these risks include, but are not limited to: sedation, allergic reaction, infection, perforation and/or bleeding. Alternative means of evaluation and treatment include, among others: physical exam, x-rays, and/or surgical intervention. The patient elects to proceed with this endoscopic procedure. medical equipment was checked for proper function. Hand hygiene and appropriate measures for infection prevention was taken. After the risks, benefits and alternatives of the procedure were thoroughly explained, Informed was verified, confirmed and timeout was successfully executed by the treatment team. With the patient in left semi-prone position, medications were administered intravenously.The Pentax [id number] was passed from the mouth into the esophagus and further advanced from the esophagus into the stomach. From stomach scope was directed to the second portion of the duodenum. Major papilla was aligned with the duodenoscope. The scope position was confirmed fluoroscopically. Rest of the findings/therapeutics are given below. The scope was then completely withdrawn from the patient and the procedure completed. The pulse, BP, and O2 saturation were monitored and documented by the physician and the nursing staff throughout the entire procedure. The patient was cared for as planned according to standard protocol. The patient was then discharged to recovery in stable condition and with appropriate post procedure care. The ampulla was located the second portion of the duodenum. The ampulla appeared normal. There was extravastion of contrast seen from the cystic duct remnant. The biliary tree appeared normal with no evidence of stricture or dilation. The biliary tree appeared normal with no evidence of stones or filling defects. Under endoscopic and fluoroscopic guidance, a 10Fr x 5cm plastic stent was placed in the bile duct. ADVERSE EVENT: There were no complications. IMPRESSIONS: 1. Normal appearing ampulla 2. The biliary tree appeared normal with no evidence of stricture or dilation 3. Extravastion of contast at the GB bed, leak suspected from Cystic duct remnant 4. Plastic biliary stent [id number] placed successfully with good drainage. RECOMMENDATIONS: 1. Liver enzymes 2. Stent removal in 2 months. REPEAT EXAM: Return 2 months ERCP Juhi Cedeno MD eSigned: Juhi Cedeno MD 08/16/2017 10:47 AM cc: PATIENT NAME: Le Middleton MR#: [id number]
[2017-08-16] MEDS ORDERED: Sodium Chlor 0.9% Inj 500 ML IV.SIG SCH (11:00)
[2017-08-16] MEDS ORDERED: Lidocaine PF 1% Inj 5 ML Syringe INFILTRATN ONE (12:00)
[2017-08-16 12:57] LABS: Baso % (Auto) 0.2 % (0.0-2.0); Eos # (Auto) 0.1 th/mm3 (0.0-0.4); Eos % (Auto) 0.9 % (0.0-4.0); Hematocrit 37.1 % (35.0-46.0); Hemoglobin 12.2 gm/dL (11.6-15.3); Lymph # (Auto) 1.3 th/mm3 (1.0-4.8); Mean Corpuscular Hemoglobin 29.3 pg (27.0-34.0); Mean Platelet Volume 7.5 fL (7.0-11.0); Mono # (Auto) 0.7 th/mm3 (0.0-0.9); Mono % (Auto) 5.8 % (0.0-8.0); Neut # (Auto) 10.4 th/mm3 (1.8-7.7); Neut % (Auto) 83.1 % (16.0-70.0); Platelet Count 282 th/mm3 (150-450); Red Blood Count 4.17 mil/mm3 (4.00-5.30); Red Cell Distribution Width 13.7 % (11.6-17.2); White Blood Count 12.5 th/mm3 (4.0-11.0)
[2017-08-16 13:20] LABS: Albumin 2.5 g/dL (3.4-5.0); Anion Gap 12 meq/L (5-15); Aspartate Aminotransferase 16 U/L (15-37); Blood Urea Nitrogen 7 mg/dL (7-18); Chloride 100 meq/L (98-107); Glucose,Random 100 mg/dL (74-106); Sodium 139 meq/L (136-145)
--- NOTE | 2017-08-16 13:20 | FL ---
EXAM DATE: 08/16/2017 1:03 PM EDT AGE/SEX: 62 years / Female INDICATIONS: Obstruction, ERCP and stent placement. CLINICAL DATA: This is the patient's initial encounter. Patient reports that signs and symptoms have been present for 1 day and indicates a pain score of Nonresponsive. MEDICAL/SURGICAL HISTORY: Non-responsive. Non-responsive. COMPARISON: No prior exams available for comparison. FINDINGS: An ERCP was performed by the ordering physician. The images demonstrate a normal common duct extrava sation in the gallbladder fossa. CONCLUSION: Biliary leak as above. Electronically signed by: Yan Redmond MD 08/16/2017 1:19 PM EDT
[2017-08-16 13:21] LABS: Alanine Aminotransferase 15 U/L (10-53)
[2017-08-16 13:23] LABS: Alkaline Phosphatase 79 U/L (45-117); Lipase 17713 U/L (73-393); Total Protein 6.5 g/dL (6.4-8.2)
[2017-08-16] MEDS: Morphine Inj 4 MG/ML Vial IV.PUSH PRN (13:23)
[2017-08-16] MEDS: Levofloxacin 500 mg Premix Inj 500 MG/100 ML PIGGYBACK IV.SIG SCH (22:14)
[2017-08-17] MEDS: KCL 20 mEq/NACL 0.45% Inj 1,000 ML IV.CONT SCH ×3 (04:58→15:51)
[2017-08-17] MEDS: Pantoprazole Inj 40 MG Vial IV.PUSH SCH (08:40)
[2017-08-17 12:31] LABS: Baso % (Auto) 0.3 % (0.0-2.0); Eos # (Auto) 0.1 th/mm3 (0.0-0.4); Hematocrit 36.4 % (35.0-46.0); Hemoglobin 12.2 gm/dL (11.6-15.3); Lymph # (Auto) 1.7 th/mm3 (1.0-4.8); Lymph % (Auto) 15.2 % (9.0-44.0); Mean Corpuscular HGB Conc 33.5 % (32.0-36.0); Mean Corpuscular Hemoglobin 29.5 pg (27.0-34.0); Mean Corpuscular Volume 88.2 fL (80.0-100.0); Mean Platelet Volume 7.4 fL (7.0-11.0); Mono # (Auto) 0.8 th/mm3 (0.0-0.9); Mono % (Auto) 7.3 % (0.0-8.0); Neut # (Auto) 8.3 th/mm3 (1.8-7.7); Neut % (Auto) 76.2 % (16.0-70.0); Platelet Count 313 th/mm3 (150-450); Red Blood Count 4.13 mil/mm3 (4.00-5.30); White Blood Count 10.9 th/mm3 (4.0-11.0)
[2017-08-17 13:01] LABS: Albumin 2.6 g/dL (3.4-5.0); Calcium 8.3 mg/dL (8.5-10.1); Carbon Dioxide 30.4 meq/L (21.0-32.0); Total Protein 6.5 g/dL (6.4-8.2)
[2017-08-17 13:05] LABS: Potassium 2.5 meq/L (3.5-5.1)
--- NOTE | 2017-08-17 14:17 | P.PNGI ---
Subjective Interval history: Pt resting in bed. Reports some soreness to RUQ but states overall she is feeling much better. Denies nausea, vomiting. Tolerating regular dier. (+) BM and states normal. <Katerina Tobias - Last Filed: 08/17/17 14:13> Physical Exam Vital signs: Vital Signs 08/16/17 16:00 08/16/17 17:13 08/16/17 20:00 Temperature 97.6 F 98.3 F Pulse Rate 66 64 69 Respiratory Rate 16 16 Blood Pressure 109/55 L 101/55 L Pulse Oximetry 90 L 87 L 08/17/17 00:00 08/17/17 01:00 08/17/17 04:00 Temperature 98.7 F 98.2 F Pulse Rate 69 61 67 Respiratory Rate 16 17 Blood Pressure 137/65 120/58 L Pulse Oximetry 84 L 86 L 08/17/17 08:00 08/17/17 08:44 08/17/17 08:49 Temperature 98.6 F Pulse Rate 100 H 59 L Respiratory Rate 16 16 Blood Pressure 117/53 L Pulse Oximetry 90 L 08/17/17 12:00 Temperature 97.7 F Pulse Rate 67 Respiratory Rate 16 Blood Pressure 118/56 L Pulse Oximetry 92 L Intake & Output 08/16/17 08/17/17 08/17/17 18:59 06:59 18:59 Intake Total 1800 / 1800 2040 / 2040 1000 / 1000 Balance 1800 / 1800 2040 / 2040 1000 / 1000 Intake: IV 1100 / 1100 100 / 100 1000 / 1000 Potassium Chlor 20 mEq/NACL 0. 1000 / 1000 1000 / 1000 45% Inj 1,000 ML @ 175 mls/hr IV.CONT .Q5H43M [facility] Rx#: [id number] Levaquin 500 mg Premix Inj 500 100 / 100 100 / 100 mg In 100 ml @ 100 mls/hr IV. SIG Q24H [facility] Rx#:[id number] Oral 540 / 540 Anesthesia Amount 700 / 700 Other 1400 / 1400 Other: # Voids 1 3 Date of Last Bowel Movement 08/17/17 - Constitutional no acute distress - Routine HEENT Exam Head: Present: normocephalic, atraumatic - Routine Respiratory Exam Absent: accessory muscle use - Routine Abdominal Exam Present: soft, normoactive bowel sounds, tenderness (mild RUQ tenderness ). Absent: distended, rebound, guarding, firm - Routine Skin Exam Present: dry, warm - Routine Neurological Exam Present: alert, oriented X3 <Katerina Tobias - Last Filed: 08/17/17 14:13> Vital signs: Vital Signs 08/17/17 00:00 08/17/17 01:00 08/17/17 04:00 Temperature 98.7 F 98.2 F Pulse Rate 69 61 67 Respiratory Rate 16 17 Blood Pressure 137/65 120/58 L Pulse Oximetry 84 L 86 L 08/17/17 08:00 08/17/17 08:44 08/17/17 08:49 Temperature 98.6 F Pulse Rate 100 H 59 L Respiratory Rate 16 16 Blood Pressure 117/53 L Pulse Oximetry 90 L 08/17/17 12:00 08/17/17 16:00 08/17/17 17:00 Temperature 97.7 F 97.8 F Pulse Rate 67 70 67 Respiratory Rate 16 16 Blood Pressure 118/56 L 132/60 Pulse Oximetry 92 L 92 L 08/17/17 20:00 Temperature 98.6 F Pulse Rate 70 Respiratory Rate 18 Blood Pressure 111/54 L Pulse Oximetry 90 L Intake & Output 08/17/17 08/17/17 08/18/17 06:59 18:59 06:59 Intake Total 2040 / 2040 1000 / 1000 Balance 2040 / 2040 1000 / 1000 Intake: IV 100 / 100 1000 / 1000 Potassium Chlor 20 mEq/NACL 0. 1000 / 1000 45% Inj 1,000 ML @ 175 mls/hr IV.CONT .Q5H43M [facility] Rx#: [id number] Levaquin 500 mg Premix Inj 500 100 / 100 mg In 100 ml @ 100 mls/hr IV. SIG Q24H [facility] Rx#:[id number] Oral 540 / 540 Other 1400 / 1400 Other: # Voids 3 3 Date of Last Bowel Movement 08/17/17 <Juhi Cedeno - Last Filed: 08/17/17 20:24> Results - Labs CBC & Chem 7: 08/17/17 11:50 08/17/17 11:50 Laboratory Results - last 24 hr 08/17/17 08/17/17 11:50 11:50 WBC 10.9 RBC 4.13 Hgb 12.2 Hct 36.4 MCV 88.2 MCH 29.5 MCHC 33.5 RDW 14.0 Plt Count 313 MPV 7.4 Neut % (Auto) 76.2 H Lymph % (Auto) 15.2 [place] % (Auto) 7.3 Eos % (Auto) 1.0 Baso % (Auto) 0.3 Neut # (Auto) 8.3 H Lymph # (Auto) 1.7 [place] # (Auto) 0.8 Eos # (Auto) 0.1 Baso # (Auto) 0.0 WBC Differential . Differential Comment Auto diff final Sodium 138 Potassium 2.5 L* Chloride 99 Carbon Dioxide 30.4 Anion Gap 9 BUN 8 Creatinine 0.73 Estimated GFR 81 L Random Glucose 106 Calcium 8.3 L Total Bilirubin 0.7 Direct Bilirubin 0.3 H Indirect Bilirubin 0.4 AST 25 ALT 21 Alkaline Phosphatase 93 Total Protein 6.5 Albumin 2.6 L Lipase 2526 H Microbiology 08/14/17 13:05 Blood - Peripheral Aerobic Blood Culture - Preliminary No growth in 3 days 08/14/17 13:05 Blood - Peripheral Anaerobic Blood Culture - Preliminary No growth in 3 days 08/14/17 12:00 Blood - Peripheral Aerobic Blood Culture - Preliminary No growth in 3 days 08/14/17 12:00 Blood - Peripheral Anaerobic Blood Culture - Preliminary No growth in 3 days <Katerina Tobias - Last Filed: 08/17/17 14:13> - Labs CBC & Chem 7: 08/17/17 11:50 08/17/17 11:50 Laboratory Results - last 24 hr 08/17/17 08/17/17 11:50 11:50 WBC 10.9 RBC 4.13 Hgb 12.2 Hct 36.4 MCV 88.2 MCH 29.5 MCHC 33.5 RDW 14.0 Plt Count 313 MPV 7.4 Neut % (Auto) 76.2 H Lymph % (Auto) 15.2 [place] % (Auto) 7.3 Eos % (Auto) 1.0 Baso % (Auto) 0.3 Neut # (Auto) 8.3 H Lymph # (Auto) 1.7 [place] # (Auto) 0.8 Eos # (Auto) 0.1 Baso # (Auto) 0.0 WBC Differential . Differential Comment Auto diff final Sodium 138 Potassium 2.5 L* Chloride 99 Carbon Dioxide 30.4 Anion Gap 9 BUN 8 Creatinine 0.73 Estimated GFR 81 L Random Glucose 106 Calcium 8.3 L Total Bilirubin 0.7 Direct Bilirubin 0.3 H Indirect Bilirubin 0.4 AST 25 ALT 21 Alkaline Phosphatase 93 Total Protein 6.5 Albumin 2.6 L Lipase 2526 H Microbiology 08/14/17 13:05 Blood - Peripheral Aerobic Blood Culture - Preliminary No growth in 3 days 08/14/17 13:05 Blood - Peripheral Anaerobic Blood Culture - Preliminary No growth in 3 days 08/14/17 12:00 Blood - Peripheral Aerobic Blood Culture - Preliminary No growth in 3 days 08/14/17 12:00 Blood - Peripheral Anaerobic Blood Culture - Preliminary No growth in 3 days <Juhi Cedeno - Last Filed: 08/17/17 20:24> Assessment and Plan (1) Bile leak, postoperative Status: Acute Code(s): K91.89 - Other postprocedural complications and disorders of digestive system; K83.8 - Other specified diseases of biliary tract (2) Abdominal pain Status: Acute Code(s): R10.9 - Unspecified abdominal pain (3) Hx of cholecystectomy Status: Acute Code(s): Z90.49 - Acquired absence of other specified parts of digestive tract - Plan Assessment: - RUQ pain S/P cholecystectomy with HIDA scan revealing a bile leak and elevated lipase Pt had ERCP done yesterday with plastic stent placement, reports great improvement in symptoms today, some mild RUQ discomfort. Denies nausea, vomiting. Tolerating regular diet. (08/17) Lipase trending down today. Pt reports significant improvement in symptoms. Tolerating regular diet. Plan ERCP with stent removal in 2 months GI will sign off, further recommendations per GS Have pt follow up with GI after DC Patient has been seen and examined by myself and Dr. Cedeno and this note is written on his behalf <Katerina Tobias - Last Filed: 08/17/17 14:13> (1) Bile leak, postoperative Status: Acute Code(s): K91.89 - Other postprocedural complications and disorders of digestive system; K83.8 - Other specified diseases of biliary tract (2) Abdominal pain Status: Acute Code(s): R10.9 - Unspecified abdominal pain (3) Hx of cholecystectomy Status: Acute Code(s): Z90.49 - Acquired absence of other specified parts of digestive tract - Attending Attestation Had minor attack of abdominal pain that resolved today. Tolerating diet well. Will need to schedule out patient follow up for stent removal in 8 to 12 weeks from now. <Juhi Cedeno - Last Filed: 08/17/17 20:24> <Katerina Tobias - Last Filed: 08/17/17 14:13> (2) Abdominal pain Qualifiers: Abdominal location: generalized Qualified Code(s): R10.84 - Generalized abdominal pain <Juhi Cedeno - Last Filed: 08/17/17 20:24> (2) Abdominal pain Qualifiers: Abdominal location: generalized Qualified Code(s): R10.84 - Generalized abdominal pain
[2017-08-17] MEDS ORDERED: SODIUM CHLOR 0.9% IV.SIG ONE (15:00)
[2017-08-17] MEDS ORDERED: POTASSIUM CHLORIDE IV.SIG ONE (15:00)
--- NOTE | 2017-08-17 20:04 | P.DS ---
Date of admission: 08/15/17 17:30 Primary care physician: Baljit Quezada MD Anticipated date of discharge: 08/17/17 Brief History from admission: Patient underwent laparoscopic cholecystectomy 10 days before admission. Was admitted for increasing abdominal pain without N/V. Evaluation in the ED showed elevated WBC and a possible biliary leak. DS: Diagnosis - Discharge Diagnosis (1) Bile leak, postoperative Status: Acute (2) Hx of cholecystectomy Status: Acute (3) Leukocytosis Status: Acute DS: Summary Hospital Course: She underwent HIDA scan which showed leak in the gallbladder fossa and ERCP confirmed it. A CBD stent was placed and the patient improved dramatically over 24 hours. Her pain was minimal and she was tolerating a diet. She was to be discharged without extra meds and is to be seen in one week in the office. - Time Spent with Patient Total time spent providing and/or coordinating discharge services: Less than 30 minutes - Quality: AMI Clinical Trial Participant: No - Quality: VTE Deep Vein Thrombosis/Pulmonary Embolism Present on Admission: No Exam Vital signs: Vital Signs 08/16/17 20:00 08/17/17 00:00 08/17/17 01:00 Temperature 98.3 F 98.7 F Pulse Rate 69 69 61 Respiratory Rate 16 16 Blood Pressure 101/55 L 137/65 Pulse Oximetry 87 L 84 L 08/17/17 04:00 08/17/17 08:00 08/17/17 08:44 Temperature 98.2 F 98.6 F Pulse Rate 67 100 H Respiratory Rate 17 16 16 Blood Pressure 120/58 L 117/53 L Pulse Oximetry 86 L 90 L 08/17/17 08:49 08/17/17 12:00 08/17/17 16:00 Temperature 97.7 F 97.8 F Pulse Rate 59 L 67 70 Respiratory Rate 16 16 Blood Pressure 118/56 L 132/60 Pulse Oximetry 92 L 92 L 08/17/17 17:00 Temperature Pulse Rate 67 Respiratory Rate Blood Pressure Pulse Oximetry Intake & Output 08/17/17 08/17/17 08/18/17 06:59 18:59 06:59 Intake Total 2039 / 2039 1000 / 1000 Balance 2039 1000 / 1000 Intake: IV 100 / 100 1000 / 1000 Potassium Chlor 20 mEq/NACL 0. 1000 / 1000 45% Inj 1,000 ML @ 175 mls/hr IV.CONT .Q5H43M [facility] Rx#: [id number] Levaquin 500 mg Premix Inj 500 100 / 100 mg In 100 ml @ 100 mls/hr IV. SIG Q24H [facility] Rx#:[id number] Oral 540 / 540 Other 1400 / 1400 Other: # Voids 3 3 Date of Last Bowel Movement 08/17/17 - Constitutional no acute distress - Routine HEENT Exam Head: Present: normocephalic Eye: Present: EOMI ENT: Present: mucous membranes moist - Routine Neck Exam Present: supple - Routine Respiratory Exam Present: CTA bilaterally - Routine Cardiovascular Exam Present: RRR - Routine Abdominal Exam Present: soft, normoactive bowel sounds Results Procedures completed during hospitalization: ERCP with CBD stent placement 16 August. Completed studies during hospitalization: HIDA scan Pending studies at discharge: NONE Labs on day of discharge: Labs from last 24 hours 08/17/17 08/17/17 11:50 11:50 WBC 10.9 RBC 4.13 Hgb 12.2 Hct 36.4 MCV 88.2 MCH 29.5 MCHC 33.5 RDW 14.0 Plt Count 313 MPV 7.4 Neut % (Auto) 76.2 H Lymph % (Auto) 15.2 [place] % (Auto) 7.3 Eos % (Auto) 1.0 Baso % (Auto) 0.3 Neut # (Auto) 8.3 H Lymph # (Auto) 1.7 [place] # (Auto) 0.8 Eos # (Auto) 0.1 Baso # (Auto) 0.0 WBC Differential . Differential Comment Auto diff final Sodium 138 Potassium 2.5 L* Chloride 99 Carbon Dioxide 30.4 Anion Gap 9 BUN 8 Creatinine 0.73 Estimated GFR 81 L Random Glucose 106 Calcium 8.3 L Total Bilirubin 0.7 Direct Bilirubin 0.3 H Indirect Bilirubin 0.4 AST 25 ALT 21 Alkaline Phosphatase 93 Total Protein 6.5 Albumin 2.6 L Lipase 2526 H Preliminary micro results at discharge 08/14/17 13:05 Aerobic Blood Culture - Preliminary Blood - Peripheral No growth in 3 days Anaerobic Blood Culture - Preliminary No growth in 3 days 08/14/17 12:00 Aerobic Blood Culture - Preliminary Blood - Peripheral No growth in 3 days Anaerobic Blood Culture - Preliminary No growth in 3 days - Impressions ITS Impressions Abdomen/Pelvis CT 08/14/17 12:46 CONCLUSION: Fluid within the gallbladder fossa and over the right lobe of liver which may reflect bile leak. Biliary scanning could be performed to further evaluate this if clinically indicated Small right effusion and bibasilar atelectasis. Fluid posterior to the stomach potentially in the lesser sac as above. Bile Acid Absorption NM 08/15/17 00:00 CONCLUSION: 1. Findings of bile leak in the gallbladder fossa GI Procedure 08/16/17 00:00 CONCLUSION: Biliary leak as above. Discharge Plan - Discharge Disposition Patient Disposition: 01 Discharge Home - Discharge Order Discharge Orders: Discharge Order (Routine); Ordered 08/17/17 Ordered By: Tiago Ceballos - Physicians Team Primary Care Provider: Baljit Quezada Attending Provider: Tiago Ceballos Other Providers: Juhi Cedeno MD Medications and Allergies Active Medications: Active Medications Chlorhexidine Gluconate (Chlorhexidine 2% Cloth) 3 pack TOPICAL FOOD ORDER DELIVERY RUNNER [facility] Stop: 08/19/17 10:21 Levofloxacin/Dextrose (Levaquin 500 Mg Premix Inj) 500 mg in 100 mls @ 100 mls/ hr IV.SIG Q24H [facility] Last Infusion: 08/17/17 00:50 Dose: Infused Potassium Chloride/Sodium Chloride (Potassium Chlor 20 Meq/Nacl 0.45% Inj) 1, 000 mls @ 175 mls/hr IV.CONT .Q5H43M [facility] Last Admin: 08/17/17 15:51 Dose: Not Given Sodium Chloride (Ns Inj) 500 mls @ 30 mls/hr IV.SIG .Q10H [facility] Stop: 08/19/17 10:21 Lactated Ringer's (Lr 1000 Ml Inj) 1,000 mls @ 30 mls/hr IV.SIG .Q24H [facility] Stop: 08/19/17 10:21 Last Admin: 08/17/17 11:55 Dose: Not Given Metoclopramide HCl (Reglan Inj) 10 mg IV.PUSH Q6H PRN; Protocol PRN Reason: NAUSEA Metoprolol Tartrate (Lopressor) 25 mg PO FOOD ORDER DELIVERY RUNNER [facility] Stop: 08/19/17 10:21 Morphine Sulfate (Morphine Inj) 2 mg IV.PUSH Q2H PRN PRN Reason: PAIN SCALE 1 TO 5 OR COUGHING Last Admin: 08/15/17 23:00 Dose: 2 mg Morphine Sulfate (Morphine Inj) 4 mg IV.PUSH Q2H PRN PRN Reason: PAIN 6-10;IF UNABLE TO TAKE PO Last Admin: 08/16/17 13:23 Dose: 4 mg Pantoprazole Sodium (Protonix Inj) 40 mg IV.PUSH DAILY [facility] Last Admin: 08/17/17 08:40 Dose: 40 mg Povidone Iodine (Betadine 5% Antisepsis Kit) 1 applicatio EACH NARE FOOD ORDER DELIVERY RUNNER [facility] Stop: 08/19/17 10:21 Sodium Chloride (Ns Flush) 2 ml IV.FLUSH BID [facility] Last Admin: 08/17/17 08:41 Dose: 2 ml Sodium Chloride (Ns Flush) 2 ml IV.FLUSH PRN PRN PRN Reason: FLUSH AFTER USING IV ACCESS Last Admin: 08/16/17 13:23 Dose: 2 ml Allergies Allergy/AdvReac Type Severity Reaction Status Date / Time No Known Allergies Allergy Verified 08/14/17 12:55 Home Medications Medication Instructions Recorded Confirmed Type amlodipine 5 mg PO DAILY 08/12/17 08/14/17 History aspirin 81 mg PO DAILY 08/12/17 08/14/17 History atorvastatin 80 mg PO HS 08/12/17 08/14/17 History estradiol 1 tab PO DAILY 08/12/17 08/14/17 History gabapentin 300 mg PO TID 08/12/17 08/14/17 History hyoscyamine sulfate [Levsin/SL] 0.125 mg SUBLINGUAL QID PRN 08/12/17 08/14/17 History tramadol 50 mg PO Q6H PRN 08/12/17 08/14/17 History
== END 2017-08-17 20:46 | disposition home or self-care (01) ==
LOC: NEPE 12:05 → NEDA 18:57 → INTOOBSV 18:57 → NEPGCP 23:34
PROVIDERS: ADMIT Surgery; ATTEND Surgery
DX: Z85.828 Personal history of other malignant neoplasm of skin; R10.11 Right upper quadrant pain; Y83.6 Removal of other organ (partial) (total) as the cause of abnormal reaction of the patient, or of later complication, without mention of misadventure at the time of the procedure; Z79.82 Long term (current) use of aspirin; F17.210 Nicotine dependence, cigarettes, uncomplicated; I25.2 Old myocardial infarction; Z90.49 Acquired absence of other specified parts of digestive tract; K91.89 Other postprocedural complications and disorders of digestive system

== ENCOUNTER 2018-02-17 21:31 | Observation (INO) ==
[2018-02-17] MEDS ORDERED: Sod Chloride 0.9% Inj 1,000 ML IV.SIG ONE ×2 (21:50→23:06)
[2018-02-17] MEDS ORDERED: Calcium Gluconate Inj 1 GM in Sodium Chlor 0.9% Inj 100 ML IV.SIG ONE (22:02)
[2018-02-17 22:05] LABS: Baso # (Auto) 0.2 th/mm3 (0.0-0.2); Baso % (Auto) 1.9 % (0.0-2.0); Eos # (Auto) 0.3 th/mm3 (0.0-0.4); Eos % (Auto) 2.6 % (0.0-4.0); Hemoglobin 13.8 gm/dL (11.6-15.3); Lymph # (Auto) 6.6 th/mm3 (1.0-4.8); Lymph % (Auto) 49.8 % (9.0-44.0); Mean Corpuscular HGB Conc 33.6 % (32.0-36.0); Mean Corpuscular Hemoglobin 29.8 pg (27.0-34.0); Mean Corpuscular Volume 88.6 fL (80.0-100.0); Mean Platelet Volume 6.8 fL (7.0-11.0); Mono # (Auto) 0.9 th/mm3 (0.0-0.9); Mono % (Auto) 6.5 % (0.0-8.0); Neut # (Auto) 5.1 th/mm3 (1.8-7.7); Neut % (Auto) 39.2 % (16.0-70.0); Platelet Count 412 th/mm3 (150-450); Red Blood Count 4.63 mil/mm3 (4.00-5.30); Red Cell Distribution Width 14.1 % (11.6-17.2); White Blood Count 13.1 th/mm3 (4.0-11.0)
--- NOTE | 2018-02-17 22:06 | ED ---
HPI General Chief Complaint: Syncope Stated Complaint: Low bp Time Seen by Provider: 02/17/18 21:50 Source: patient Mode of arrival: ambulatory Limitations: no limitations History of Present Illness HPI narrative: Primary care physician is iPlar Cunningham, music education adjunct professor is Dr. Raúl Cha. Past medical history significant for hypercholesterolemia hypertension sciatica hysterectomy [place] x2 in 2017. Today according to her she stated that she was outside it was cool day yet the patient felt very hot and flushed, while she was sitting out. Then suddenly she became unresponsive and had a glazed look over her eyes and was unresponsive for approximately 45 seconds or so. They called 911 EMS found patient to be hypotensive and they recommended the patient come into the emergency department for further evaluation. In route to the emergency department apparently the patient had 2 episodes of nausea and vomiting no episodes of any diarrhea. According to the patient she did not have any presyncopal episodes or symptoms. MD complaint: Reports loss of consciousness Onset (ago): minute(s) (40) Duration of episode: 1 -: minutes(s) Description of event: Denies tonic-clonic movements, focal shaking, stopped breathing, lost pulse and CPR performed Prodromal symptoms: Reports none Witnessed: yes - by bystander Context: Reports at rest Injuries sustained associated with event: Reports none Current symptoms: Reports back to baseline History: Reports history of CAD Treatments prior to arrival: Reports none Related Data Home Medications Medication Instructions Recorded Confirmed aspirin 81 mg PO DAILY 08/12/17 02/17/18 atorvastatin 80 mg PO HS 08/12/17 02/17/18 melatonin-herbal no.233 [MidNite] 1 tab PO HS PRN 02/17/18 02/17/18 Previous Rx's Medication Instructions Recorded acetaminophen 650 mg PO Q4H PRN tab 02/18/18 amlodipine 2.5 mg PO DAILY #30 tab 02/18/18 Allergies Allergy/AdvReac Type Severity Reaction Status Date / Time No Known Allergies Allergy Verified 11/02/17 09:23 Review of Systems ROS: all other systems reviewed are negative PMFSH History History Provided By: Patient Medical History Medical History Degenerative disc disease (Acute) H/O: hysterectomy (Acute) Low back pain (Acute) Myocardial infarction (Acute) Sciatica (Acute) Skin cancer (Acute) Surgical History Surgical History S/P cholecystectomy (Acute) Social History Social History Substance History: No History of Abuse Second Hand Smoke Exposure: Yes Smoking Status: Current every day smoker Tobacco Type: Cigarettes How Often Do You Have a Drink Containing Alcohol: Never Recent Travel in [facility] within the Last 8 Weeks: No Recent Out of Country Travel within the Last 8 Weeks: No Exam Narrative Exam Narrative: GENERAL: Elderly female, diaphoretic, pale appearing in moderate apparent distress. SKIN: Warm and dry. HEAD: Atraumatic. Normocephalic. EYES: Pupils equal and round. No scleral icterus. No injection or drainage. ENT: No nasal bleeding or discharge. Mucous membranes pink and moist. NECK: Trachea midline. No JVD. CARDIOVASCULAR: Regular rate and rhythm. no rubs or gallops RESPIRATORY: No accessory muscle use. Clear to auscultation. Breath sounds equal bilaterally. GASTROINTESTINAL: Abdomen soft, non-tender, nondistended. No rebound or guarding MUSCULOSKELETAL: Extremities without clubbing, cyanosis, or edema. No obvious deformities. NEUROLOGICAL: Awake and alert. No obvious cranial nerve deficits. Motor grossly within normal limits. Five out of 5 muscle strength in the arms and legs. Normal speech. PSYCHIATRIC: Appropriate mood and affect; insight and judgment normal. Course Initial Documented Vital Signs Pulse Rate 62 02/17/18 21:34 Respiratory Rate 18 02/17/18 21:34 Blood Pressure 96/47 L 02/17/18 21:34 Last Documented Vital Signs Temperature 96.3 F L 02/18/18 15:54 Pulse Rate 70 02/18/18 16:00 Respiratory Rate 18 02/18/18 15:54 Blood Pressure 114/50 L 02/18/18 15:54 Pulse Oximetry 98 02/18/18 15:54 Critical Care Time Critical Care Time: Yes Total Critical Care Time: 30 Attestation: Aggregate critical care time was 30 minutes. Time to perform other separately billable procedures was not included in the critical care time. My time did not include minutes spent treating any other patients simultaneously or on activities that did not directly contribute to the patient's treatment. The services I provided to this patient were to treat and/or prevent clinically significant deterioration I provided critical care services requiring my management, as noted below: Chart data review, documentation time, medication orders and management, vital sign assessments/reviewing monitor data, ordering and reviewing lab tests, ordering and interpreting/reviewing x-rays and diagnostic studies, care of the patient and discussion of the patient with the admitting physicians. Medical Decision Making MDM Narrative Medical decision making narrative: Mild leukocytosis of 13,000... Lymphocytosis noted of 50%, normal platelet count no anemia Coagulation profile is within normal limits Elect lites are within normal limits. Slightly elevated creatinine of 1.1 GFR 50 Normal liver and pancreatic functions. Normal beta natruretic peptide and normal first set of cardiac enzymes Medical Screen Exam Complete: Yes Emergency Medical Condition: Yes Lab Data Result diagrams: 02/17/18 21:52 02/18/18 08:20 Lab Results 02/17/18 02/17/18 02/17/18 Range/Units 21:50 21:52 21:52 CBC w Diff Auto diff final WBC 13.1 H (4.0-11.0) th/mm3 RBC 4.63 (4.00-5.30) mil/mm3 Hgb 13.8 (11.6-15.3) gm/dL Hct 41.0 (35.0-46.0) % MCV 88.6 (80.0-100.0) fL MCH 29.8 (27.0-34.0) pg MCHC 33.6 (32.0-36.0) % RDW 14.1 (11.6-17.2) % Plt Count 412 (150-450) th/mm3 MPV 6.8 L (7.0-11.0) fL Neut % (Auto) 39.2 (16.0-70.0) % Lymph % (Auto) 49.8 H (9.0-44.0) % [place] % (Auto) 6.5 (0.0-8.0) % Eos % (Auto) 2.6 (0.0-4.0) % Baso % (Auto) 1.9 (0.0-2.0) % Neut # (Auto) 5.1 (1.8-7.7) th/mm3 Lymph # (Auto) 6.6 H (1.0-4.8) th/mm3 [place] # (Auto) 0.9 (0.0-0.9) th/mm3 Eos # (Auto) 0.3 (0.0-0.4) th/mm3 Baso # (Auto) 0.2 (0.0-0.2) th/mm3 WBC Differential . Differential Comment . PT 10.5 (9.8-11.6) sec INR 1.0 Ratio APTT 29.1 (23.4-31.7) sec Sodium (136-145) meq/L Potassium (3.5-5.1) meq/L Chloride (98-107) meq/L Carbon Dioxide (21.0-32.0) meq/L Anion Gap (5-15) meq/L BUN (7-18) mg/dL Creatinine (0.50-1.00) mg/dL Estimated GFR (>89) mL/min Random Glucose (74-106) mg/dL Lactic Acid 1.5 (0.4-2.0) mmol/L Calcium (8.5-10.1) mg/dL Magnesium (1.5-2.5) mg/dL Total Bilirubin (0.2-1.0) mg/dL AST (15-37) U/L ALT (10-53) U/L Alkaline Phosphatase (45-117) U/L Total Creatine Kinase (26-192) U/L Troponin I (0.02-0.05) ng/mL B-Natriuretic Peptide (0-100) pg/mL Total Protein (6.4-8.2) g/dL Albumin (3.4-5.0) g/dL Lipase (73-393) U/L Urine Color (Yellw/Straw) Urine Clarity (Clear) Urine pH (5.0-8.5) Ur Specific [place] (1.002-1.035) Urine Protein (Neg-Trace) mg/dL Urine Glucose (UA) (Negative) mg/dL Urine Ketones (Negative) mg/dL Urine Occult Blood (Negative) Urine Nitrate (Negative) Urine Bilirubin (Negative) Urine Urobilinogen (Less than 2) mg/dL Ur Leukocyte Esterase (Negative) Urine RBC (0-3) /hpf Urine WBC (0-5) /hpf Ur Squamous Epith Cells (0-5) /hpf Micro UA Comment Ur Microscopic Review Urine Culture Comments Urine Opiates Screen (Neg) Ur Barbiturates Screen (Neg) Ur Amphetamines Screen (Neg) U Benzodiazepines Scrn (Neg) Urine Cocaine Screen (Neg) U Cannabinoids Screen (Neg) 02/17/18 02/17/18 02/18/18 Range/Units 21:52 21:52 00:55 CBC w Diff WBC (4.0-11.0) th/mm3 RBC (4.00-5.30) mil/mm3 Hgb (11.6-15.3) gm/dL Hct (35.0-46.0) % MCV (80.0-100.0) fL MCH (27.0-34.0) pg MCHC (32.0-36.0) % RDW (11.6-17.2) % Plt Count (150-450) th/mm3 MPV (7.0-11.0) fL Neut % (Auto) (16.0-70.0) % Lymph % (Auto) (9.0-44.0) % [place] % (Auto) (0.0-8.0) % Eos % (Auto) (0.0-4.0) % Baso % (Auto) (0.0-2.0) % Neut # (Auto) (1.8-7.7) th/mm3 Lymph # (Auto) (1.0-4.8) th/mm3 [place] # (Auto) (0.0-0.9) th/mm3 Eos # (Auto) (0.0-0.4) th/mm3 Baso # (Auto) (0.0-0.2) th/mm3 WBC Differential Differential Comment PT (9.8-11.6) sec INR Ratio APTT (23.4-31.7) sec Sodium 136 (136-145) meq/L Potassium 3.3 L (3.5-5.1) meq/L Chloride 100 (98-107) meq/L Carbon Dioxide 27.5 (21.0-32.0) meq/L Anion Gap 9 (5-15) meq/L BUN 15 (7-18) mg/dL Creatinine 1.10 H (0.50-1.00) mg/dL Estimated GFR 50 L (>89) mL/min Random Glucose 150 H (74-106) mg/dL Lactic Acid (0.4-2.0) mmol/L Calcium 9.2 (8.5-10.1) mg/dL Magnesium 1.8 (1.5-2.5) mg/dL Total Bilirubin 0.6 (0.2-1.0) mg/dL AST 16 (15-37) U/L ALT 21 (10-53) U/L Alkaline Phosphatase 78 (45-117) U/L Total Creatine Kinase 85 (26-192) U/L Troponin I Less than 0.02 L Less than 0.02 L (0.02-0.05) ng/mL B-Natriuretic Peptide 7 (0-100) pg/mL Total Protein 7.6 (6.4-8.2) g/dL Albumin 3.9 (3.4-5.0) g/dL Lipase 113 (73-393) U/L Urine Color (Yellw/Straw) Urine Clarity (Clear) Urine pH (5.0-8.5) Ur Specific [place] (1.002-1.035) Urine Protein (Neg-Trace) mg/dL Urine Glucose (UA) (Negative) mg/dL Urine Ketones (Negative) mg/dL Urine Occult Blood (Negative) Urine Nitrate (Negative) Urine Bilirubin (Negative) Urine Urobilinogen (Less than 2) mg/dL Ur Leukocyte Esterase (Negative) Urine RBC (0-3) /hpf Urine WBC (0-5) /hpf Ur Squamous Epith Cells (0-5) /hpf Micro UA Comment Ur Microscopic Review Urine Culture Comments Urine Opiates Screen (Neg) Ur Barbiturates Screen (Neg) Ur Amphetamines Screen (Neg) U Benzodiazepines Scrn (Neg) Urine Cocaine Screen (Neg) U Cannabinoids Screen (Neg) 02/18/18 02/18/18 02/18/18 Range/Units 00:55 00:55 08:20 CBC w Diff WBC (4.0-11.0) th/mm3 RBC (4.00-5.30) mil/mm3 Hgb (11.6-15.3) gm/dL Hct (35.0-46.0) % MCV (80.0-100.0) fL MCH (27.0-34.0) pg MCHC (32.0-36.0) % RDW (11.6-17.2) % Plt Count (150-450) th/mm3 MPV (7.0-11.0) fL Neut % (Auto) (16.0-70.0) % Lymph % (Auto) (9.0-44.0) % [place] % (Auto) (0.0-8.0) % Eos % (Auto) (0.0-4.0) % Baso % (Auto) (0.0-2.0) % Neut # (Auto) (1.8-7.7) th/mm3 Lymph # (Auto) (1.0-4.8) th/mm3 [place] # (Auto) (0.0-0.9) th/mm3 Eos # (Auto) (0.0-0.4) th/mm3 Baso # (Auto) (0.0-0.2) th/mm3 WBC Differential Differential Comment PT (9.8-11.6) sec INR Ratio APTT (23.4-31.7) sec Sodium 142 (136-145) meq/L Potassium 3.8 (3.5-5.1) meq/L Chloride 109 H D (98-107) meq/L Carbon Dioxide 24.9 (21.0-32.0) meq/L Anion Gap 8 (5-15) meq/L BUN 11 (7-18) mg/dL Creatinine 0.73 (0.50-1.00) mg/dL Estimated GFR 80 L (>89) mL/min Random Glucose 91 (74-106) mg/dL Lactic Acid (0.4-2.0) mmol/L Calcium 8.1 L D (8.5-10.1) mg/dL Magnesium (1.5-2.5) mg/dL Total Bilirubin (0.2-1.0) mg/dL AST (15-37) U/L ALT (10-53) U/L Alkaline Phosphatase (45-117) U/L Total Creatine Kinase (26-192) U/L Troponin I Less than 0.02 L (0.02-0.05) ng/mL B-Natriuretic Peptide (0-100) pg/mL Total Protein (6.4-8.2) g/dL Albumin (3.4-5.0) g/dL Lipase (73-393) U/L Urine Color Yellow (Yellw/Straw) Urine Clarity Clear (Clear) Urine pH 6.0 (5.0-8.5) Ur Specific [place] 1.010 (1.002-1.035) Urine Protein Negative (Neg-Trace) mg/dL Urine Glucose (UA) Negative (Negative) mg/dL Urine Ketones Negative (Negative) mg/dL Urine Occult Blood Small H (Negative) Urine Nitrate Negative (Negative) Urine Bilirubin Negative (Negative) Urine Urobilinogen 0.2 (Less than 2) mg/dL Ur Leukocyte Esterase Trace H (Negative) Urine RBC 4-15 H (0-3) /hpf Urine WBC 0-5 (0-5) /hpf Ur Squamous Epith Cells 0-5 (0-5) /hpf Micro UA Comment Culture not ind Ur Microscopic Review Microscopic reviewed Urine Culture Comments Culture not ind Urine Opiates Screen Neg (Neg) Ur Barbiturates Screen Neg (Neg) Ur Amphetamines Screen Neg (Neg) U Benzodiazepines Scrn Neg (Neg) Urine Cocaine Screen Neg (Neg) U Cannabinoids Screen Neg (Neg) Imaging Data Radiologist's impression: Abdomen/Pelvis CT 02/17/18 21:50 CONCLUSION: 1. Negative noncontrast CT of the/pelvis. No evidence of retroperitoneal hematoma. Chest X-Ray 02/17/18 21:50 CONCLUSION: The lungs are clear. Head CT 02/17/18 21:50 CONCLUSION: 1. No acute findings in the brain. 2. 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 . ECG Data EKG Prior to Arrival: No Attestation: I personally reviewed and interpreted this ECG as follows: Prior ECG tracings: not available for review Interpretation: Normal sinus rhythm, 62 bpm, nonspecific ST-T wave changes, incomplete right bundle branch block pattern noted. Currently negative evidence of any acute ST elevation [place] pattern. Discharge Plan Discharge Disposition Patient Disposition: ED Admit(ED Internal Use Only) Discharge Condition Condition: Fair Discharge Order Discharge Orders: Discharge Order (Routine); Ordered 02/18/18 Ordered By: Tara Shaikh ED Use Only Admit Order (Routine); Ordered 02/18/18 Ordered By: Jesus Ramirez Discharge Details Anticipated Discharge Date: 02/18/18 Diagnosis: Syncope due to orthostatic hypotension Physicians Team ED Provider: Jesus Ramirez Primary Care Provider: Baljit Quezada Attending Provider: Tara Shaikh ED Status: Left Department Discharge Information Discharge Date/Time: 02/18/18 01:15
[2018-02-17 22:14] LABS: Chloride 100 meq/L (98-107); Potassium 3.3 meq/L (3.5-5.1); Sodium 136 meq/L (136-145)
[2018-02-17 22:17] LABS: Albumin 3.9 g/dL (3.4-5.0); Calcium 9.2 mg/dL (8.5-10.1)
[2018-02-17 22:18] LABS: Anion Gap 9 meq/L (5-15); Blood Urea Nitrogen 15 mg/dL (7-18); Carbon Dioxide 27.5 meq/L (21.0-32.0); Glucose,Random 150 mg/dL (74-106); Lipase 113 U/L (73-393)
[2018-02-17 22:21] LABS: Aspartate Aminotransferase 16 U/L (15-37); Glomerular Filtration Rate 50 mL/min (>89)
[2018-02-17 22:22] LABS: Alanine Aminotransferase 21 U/L (10-53); Total Protein 7.6 g/dL (6.4-8.2)
[2018-02-17 22:24] LABS: Alkaline Phosphatase 78 U/L (45-117)
--- NOTE | 2018-02-17 22:28 | XR ---
EXAM DATE: 02/17/2018 10:04 PM EST AGE/SEX: 63 years / Female INDICATIONS: Patient states she fainted. CLINICAL DATA: This is the patient's initial encounter. Patient reports that signs and symptoms have been present for 1 day and indicates a pain score of 0/10. MEDICAL/SURGICAL HISTORY: . Sciatica, skin cancer, myocardial infarction. Cholecystectomy. H ysterectomy. COMPARISON: [facility] [place], CHEST SINGLE AP, 05/28/2016. . FINDINGS: A single AP view of the chest demonstrates the lungs to be symmetrically aerated without evidence of mass, infiltrate or effusion. No evidence of pneumothorax. The cardiomediastinal contours are unrema rkable. Osseous structures are intact. CONCLUSION: The lungs are clear. Electronically signed by: Louie Nina MD Board Certified Radiologist 02/17/2018 10:27 PM EST
[2018-02-17 22:33] LABS: Creatine Kinase 85 U/L (26-192)
[2018-02-17 22:36] LABS: Activated Partial Thrombo Time 29.1 sec (23.4-31.7); Prothrombin Time 10.5 sec (9.8-11.6)
--- NOTE | 2018-02-17 22:46 | CT ---
EXAM DATE: 02/17/2018 10:32 PM EST AGE/SEX: 63 years / Female INDICATIONS: Syncope, dizziness. CLINICAL DATA: This is the patient's initial encounter. Patient reports that signs and symptoms have been present for 1 day and indicates a pain score of 0/10. MEDICAL/SURGICAL HISTORY: Myocardial infarction. Carcinoma, skin cancer. Degenerative Disc Disease . Hysterectomy. Cholecystectomy. RADIATION DOSE: 62.42 CTDI (mGy) COMPARISON: No prior exams available for comparison. TECHNIQUE: CT of the head without contrast. Using automated exposure control and adjustment of the mA and/or kV according to patient size, radiation dose was kept as low as reasonably achievable to ob tain optimal diagnostic quality images. DICOM format image data is available electronically for revi ew and comparison. FINDINGS: Cerebrum: The ventricles are normal for age. There is an 1 cm oval area of encephalomalacia in the right frontal white matter adjacent to the frontal horn with associated ex vacuo enlargement of the f rontal horn, characteristic of old infarction. No evidence of midline shift, mass lesion, hemorrhage or acute infarction. No extraaxial fluid collections are seen. Posterior Fossa: The cerebellum and brainstem are intact. The 4th ventricle is midline. The cerebe llopontine angle is unremarkable. Extracranial: The visualized portion of the orbits is intact. Skull: The calvaria is intact. No evidence of skull fracture. CONCLUSION: 1. No acute findings in the brain. 2. 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 . Electronically signed by: Louie Nina MD Board Certified Radiologist 02/17/2018 10:44 PM EST
--- NOTE | 2018-02-17 22:50 | CT ---
EXAM DATE: 02/17/2018 10:35 PM EST AGE/SEX: 63 years / Female INDICATIONS: Abdominal pain. Hypotensive. CLINICAL DATA: This is the patient's initial encounter. Patient reports that signs and symptoms have been present for 1 day and indicates a pain score of 3/10. MEDICAL/SURGICAL HISTORY: Myocardial infarction. Carcinoma, skin cancer. Degenerative Disc Dis ease. Hysterectomy. Cholecystectomy. RADIATION DOSE: 8.81 CTDI (mGy) COMPARISON: [facility], CT ABDOMEN W AND W/O CONTRAST, 08/30/2017. . TECHNIQUE: Multiple contiguous axial images were obtained through the abdomen. Images were obtained using multiple row detector helical technique. Using automated exposure control and adjustment of the mA and/or kV according to patient size, radiation dose was kept as low as reasonably achievable to o btain optimal diagnostic quality images. DICOM format image data is available electronically for rev iew and comparison. FINDINGS: Lower Lungs: The visualized lower lungs are clear. Right-sided Bochdalek hernia. Liver: The liver has a homogeneous density without space-occupying lesion for noncontrast technique. There is no dilation of the biliary tree. Cholecystectomy. Spleen: Homogeneous density without enlargement. Pancreas: Unremarkable without mass or calcification. Kidneys: Normal in size and shape. No evidence of mass or hydronephrosis. 2.5 cm cyst lower pole rig ht kidney. No calcified stones on either side. Adrenal Glands: Unremarkable. Aorta: The aorta and proximal iliac vessels are grossly unremarkable without aneurysmal dilation. Bowel/Mesentery: No dilated loops of small or large bowel. The appendix is identified medial to the cecum and has a normal appearance. There a few diverticula throughout the sigmoid colon without radio graphic evidence of diverticulitis. Abdominal Wall: Intact. Retroperitoneum: No evidence of adenopathy in the retrocrural, para-aortic, or deep pelvic regions. No evidence of free fluid or blood. Bladder: Contours are smooth. Reproductive Organs: No abnormal masses or calcifications seen. Inguinal: The inguinal region is unremarkable without evidence of adenopathy. Bony Structures: Unremarkable. CONCLUSION: 1. Negative noncontrast CT of the/pelvis. No evidence of retroperitoneal hematoma. Electronically signed by: Louie Nina MD Board Certified Radiologist 02/17/2018 10:49 PM EST
[2018-02-18] MEDS ORDERED: Temazepam 15 MG Capsule PO PRN (00:12)
[2018-02-18] MEDS ORDERED: Acetaminophen 325 MG Tablet PO PRN (00:12)
[2018-02-18 01:10] LABS: Bilirubin,Urine Negative (Negative); Clarity,Urine Clear (Clear); Color,Urine Yellow (Yellw/Straw); Glucose,Urine (UA) Negative (Negative); Leukocyte Esterase,Urine Trace (Negative); Nitrite,Urine Negative (Negative); Urobilinogen,Urine 0.2 mg/dL (Less than 2)
[2018-02-18 01:15] LABS: Squamous Epithelial Cell,Urine 0-5 /hpf (0-5); WBC,Urine 0-5 /hpf (0-5)
[2018-02-18 01:19] LABS: Cocaine Screen,Urine Neg (Neg)
[2018-02-18 01:23] LABS: Magnesium 1.8 mg/dL (1.5-2.5)
[2018-02-18 01:27] LABS: Amphetamine Screen,Urine Neg (Neg)
[2018-02-18 01:28] LABS: Barbiturate Screen,Urine Neg (Neg)
[2018-02-18 01:30] LABS: Cannabinoid Screen,Urine Neg (Neg)
[2018-02-18 01:37] LABS: Opiate Screen,Urine Neg (Neg)
[2018-02-18 09:18] LABS: Calcium 8.1 mg/dL (8.5-10.1); Potassium 3.8 meq/L (3.5-5.1); Sodium 142 meq/L (136-145)
[2018-02-18 09:53] LABS: Anion Gap 8 meq/L (5-15); Blood Urea Nitrogen 11 mg/dL (7-18); Carbon Dioxide 24.9 meq/L (21.0-32.0); Chloride 109 meq/L (98-107); Glomerular Filtration Rate 80 mL/min (>89); Glucose,Random 91 mg/dL (74-106)
--- NOTE | 2018-02-18 13:23 | ECG ---
Date Performed: 02/17/2018 Time Performed: 21:54:59 PTAGE: 63 years EKG: Sinus rhythm POSSIBLE RIGHT VENTRICULAR CONDUCTION DELAY NONSPECIFIC T-WAVE ABNORMALITY BORDERLINE ECG PREVIOUS TRACING : 11/02/2017 09.09 Since the previous tracing, no significant change noted DOCTOR: Barak Mcghee Interpretating Date/Time 02/18/2018 13:21:21
--- NOTE | 2018-02-18 15:22 | P.HP ---
History of Present Illness Service: internal medicine Primary Care Physician: Baljit Quezada MD History of Present Illness: 63 year old female brought to the emergency room by her after a syncopal episode. According to the patient she had raphael sitting iin her chair at home when she suddenly felt flushed and nauseous. According to her she slumped to the side and was unresponsive for aprox 45 sec. When she woke she had some emesis. This occurred twice on the way to the ER. Per her she had similar symptoms when she had her myocardial infarction. According to the patient she had been in her usual state of health until yesterday am. She experienced some of her chronic back pain and took a gabapentin 800 mg and had nothing else to eat or drink all day. She states she rarely takes the gabapentin as it makes her lightheaded and "fuzzy" She denied any chest pain or sob, no loss of control of bladder or urine. In the ER she was found to be hypotensive with slightly elevated creatinine. Her blood pressure did not improve after 1.5 liters of fluid I was told by the ER physician. The patient tells me today she is on the amlodipine for "spasms" in her heart when she had her STEMI. Apparently she has been lightheaded at times and Dr Quezada had told her to cut the amlodipine down to 2.5 but she had yet to do so. She does follow with a senior project architect with the [facility]. She has been eating and feeling fine today and wants to go home. She has been receiving IV fluids overnight. - Diagnosis (1) Syncope due to orthostatic hypotension Review of Systems All other systems reviewed negative except as stated in HPI PMFSH - History History Provided By: Patient, Family Member, Medical Record - Medical History Medical History: Medical History (Last Reviewed 02/18/18 @ 15:14 by Tara Shaikh MD) Degenerative disc disease H/O: hysterectomy Low back pain Myocardial infarction Sciatica Skin cancer - Surgical History Surgical History: Surgical History (Last Reviewed 02/18/18 @ 14:58 by Tara Shaikh MD) S/P cholecystectomy - Social History I have reviewed the patient's Social History: Yes - Tobacco History Second Hand Smoke Exposure: Yes Tobacco Use In Past 30 Days: No Smoking Status: Current every day smoker Tobacco Type: Cigarettes - Alcohol History How Often Do You Have a Drink Containing Alcohol: Never - Substance Use History Substance History: No History of Abuse - Travel History Recent Travel in the [place] Within the Last 8 Weeks: No Recent Travel Out of the Country Within the Last 8 Weeks: No - Immunization History Tetanus Immunization: >5 Years Medications and Allergies Active Medications: Active Medications Acetaminophen (Tylenol) 650 mg PO Q4H PRN PRN Reason: Temp > 100.4 Potassium Chloride/Sodium Chloride (Ns + Kcl 20 Meq Inj) 1,000 mls @ 100 mls/ hr IV.CONT .Q10H TEMITOPE Last Admin: 02/18/18 11:18 Dose: 100 mls/hr Ondansetron HCl (Zofran Inj) 4 mg IV.PUSH Q6H PRN PRN Reason: NAUSEA Sodium Chloride (Ns Flush) 2 ml IV.FLUSH UNSCH PRN PRN Reason: FLUSH AFTER USING IV ACCESS Temazepam (Restoril) 15 mg PO HS PRN PRN Reason: INSOMNIA Last Admin: 02/18/18 02:24 Dose: 15 mg Allergies Allergy/AdvReac Type Severity Reaction Status Date / Time No Known Allergies Allergy Verified 11/02/17 09:23 Home Medications Medication Instructions Recorded Confirmed Type amlodipine 5 mg PO DAILY 08/12/17 02/17/18 History aspirin 81 mg PO DAILY 08/12/17 02/17/18 History atorvastatin 80 mg PO HS 08/12/17 02/17/18 History gabapentin 800 mg PO TID PRN 08/12/17 02/17/18 History melatonin-herbal no.233 [MidNite] 1 tab PO HS PRN 02/17/18 02/17/18 History Exam Vital signs: Vital Signs 02/17/18 21:34 02/17/18 21:58 02/17/18 22:02 Temperature 97.0 F L Pulse Rate 62 Respiratory Rate 18 16 Blood Pressure 96/47 L Pulse Oximetry 92 L 94 L 02/17/18 22:07 02/17/18 23:18 02/18/18 00:06 Temperature Pulse Rate 64 66 72 Respiratory Rate 18 18 16 Blood Pressure 80/40 L 104/53 L 113/46 L Pulse Oximetry 95 96 98 02/18/18 03:24 02/18/18 04:00 02/18/18 07:30 Temperature 96.0 F L Pulse Rate 69 72 Respiratory Rate 18 Blood Pressure 127/58 L Pulse Oximetry 94 L 92 L 02/18/18 08:00 02/18/18 12:00 Temperature 97.1 F L 97.2 F L Pulse Rate 66 70 Respiratory Rate 14 16 Blood Pressure 109/57 L 100/43 L Pulse Oximetry 96 95 Intake & Output 02/17/18 02/18/18 02/18/18 18:59 06:59 18:59 Intake Total 2109 / 999 Balance 2109 / 999 Weight 70.1 kg Intake: IV 2109 NS + KCl 20 mEq Inj 1,000 ML @ 1000 / 1000 100 mls/hr IV.CONT .Q10H TEMITOPE Rx #:[id number] Calcium Gluconate Inj 1 GM In 110 / 110 NS Inj 100 ML @ 110 mls/hr IV. SIG ONCE ONE Rx#:[id number] NS Inj 1,000 ML @ Wide Open IV. 1999 SIG BOLUS ONE Rx#:[id number] Other: # Voids 2 Date of Last Bowel Movement 02/17/18 Weight On Admission 67.8 kg - Constitutional no acute distress, obese - Routine HEENT Exam Head: Present: normocephalic Eye: Present: EOMI ENT: Present: mucous membranes moist - Routine Neck Exam Present: supple, full ROM - Routine Respiratory Exam Present: CTA bilaterally - Routine Cardiovascular Exam Present: RRR - Routine Abdominal Exam Present: soft, normoactive bowel sounds - Routine Extremities Exam Present: full ROM - Routine Skin Exam Present: intact - Routine Neurological Exam Present: alert, oriented X3 Results - Labs CBC & Chem 7: 02/17/18 21:52 02/18/18 08:20 Labs: Laboratory Results - last 24 hr 02/17/18 02/17/18 02/17/18 21:50 21:52 21:52 CBC w Diff Auto diff final WBC 13.1 H RBC 4.63 Hgb 13.8 Hct 41.0 MCV 88.6 MCH 29.8 MCHC 33.6 RDW 14.1 Plt Count 412 MPV 6.8 L Neut % (Auto) 39.2 Lymph % (Auto) 49.8 H [place] % (Auto) 6.5 Eos % (Auto) 2.6 Baso % (Auto) 1.9 Neut # (Auto) 5.1 Lymph # (Auto) 6.6 H [place] # (Auto) 0.9 Eos # (Auto) 0.3 Baso # (Auto) 0.2 WBC Differential . Differential Comment . PT 10.5 INR 1.0 APTT 29.1 Sodium Potassium Chloride Carbon Dioxide Anion Gap BUN Creatinine Estimated GFR Random Glucose Lactic Acid 1.5 Calcium Magnesium Total Bilirubin AST ALT Alkaline Phosphatase Total Creatine Kinase Troponin I B-Natriuretic Peptide Total Protein Albumin Lipase Urine Color Urine Clarity Urine pH Ur Specific [place] Urine Protein Urine Glucose (UA) Urine Ketones Urine Occult Blood Urine Nitrate Urine Bilirubin Urine Urobilinogen Ur Leukocyte Esterase Urine RBC Urine WBC Ur Squamous Epith Cells Micro UA Comment Ur Microscopic Review Urine Culture Comments Urine Opiates Screen Ur Barbiturates Screen Ur Amphetamines Screen U Benzodiazepines Scrn Urine Cocaine Screen U Cannabinoids Screen 02/17/18 02/17/18 02/18/18 21:52 21:52 00:55 CBC w Diff WBC RBC Hgb Hct MCV MCH MCHC RDW Plt Count MPV Neut % (Auto) Lymph % (Auto) [place] % (Auto) Eos % (Auto) Baso % (Auto) Neut # (Auto) Lymph # (Auto) [place] # (Auto) Eos # (Auto) Baso # (Auto) WBC Differential Differential Comment PT INR APTT Sodium 136 Potassium 3.3 L Chloride 100 Carbon Dioxide 27.5 Anion Gap 9 BUN 15 Creatinine 1.10 H Estimated GFR 50 L Random Glucose 150 H Lactic Acid Calcium 9.2 Magnesium 1.8 Total Bilirubin 0.6 AST 16 ALT 21 Alkaline Phosphatase 78 Total Creatine Kinase 85 Troponin I Less than 0.02 L Less than 0.02 L B-Natriuretic Peptide 7 Total Protein 7.6 Albumin 3.9 Lipase 113 Urine Color Urine Clarity Urine pH Ur Specific [place] Urine Protein Urine Glucose (UA) Urine Ketones Urine Occult Blood Urine Nitrate Urine Bilirubin Urine Urobilinogen Ur Leukocyte Esterase Urine RBC Urine WBC Ur Squamous Epith Cells Micro UA Comment Ur Microscopic Review Urine Culture Comments Urine Opiates Screen Ur Barbiturates Screen Ur Amphetamines Screen U Benzodiazepines Scrn Urine Cocaine Screen U Cannabinoids Screen 02/18/18 02/18/18 02/18/18 00:55 00:55 08:20 CBC w Diff WBC RBC Hgb Hct MCV MCH MCHC RDW Plt Count MPV Neut % (Auto) Lymph % (Auto) [place] % (Auto) Eos % (Auto) Baso % (Auto) Neut # (Auto) Lymph # (Auto) [place] # (Auto) Eos # (Auto) Baso # (Auto) WBC Differential Differential Comment PT INR APTT Sodium 142 Potassium 3.8 Chloride 109 H D Carbon Dioxide 24.9 Anion Gap 8 BUN 11 Creatinine 0.73 Estimated GFR 80 L Random Glucose 91 Lactic Acid Calcium 8.1 L D Magnesium Total Bilirubin AST ALT Alkaline Phosphatase Total Creatine Kinase Troponin I Less than 0.02 L B-Natriuretic Peptide Total Protein Albumin Lipase Urine Color Yellow Urine Clarity Clear Urine pH 6.0 Ur Specific [place] 1.010 Urine Protein Negative Urine Glucose (UA) Negative Urine Ketones Negative Urine Occult Blood Small H Urine Nitrate Negative Urine Bilirubin Negative Urine Urobilinogen 0.2 Ur Leukocyte Esterase Trace H Urine RBC 4-15 H Urine WBC 0-5 Ur Squamous Epith Cells 0-5 Micro UA Comment Culture not ind Ur Microscopic Review Microscopic reviewed Urine Culture Comments Culture not ind Urine Opiates Screen Neg Ur Barbiturates Screen Neg Ur Amphetamines Screen Neg U Benzodiazepines Scrn Neg Urine Cocaine Screen Neg U Cannabinoids Screen Neg - Imaging Impressions Abdomen/Pelvis CT 02/17/18 21:50 CONCLUSION: 1. Negative noncontrast CT of the/pelvis. No evidence of retroperitoneal hematoma. Chest X-Ray 02/17/18 21:50 CONCLUSION: The lungs are clear. Head CT 02/17/18 21:50 CONCLUSION: 1. No acute findings in the brain. 2. 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 . Caprini VTE Risk Assessment Caprini VTE Risk Assessment: Moderate/High Risk (score >= 2) Caprini Risk Assessment Model: Point Value = 1 Point Value = 2 Point Value = 3 Point Value = 5 Age 41-60 Minor surgery BMI > 25 kg/m2 Swollen legs Varicose veins or History of unexplained or recurrent spontaneous Oral contraceptives or hormone replacement Sepsis (< 1 month) Serious lung disease, including pneumonia (< 1 month) Abnormal pulmonary function Acute myocardial infarction Congestive heart failure (< 1 month) History of inflammatory bowel disease Medical patient at bed rest Age 61-74 Arthroscopic surgery Major open surgery (> 45 min) Laparoscopic surgery (> 45 min) Malignancy Confined to bed (> 72 hours) Immobilizing plaster cast Central venous access Age >= 75 History of VTE Family history of VTE Factor V Leiden Prothrombin [id number] Lupus anticoagulant Anticardiolipin antibodies Elevated serum homocysteine Heparin-induced thrombocytopenia Other congenital or acquired thrombophilia Stroke (< 1 month) Elective arthroplasty Hip, pelvis, or leg fracture Acute spinal cord injury (< 1 month) Prophylaxis Regimen: Total Risk Factor Score Risk Level Prophylaxis Regimen 0-1 Low Early ambulation 2 Moderate Order ONE of the following: *Sequential Compression Device (SCD) *Heparin 5000 units SQ BID 3-4 Higher Order ONE of the following medications: *Heparin 5000 units SQ TID *Enoxaparin/Lovenox 40 mg SQ daily (WT < 150 kg, CrCl > 30 mL/min) *Enoxaparin/Lovenox 30 mg SQ daily (WT < 150 kg, CrCl > 10-29 mL/min) *Enoxaparin/Lovenox 30 mg SQ BID (WT < 150 kg, CrCl > 30 mL/min) AND/OR *Sequential Compression Device (SCD) 5 or more Highest Order ONE of the following medications: *Heparin 5000 units SQ TID (Preferred with Epidurals) *Enoxaparin/Lovenox 40 mg SQ daily (WT < 150 kg, CrCl > 30 mL/min) *Enoxaparin/Lovenox 30 mg SQ daily (WT < 150 kg, CrCl > 10-29 mL/min) *Enoxaparin/Lovenox 30 mg SQ BID (WT < 150 kg, CrCl > 30 mL/min) AND *Sequential Compression Device (SCD) Assessment and Plan - Assessment (1) Syncope due to orthostatic hypotension Code(s): I95.1 - Orthostatic hypotension Status: Resolved Plan: AAfter lengthy discussion with patient and and review of her outside medical records where her blood pressures have been charted in the 90's systolic my opinion is that the patient was dehydrated provoking a further drop in an already low blood pressure. Her blood pressure here has improved overnight and repeat orthostatics on the floor were negative. I Have advised her that she should decrease her amlodipine to 2.5 as she states she was instructed by Dr Quezada and follow up with her senior project architect Dr Parker as well. - Plan Discharge home today Discussed Condition With: patient and
[2018-02-18 15:54] VITALS: BP 114/50; RESP 18; TEMP 96.3; O2SAT 98
[2018-02-18 17:39] VITALS: PULSE 70
== END 2018-02-18 17:35 | disposition home or self-care (01) ==
LOC: PHED 21:31 → PHEDA 21:31 → PH3 02-18 01:03
PROVIDERS: ADMIT Legal Medicine; ATTEND Legal Medicine
DX: F17.210 Nicotine dependence, cigarettes, uncomplicated; G89.29 Other chronic pain; I25.2 Old myocardial infarction; M54.40 Lumbago with sciatica, unspecified side; I25.10 Atherosclerotic heart disease of native coronary artery without angina pectoris; Z90.710 Acquired absence of both cervix and uterus; E78.00 Pure hypercholesterolemia, unspecified; R55 Syncope and collapse; Z79.82 Long term (current) use of aspirin; E86.0 Dehydration; Z90.49 Acquired absence of other specified parts of digestive tract; I10 Essential (primary) hypertension; C44.90 Unspecified malignant neoplasm of skin, unspecified
CPT/HCPCS: 70450; 71010; 71045; 74176; 80048; 80053; 80307; 81001; 82550; 83520; 83605; 83690; 83735; 83880; 84484; 85025; 85610; 85730; 87040; 90765; 93005; 96361; 96365; 99291; G0378; J0610; J3480; J7030